=== PATIENT | female | born 1945 | race Caucasian/White ===

== ENCOUNTER → 2018-02-20 14:42 | Outpatient (REF) | payer MEDICARE, BC, SELFPAY ==
[2018-02-21 11:30] LABS: Campylobacter PCR SEE COMMENTS; Salmonella PCR SEE COMMENTS; Shiga Toxin PCR SEE COMMENTS; Shigella/Enteroinvasive Ecoli SEE COMMENTS
== END ==
LOC: LBN 14:42
PROVIDERS: PCP Family Medicine; Visit Provider Family Medicine
DX: R19.7 Diarrhea, unspecified (principal)
CPT/HCPCS: 87329; 87505; 82272; 87230; 87324

== ENCOUNTER → 2018-02-23 10:48 | Outpatient (CLI) | payer MEDICARE, BC, SELFPAY ==
[2018-02-23 13:08] LABS: HCT 41.1 % (36.0-46.0); HGB 13.6 g/dL (12.0-15.5); Mean Corp. HGB Concentration 33.1 g/dL (32.0-36.0); Mean Corpuscular Hemoglobin 32.8 pg (27.0-33.0); Mean Platelet Volume 10.5 fL (8.0-11.0); Platelet Count 279 x1000/uL (130-400); RBC 4.15 m/cumm (4.00-5.20); RBC Distribution Width 12.6 % (11.7-14.6); White Blood Cell Count 4.07 k/cumm (4.4-10.8)
== END ==
PROVIDERS: PCP Family Medicine; Visit Provider Family Medicine
DX: K92.1 Melena (principal)
CPT/HCPCS: 36415; 85027

== ENCOUNTER 2018-06-20 01:55 | Outpatient (CLI) | payer MEDICARE, BC, SELFPAY ==
[2018-06-20 16:14] LABS: ALT 23 U/L (12-78); AST 20 U/L (15-37); Albumin 3.9 g/dL (3.4-5.0); Alkaline Phosphatase 84 U/L (46-116); Anion Gap 8.4 mmol/L (3-11); BUN 16 mg/dL (7-18); Bilirubin, Total 0.3 mg/dL (0.2-1.0); CO2 27.6 mmol/L (21.0-32.0); CREATININE 1.08 mg/dL (0.55-1.02); Calcium 9.3 mg/dL (8.5-10.1); Chloride 105 mmol/L (98-107); Estimated GFR 50.01 (mL/min/1.73m2); Glucose 102 mg/dL (70-100); Potassium 4.4 mmol/L (3.5-5.1); Sodium 141 mmol/L (136-145); TSH (W/Ref FT4) 0.16 uIU/mL (0.358-3.74); Total Protein 6.8 g/dL (6.4-8.2)
[2018-06-20 16:31] LABS: FREE T4 0.91 ng/dL (0.76-1.46)
== END 2018-06-20 02:15 ==
PROVIDERS: PCP Family Medicine; Visit Provider Family Medicine
DX: E03.9 Hypothyroidism, unspecified (principal); N25.9 Disorder resulting from impaired renal tubular function, unspecified
CPT/HCPCS: 80053; 84439; 84443

== ENCOUNTER → 2018-06-29 08:50 | Outpatient (BNVA) | payer MEDICARE, BC, SELFPAY | PROVIDERS: PCP Family Medicine; Visit Provider Urology | DX: N39.0 Urinary tract infection, site not specified (principal); M62.89 Other specified disorders of muscle | CPT/HCPCS: 81003; 99213 ==

== ENCOUNTER 2018-06-29 13:09 | Outpatient (REF) | payer MEDICARE, BC, SELFPAY | END 2018-06-29 13:29 | LOC: LBN 13:09 | PROVIDERS: PCP Family Medicine; Visit Provider Urology | DX: N39.0 Urinary tract infection, site not specified (principal) | CPT/HCPCS: 87077; 87086; 87186 ==

== ENCOUNTER 2018-07-27 07:36 | Day surgery (SDC) | payer MEDICARE, BC, SELFPAY ==
--- NOTE | 2018-07-26 18:16 | W.PIPPEYE ---
History of Present Illness Chief Complaint: Progressive decreased vision, right eye Narrative: The patient is a 72-year-old lady with history of progressive decreased vision in both eyes at both distance and near over the past several months. She notes significant difficulty driving with blurry fuzzy foggy and cloudy vision in both eyes. On examination she was noted to have bilateral nuclear and posterior subcapsular cataracts, with best corrected vision of 20/40 OD, 20/50 OS. The option of cataract surgery was offered to the patient and she wished to proceed. NOTE: The Chief Complaint, HPI, Past Medical History, Past Surgical History, Family History, Social History, Medications, and complete Ophthalmic Exam with detailed Assessment and Plan have already been documented in the patient's outpatient ophthalmic record and are not covered again in detail here. 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) Mild intermittent asthma with acute exacerbation (Chronic 07/07/15) Microscopic hematuria (Chronic 09/11/15) Low back pain (Chronic 07/29/08) Labial burning (Resolved 06/30/15) Irritable bowel syndrome with constipation (Chronic 09/18/17) Impaired renal function disorder (Chronic 09/12/12) Idiopathic peripheral neuropathy (Chronic) Hypothyroidism (Chronic 06/10/08) Hypercholesterolemia (Chronic) Hoarseness (Chronic 12/25/14) 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) Gastroparesis (Chronic) Endometrial polyp (Chronic 04/14/16) Endometrial mass (Chronic 03/07/16) Cough (Chronic) Congestion of both ears (Chronic 01/24/18) Chronic sinusitis (Chronic 02/25/13) Bloating (Chronic 09/18/17) Bipolar disorder (Chronic) Arthritis (Chronic) Surgical History Colonoscopy - MAC Dilation and curettage (03/31/16) EGD - MAC (05/15/14) Hysteroscopy (03/31/16) SHOULDER REPLACEMENT Social History Smoking/Tobacco Use Status: Former Tobacco Use Meds Home Medications Medication Instructions Recorded Confirmed Type Advair Diskus 1 puff INHALATION BID #3 puff 11/19/12 07/25/18 History acetaminophen [Tylenol Extra 2 tab PO Q4H PRN PRN tab-cap 11/19/12 07/25/18 History Strength] calcium carbonate-vitamin D3 2 tab PO BID 11/19/12 07/25/18 History [Caltrate with Vitamin D3] duloxetine [Cymbalta] 1 cap PO DAILY #90 tab-cap 11/19/12 07/25/18 History multivitamin 1 tab PO DAILY 11/19/12 07/25/18 History quetiapine [Seroquel] 1.5 tab PO HS #90 tab-cap 01/16/14 07/25/18 History polyethylene glycol 3350 [Miralax] 17 g PO BID PRN packet 06/03/14 07/25/18 History ondansetron HCl 4 mg PO Q8H PRN #90 tab-cap 02/11/15 07/25/18 History ProAir HFA 2 puff INHALATION Q4H PRN #1 01/20/16 07/25/18 History canister betamethasone dipropionate 15 gm TOPICAL BID PRN #1 script 10/05/16 07/25/18 History estradiol [Estrace] 2 g VG twice weekly #2 tube 05/26/17 07/25/18 Rx atorvastatin [Lipitor] 1 tab PO DAILY #90 tab-cap 08/02/17 07/25/18 Rx levothyroxine 1 tab PO DAILY #90 tab-cap 08/02/17 07/25/18 Rx triamcinolone acetonide 15 gm TOPICAL DAILY PRN #15 gm 09/05/17 07/25/18 History cyclobenzaprine 10 mg PO HS PRN #7 tab-cap 12/12/17 07/11/18 History bupropion HCl 300 mg PO DAILY #1 tab-cap 02/20/18 07/25/18 Rx cranberry [id number] coag 2 ea PO TID 02/20/18 07/25/18 History [Cranberry Tablet] lutein 20 mg PO DAILY 02/20/18 07/25/18 History melatonin 15 mg PO HS 02/20/18 07/25/18 History dexlansoprazole [Dexilant] 60 mg PO DAILY #90 tab-cap 03/12/18 07/25/18 Rx fluticasone 50 mcg/actuation nasal 1 spray NS BID PRN #1 bottle 06/19/18 07/25/18 Rx spray,suspension topiramate 100 mg tablet 100 mg PO HS tab 06/21/18 07/25/18 History linaclotide 145 mcg capsule 290 mcg PO DAILY cap 06/29/18 07/25/18 History acyclovir 15 gm TOPICAL as directed PRN 07/25/18 07/25/18 History azelastine 2 spry NS BID PRN 07/25/18 07/25/18 History gabapentin 600 mg PO HS 07/25/18 07/25/18 History gabapentin [Neurontin] 300 cap PO QAM 07/25/18 07/25/18 History Allergies Allergy/AdvReac Type Severity Reaction Status Date / Time sulfamethoxazole Allergy Severe throat Unverified 07/11/18 14:37 [From Bactrim] swelling, difficulty breathing trimethoprim [From Bactrim] Allergy Severe throat Unverified 07/11/18 14:37 swelling, difficulty breathing Penicillins Allergy Intermediate Hives, Unverified 07/11/18 14:37 tongue swells ibuprofen Allergy Mild Unverified 07/11/18 14:37 clarithromycin AdvReac Intermediate slurred Unverified 07/11/18 14:37 speech, confusion, balance problems Exam OCULAR EXAM:: Most recent ocular examination reveals best corrected visual acuity of 20/40 OD, 20/50 OS. Intraocular pressure is 14 OD, 13 OS. Extraocular motility is normal. Pupils equal, round, and reactive without afferent pupillary defect. Slit-lamp examination shows pupils dilating to 6 mm OU. 2+ brunescent nuclear cataract OU. 3+ posterior subcapsular cataract OD with 1-2+ posterior subcapsular cataract OS. Funduscopic examination reveals optic nerves with cupping of 0.3 OU with good color. The optic nerves have good perfusion and normal color. The retinal vasculature is normal without significant tortuosity or abnormality. The maculas are normal in appearance with normal contour and foveal reflex appropriate for age. The peripheral retina and vitreous are normal. BRIGHTNESS ACUITY TESTING (BAT):: Brightness acuity testing of the right eye off 20/40. Low 20 620/80. Assessment and Plan (1) Posterior subcapsular age-related cataract, right eye: Current visit: No Status: Acute Assessment: Visually significant cataract, right eye. Plan: Cataract extraction with intraocular lens implantation, right eye (2) Nuclear sclerotic cataract of right eye: Current visit: No Status: Acute Assessment: Visually significant cataract, right eye. Plan: Cataract extraction with intraocular lens implantation, right eye Note: NOTE:: The details of the planned surgery, including the risks, indications,limitations,expectations,outcome and possible complications were explained to the patient. The patient understands the complications including, but not limited to: infection, hemorrhage, posterior dislocation of the lens or nuclear fragments which may require the intervention of a vitreoretinal surgeon, possible loss of the eye, or from anesthetic complications. The patient has been made aware of the option of not having surgery, that vision following surgery may not be equal to that prior to surgery, and that the planned surgery may not achieve the intended results. Following this discussion, which the patient appeared to understand, the patient wishes to proceed with cataract surgery with lens implantation of the affected eye to improve and maximize vision.
[2018-07-27 07:53] VITALS: BP 113/78; PULSE 94; RESP 18; TEMP 36.8; O2SAT 95
[2018-07-27] MEDS: Tropicam./Phenyleph. (1/2.5%) 5 ML BTL OD ×3 (08:14→08:25)
[2018-07-27] MEDS: Tetracaine 0.5% 4 ML BTL OD ×4 (08:15→09:22)
[2018-07-27] MEDS: Lidocaine 2% Jelly 6 ML SYR (09:22)
[2018-07-27] MEDS: Lidocaine 1% Pres-Free 5 ML VIAL (09:28)
[2018-07-27] MEDS: Balanced Salt Soln.-PLUS 500 ML BAG (09:28)
[2018-07-27] MEDS: Povidone-Iodine Ophth 30 ML BTL (09:50)
--- NOTE | 2018-07-27 10:00 | W.PM.DSUDISC ---
Discharge Plan Discharge Details Reason For Visit: CATARACT OD Attending Provider: Ernie Branham Primary Care Provider: Marely Singh Home Meds and New Rx's Prescriptions: No Action topiramate [Topamax] 100 mg tablet 100 mg PO HS RF: 0 multivitamin 1 EACH tablet 1 tab PO DAILY RF: 0 Advair Diskus 1 EACH blister with device 1 puff Inhalation BID Qty: 3 RF: 4 acetaminophen [Tylenol Extra Strength] 500 MG tablet 2 tab PO Q4H PRN PRNRF: 0 duloxetine [Cymbalta] 60 MG capsule,delayed release(DR/EC) 1 cap PO DAILY Qty: 90 RF: 4 calcium carbonate-vitamin D3 [Caltrate with Vitamin D3] 1 EACH tablet 2 tab PO BID RF: 0 polyethylene glycol 3350 [Miralax] 17 GM powder in packet 17 g PO BID PRNRF: 0 ondansetron HCl 4 MG tablet 4 mg PO Q8H PRN Qty: 90 RF: 3 ProAir HFA 8.5 GM HFA aerosol inhaler 2 puff Inhalation Q4H PRN Qty: 1 RF: 12 betamethasone dipropionate 15 GM ointment 15 gm Topical BID PRNQty: 1 RF: 0 estradiol [Estrace] 42.5 GM cream 2 g VG twice weekly Qty: 2 RF: 4 levothyroxine 112 MCG tablet 1 tab PO DAILY Qty: 90 RF: 4 atorvastatin [Lipitor] 20 MG tablet 1 tab PO DAILY Qty: 90 RF: 4 triamcinolone acetonide 15 GM ointment 15 gm Topical DAILY PRNQty: 15 RF: 3 cyclobenzaprine 10 MG tablet 10 mg PO HS PRNQty: 7 RF: 0 cranberry avyf-N-wgvvqwlc coag [Loqfjlxta-Icdgybznnh-Tqoytwf C] 1 EACH tablet 2 ea PO TID RF: 0 lutein 20 MG tablet 20 mg PO DAILY RF: 0 melatonin 10 MG tablet 15 mg PO HS RF: 0 bupropion HCl 300 MG tablet extended release 24 hr 300 mg PO DAILY Qty: 1 RF: 0 Dexilant 60 MG capsule,biphase delayed releas 60 mg PO DAILY Qty: 90 RF: 12 fluticasone [Flonase Allergy Relief] 50 mcg/actuation spray,suspension 1 spray NS BID PRN (Reason: nasal congestion) Qty: 1 RF: 11 Linzess 145 mcg capsule 290 mcg PO DAILY RF: 0 gabapentin 600 mg Tablet 600 mg PO HS RF: 0 acyclovir 15 GM ointment 15 gm Topical as directed PRNRF: 0 gabapentin [Neurontin] 300 MG capsule 300 cap PO QAM RF: 0 azelastine 137 MCG/0.137 ML aerosol,spray 2 spry NS BID PRNRF: 0 Discharge Instructions Stand Alone Forms: Post-op Topical Cataract, Janie Helm (DSU) DS: Diagnosis Discharge Diagnosis (1) Status post cataract extraction and insertion of intraocular lens of right eye: Status: Chronic
--- NOTE | 2018-07-27 10:02 | W.PM.OP ---
Date of service: 07/27/18 Time of Service: 10:02 Operative Note DATE OF PROCEDURE: 07/27/18 PRE-OP DIAGNOSIS: Cataract, right eye PROCEDURE: Cataract extraction using phacoemulsification with intraocular lens implant, right eye SURGEON: Ernie Branham ANESTHESIA: MAC and local (sub-tenon's anesthetic infiltration) ESTIMATED BLOOD LOSS: 0 PATHOLOGY: none sent COMPLICATIONS: None Patient was transported to: same day Patient's condition: stable Implants: Theron and [employer] Vision / [employer] Tecnis [id number] intraocular lens Indications: Progressive decreased vision due to cataract, right eye Procedure Description: CATARACT SURGERY OPERATIVE REPORT PREOPERATIVE DIAGNOSIS: Nuclear/posterior subcapsular cataract, right eye POSTOPERATIVE DIAGNOSIS: Same OPERATION: Cataract extraction using phacoemulsification with posterior chamber intraocular lens implant, right eye. IOL: IOL Wad Lubricator/Model: [employer] Vision / CHELI Tecnis ZCB00 IOL Power: + 15.0 diopters IOL Serial Number: [id number] Optic Diameter: 6.0mm Haptic/Overall Diameter: 13.0mm PHACO INFO: [employer] Technologyon Vision System with OZil and Active Fluidics Cumulative Dispersed Energy (CDE): 12.28 seconds SURGEON: Ernie Branham MD, AXEL ANESTHESIA: Monitored Anesthesia Care (MAC), with local sub-tenon's anesthetic infiltration COMPLICATIONS: None SPECIMENS: None INDICATIONS FOR PROCEDURE: The patient is a 72-year-old lady with history of moderate nuclear and dense posterior subcapsular cataract with visual acuity of 20/40 distance, 20/400 near. The option of cataract surgery was offered to the patient and she wished to proceed. PROCEDURE: The correct surgical eye was identified and marked as the right eye and the pupil was dilated in the preoperative area using mydriatics and cycloplegics. The dilated pupil size was 7.5 mm. Oral sedation was administered in the form of an Imprimis MKO Melt (midazolam 3mg/ketamine 25mg/ondansetron 2mg). The patient was brought to the operating room where cardiopulmonary monitoring was instituted and surgical time-out was performed, confirming the correct operative eye and IOL power. Topical anesthesia was administered and ophthalmic povidone-iodine 5% was instilled into the conjunctival fornices. Lidocaine gel was applied to the cornea and the dulce-ocular area was prepped with Betadine 10% solution and draped in the usual sterile fashion for intraocular surgery, including an aperture drape. A Tegaderm transparent film dressing was cut in half and used to cover the lashes and lid margins. Care was taken to sequester the lashes and lid margins under the Tegaderm dressing. A lid speculum was placed between the lids of the operative eye and the Jimmie-Jeffrey operating microscope was maneuvered into position. Anne-Marie scissors were then used to make a conjunctival buttonhole approximately 6mm posterior to the limbus in the inferonasal quadrant. Blunt dissection was carried out to expose bare sclera, and a blunt-tipped sub-tenon?s anesthesia cannula was introduced and passed posteriorly along the globe where non-preserved plain lidocaine was injected into posterior sub-Tenon?s space. A sideport knife was used to make a paracentesis port inferiortemporally, and the anterior chamber was filled with Healon GV. A 2.4mm keratome knife was used to create a half-thickness groove at the limbus and then to construct a three-plane near-clear corneal tunnel extending 2.0mm into clear cornea in the superiortemporal position. . A flap was raised on the anterior capsule and capsulorhexis forceps were used to complete a continuous curvilinear capsulorhexis of 5.0 mm. Balanced salt solution was then used to perform cortical cleaving hydrodissection and nuclear hydrodelineation until the lens could be freely rotated within the capsular bag. The lens nucleus was then disassembled and removed within the capsular bag and iris plane using phacoemulsification. Residual cortical material was removed using the 45-degree angled silicone I/A tip with 0.3mm port. The posterior capsule was carefully polished to remove as much residual lens epithelial cells as safely possible. There was some residual posterior subcapsular plaque superiorly in the equatorial area which could not be safely removed. The capsular bag was then inflated and the anterior chamber deepened with viscoelastic. The lens implant described above was inserted into the capsular bag using the CHELI [place] Injector. A Kuglen hook was used to dial the IOL into position. Residual viscoelastic was then removed first from posterior to the IOL, then from the anterior chamber using the I/A handpiece. The lens implant was noted to center nicely within the capsular bag. The incisions were stromally hydrated, and the anterior chamber was reformed using BSS. Then 0.4cc of moxifloxacin 1.5mg/ml were injected into the capsular bag and anterior chamber. The incisions were checked with a Weck spear and found to be secure. Several drops of ophthalmic povidone-iodine 5% were then applied to the eye followed by two drops of Imprimis combination moxifloxacin/dexamethasone solution. The drapes were removed and a clear plastic protective eye shield was placed over the eye. The patient was then returned to Same Day Surgery in stable condition.
[2018-07-27 10:58] VITALS: BP 106/53; PULSE 87; RESP 18; TEMP 36.5; O2SAT 95
== END 2018-07-27 10:55 | disposition home or self-care (01) ==
LOC: SUR 07:37
PROVIDERS: PCP Family Medicine; Visit Provider Ophthalmology
PROC: (CPT 66984; principal; 2018-07-27 09:30)
DX: H25.811 Combined forms of age-related cataract, right eye (principal)
CPT/HCPCS: 66984; V2632

== ENCOUNTER 2018-08-03 00:29 | Outpatient (CLI) | payer MEDICARE, BC, SELFPAY ==
--- NOTE | 2018-08-03 12:41 | DI.US_ITS ---
SYMPTOM/DIAGNOSIS: ? STONE OR HYDRONEPHROSIS, PELVIC FLOOR DYSFUNCTION, RECURRENT UTI, M62.89, OTHER SPECIFIC DISORDER OF MUSCLE, N39.0 RENAL ULTRASOUND: Routine examination. The right kidney measures 9 cm. long. No renal mass, calculus or obstruction is seen. There is blood flow to the right kidney. The left kidney measures 10.1 cm. long. No renal mass or obstruction is seen. There is an echogenic focus seen in the upper pole of the left kidney. This may represent a non obstructing stone or cortical calcification. There is normal blood flow to the left kidney. The prevoid urinary bladder volume is 170 cc's. The bladder wall is smooth. No intraluminal masses are seen. Both ureteral jets were visualized. The bladder completely emptied upon voiding. IMPRESSION: No evidence of hydronephrosis. Tiny, 4 mm. echogenic focus in the superior pole of the left kidney which may represent a non obstructing stone.
== END 2018-08-03 00:49 ==
PROVIDERS: PCP Family Medicine; Visit Provider Urology
DX: N36.44 Muscular disorders of urethra (principal); N39.0 Urinary tract infection, site not specified; N20.0 Calculus of kidney; M62.89 Other specified disorders of muscle
CPT/HCPCS: 76770

== ENCOUNTER → 2018-08-07 15:20 | Outpatient (BNVA) | payer MEDICARE, BC, SELFPAY | PROVIDERS: PCP Family Medicine; Visit Provider Urology | DX: N39.0 Urinary tract infection, site not specified (principal); B96.20 Unspecified Escherichia coli [E. coli] as the cause of diseases classified elsewhere | CPT/HCPCS: 81003; 99213 ==

== ENCOUNTER 2018-08-07 17:37 | Outpatient (REF) | payer MEDICARE, BC, SELFPAY | END 2018-08-07 17:57 | LOC: LBN 17:37 | PROVIDERS: PCP Family Medicine; Visit Provider Urology | DX: N39.0 Urinary tract infection, site not specified (principal); R10.2 Pelvic and perineal pain | CPT/HCPCS: 87077; 87086; 87186 ==

== ENCOUNTER 2018-08-09 00:22 | Outpatient (CLI) | payer MEDICARE, BC, SELFPAY ==
--- NOTE | 2018-08-09 10:43 | DI.US_ITS ---
SYMPTOMS/DIAGNOSIS: NONTOXIC THYROID NODULE RT, E04.1 THYROID ULTRASOUND: The right thyroid lobe measures 2 x 1 x 1 cm. The isthmus measures 2.4 mm. The left thyroid lobe measures 2.2 x 0.8 x 0.7 cm. There is a well circumscribed 7 x 3 x 6 mm nodule in the mid portion of the right thyroid lobe. Mild vascularity is demonstrated. Both the right and left thyroid lobes are acoustically heterogeneous. SUMMARY: A right thyroid lobe nodule has a maximal diameter of 7 mm. The cut off for a biopsy is generally considered to be approximately 10 mm, however, if there is further question regarding the status of this patient, then ultrasound guided needle biopsy could be performed.
== END 2018-08-09 00:42 ==
PROVIDERS: PCP Family Medicine; Visit Provider Family Medicine
DX: E04.1 Nontoxic single thyroid nodule (principal)
CPT/HCPCS: 76536

== ENCOUNTER 2018-08-10 07:30 | Day surgery (SDC) | payer MEDICARE, BC, SELFPAY ==
--- NOTE | 2018-08-09 18:52 | POEE_ITS ---
History of Present Illness Chief Complaint: Progressive decreased vision, left eye Narrative: The patient is a 72-year old lady with history of diminished visual acuity in both eyes at both distance and near, right eye worse than left. She noted blurry fuzzy foggy and cloudy vision in both eyes. She was noted to have significant bilateral nuclear and posterior subcapsular cataract. She underwent cataract surgery in the right eye on 07/27/2018. Postoperatively she has regained uncorrected vision of 20/20 in the right eye. She now presents for cataract surgery in the left eye. NOTE: The Chief Complaint, HPI, Past Medical History, Past Surgical History, Family History, Social History, Medications, and complete Ophthalmic Exam with detailed Assessment and Plan have already been documented in the patient's outpatient ophthalmic record and are not covered again in detail here. 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) Mild intermittent asthma with acute exacerbation (Chronic 07/07/15) Microscopic hematuria (Chronic 09/11/15) Low back pain (Chronic 07/29/08) Labial burning (Resolved 06/30/15) Irritable bowel syndrome with constipation (Chronic 09/18/17) Impaired renal function disorder (Chronic 09/12/12) Idiopathic peripheral neuropathy (Chronic) Hypothyroidism (Chronic 06/10/08) Hypercholesterolemia (Chronic) Hoarseness (Chronic 12/25/14) 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) Gastroparesis (Chronic) Endometrial polyp (Chronic 04/14/16) Endometrial mass (Chronic 03/07/16) Cough (Chronic) Congestion of both ears (Chronic 01/24/18) Chronic sinusitis (Chronic 02/25/13) Bloating (Chronic 09/18/17) Bipolar disorder (Chronic) Arthritis (Chronic) Nuclear sclerotic cataract of right eye (Resolved) Posterior subcapsular age-related cataract, right eye (Resolved) Surgical History Status post cataract extraction and insertion of intraocular lens of right eye (Chronic 07/27/18) Colonoscopy - MAC Dilation and curettage (03/31/16) EGD - MAC (05/15/14) Hysteroscopy (03/31/16) SHOULDER REPLACEMENT Social History Smoking/Tobacco Use Status: Former Tobacco Use Meds Home Medications Medication Instructions Recorded Confirmed Type Advair Diskus 1 puff INHALATION BID #3 puff 11/19/12 08/02/18 History acetaminophen [Tylenol Extra 2 tab PO Q4H PRN PRN tab-cap 11/19/12 08/02/18 History Strength] calcium carbonate-vitamin D3 2 tab PO BID 11/19/12 08/02/18 History [Caltrate with Vitamin D3] duloxetine [Cymbalta] 1 cap PO DAILY #90 tab-cap 11/19/12 08/02/18 History multivitamin 1 tab PO DAILY 11/19/12 08/02/18 History polyethylene glycol 3350 [Miralax] 17 g PO BID PRN packet 06/03/14 08/02/18 History ondansetron HCl 4 mg PO Q8H PRN #90 tab-cap 02/11/15 08/02/18 History ProAir HFA 2 puff INHALATION Q4H PRN #1 01/20/16 08/02/18 History canister betamethasone dipropionate 15 gm TOPICAL BID PRN #1 script 10/05/16 08/02/18 History estradiol [Estrace] 2 g VG twice weekly #2 tube 05/26/17 08/02/18 Rx atorvastatin [Lipitor] 1 tab PO DAILY #90 tab-cap 08/02/17 08/02/18 Rx levothyroxine 1 tab PO DAILY #90 tab-cap 08/02/17 08/02/18 Rx triamcinolone acetonide 15 gm TOPICAL DAILY PRN #15 gm 09/05/17 08/02/18 History cyclobenzaprine 10 mg PO HS PRN #7 tab-cap 12/12/17 08/02/18 History bupropion HCl 300 mg PO DAILY #1 tab-cap 02/20/18 08/02/18 Rx cranberry ghqy-K-lspablzm coag 2 ea PO TID 02/20/18 08/02/18 History [Cranberry Tablet] lutein 20 mg PO DAILY 02/20/18 08/02/18 History melatonin 15 mg PO HS 02/20/18 08/02/18 History dexlansoprazole [Dexilant] 60 mg PO DAILY #90 tab-cap 03/12/18 08/02/18 Rx fluticasone 50 mcg/actuation nasal 1 spray NS BID PRN #1 bottle 06/19/18 08/02/18 Rx spray,suspension topiramate 100 mg tablet 100 mg PO HS tab 06/21/18 08/02/18 History linaclotide 145 mcg capsule 290 mcg PO DAILY cap 06/29/18 08/02/18 History acyclovir 15 gm TOPICAL as directed PRN 07/25/18 08/02/18 History azelastine 2 spry NS BID PRN 07/25/18 08/02/18 History gabapentin 600 mg PO HS 07/25/18 08/02/18 History gabapentin [Neurontin] 300 cap PO QAM 07/25/18 08/02/18 History nitrofurantoin macrocrystal 50 mg 50 mg PO QID #60 cap 08/07/18 08/07/18 Rx capsule Allergies Allergy/AdvReac Type Severity Reaction Status Date / Time sulfamethoxazole Allergy Severe throat Unverified 08/02/18 08:45 [From Bactrim] swelling, difficulty breathing trimethoprim [From Bactrim] Allergy Severe throat Unverified 08/02/18 08:45 swelling, difficulty breathing Penicillins Allergy Intermediate Hives, Unverified 08/02/18 08:45 tongue swells ibuprofen Allergy Mild Unverified 08/02/18 08:45 clarithromycin AdvReac Intermediate slurred Unverified 08/02/18 08:45 speech, confusion, balance problems Exam OCULAR EXAM:: Most recent ocular examination reveals best corrected vision of 20/20 in the right eye, 20/50 in the left eye. Intraocular pressure is 10 OD, 13 OS. Pupils equal, round, and reactive without afferent pupillary defect extraocular motility is normal. Slit-lamp examination reveals a well-positioned PCIOL OD with trace residual posterior capsular haze. In the left eye there is a 2+ nuclear with 1-2+ posterior subcapsular cataract. Dilated funduscopic examination shows disc cupping of 0.3 OU with good color. The optic nerves have good perfusion and normal color. The retinal vasculature is normal without significant tortuosity or abnormality. The maculas are normal in appearance with normal contour and foveal reflex appropriate for age. The peripheral retina and vitreous are normal. BRIGHTNESS ACUITY TESTING (BAT):: Brightness acuity testing of the left eye off 20/50. Low is 20/80. Medium is 20/100. High is 20/200. Assessment and Plan (1) Posterior subcapsular age-related cataract of left eye: Current visit: Yes Status: Acute Assessment: Visually significant cataract, left eye. Plan: Cataract extraction with intraocular lens implantation, left eye (2) Nuclear sclerotic cataract of left eye: Current visit: Yes Status: Acute Assessment: Visually significant cataract, left eye. Plan: Cataract extraction with intraocular lens implantation, left eye Note: NOTE:: The details of the planned surgery, including the risks, indications,limitations,expectations,outcome and possible complications were explained to the patient. The patient understands the complications including, but not limited to: infection, hemorrhage, posterior dislocation of the lens or nuclear fragments which may require the intervention of a vitreoretinal surgeon, possible loss of the eye, or from anesthetic complications. The patient has been made aware of the option of not having surgery, that vision following surgery may not be equal to that prior to surgery, and that the planned surgery may not achieve the intended results. Following this discussion, which the patient appeared to understand, the patient wishes to proceed with cataract surgery with lens implantation of the affected eye to improve and maximize vision.
--- NOTE | 2018-08-09 18:52 | W.PM.DSUDISC ---
Discharge Plan Discharge Details Attending Provider: Ernie Branham Primary Care Provider: Marely Singh Home Meds and New Rx's Prescriptions: No Action nitrofurantoin macrocrystal 50 mg capsule 50 mg PO QID Qty: 60 RF: 0 topiramate [Topamax] 100 mg tablet 100 mg PO HS RF: 0 multivitamin 1 EACH tablet 1 tab PO DAILY RF: 0 Advair Diskus 1 EACH blister with device 1 puff Inhalation BID Qty: 3 RF: 4 acetaminophen [Tylenol Extra Strength] 500 MG tablet 2 tab PO Q4H PRN PRNRF: 0 duloxetine [Cymbalta] 60 MG capsule,delayed release(DR/EC) 1 cap PO DAILY Qty: 90 RF: 4 calcium carbonate-vitamin D3 [Caltrate with Vitamin D3] 1 EACH tablet 2 tab PO BID RF: 0 polyethylene glycol 3350 [Miralax] 17 GM powder in packet 17 g PO BID PRNRF: 0 ondansetron HCl 4 MG tablet 4 mg PO Q8H PRN Qty: 90 RF: 3 ProAir HFA 8.5 GM HFA aerosol inhaler 2 puff Inhalation Q4H PRN Qty: 1 RF: 12 betamethasone dipropionate 15 GM ointment 15 gm Topical BID PRNQty: 1 RF: 0 estradiol [Estrace] 42.5 GM cream 2 g VG twice weekly Qty: 2 RF: 4 levothyroxine 112 MCG tablet 1 tab PO DAILY Qty: 90 RF: 4 atorvastatin [Lipitor] 20 MG tablet 1 tab PO DAILY Qty: 90 RF: 4 triamcinolone acetonide 15 GM ointment 15 gm Topical DAILY PRNQty: 15 RF: 3 cyclobenzaprine 10 MG tablet 10 mg PO HS PRNQty: 7 RF: 0 cranberry tsmr-W-cpjxfxbr coag [Giwodaowg-Xdwdrhwcia-Cysiktq C] 1 EACH tablet 2 ea PO TID RF: 0 lutein 20 MG tablet 20 mg PO DAILY RF: 0 melatonin 10 MG tablet 15 mg PO HS RF: 0 bupropion HCl 300 MG tablet extended release 24 hr 300 mg PO DAILY Qty: 1 RF: 0 Dexilant 60 MG capsule,biphase delayed releas 60 mg PO DAILY Qty: 90 RF: 12 fluticasone [Flonase Allergy Relief] 50 mcg/actuation spray,suspension 1 spray NS BID PRN (Reason: nasal congestion) Qty: 1 RF: 11 Linzess 145 mcg capsule 290 mcg PO DAILY RF: 0 gabapentin 600 mg Tablet 600 mg PO HS RF: 0 acyclovir 15 GM ointment 15 gm Topical as directed PRNRF: 0 gabapentin [Neurontin] 300 MG capsule 300 cap PO QAM RF: 0 azelastine 137 MCG/0.137 ML aerosol,spray 2 spry NS BID PRNRF: 0 Discharge Instructions Stand Alone Forms: Post-op Topical Cataract, Janie Helm (DSU) DS: Diagnosis Discharge Diagnosis (1) Status post cataract extraction and insertion of intraocular lens of left eye: Status: Chronic
[2018-08-10 07:52] VITALS: BP 106/58; PULSE 87; RESP 16; TEMP 36.4; O2SAT 95
[2018-08-10] MEDS: Tetracaine 0.5% 4 ML BTL OS ×3 (07:57→09:30)
[2018-08-10] MEDS: Tropicam./Phenyleph. (1/2.5%) 5 ML BTL OS ×2 (07:58→08:03)
[2018-08-10] MEDS: Lidocaine 2% Jelly 6 ML SYR (09:29)
[2018-08-10] MEDS: Balanced Salt Soln.-PLUS 500 ML BAG (09:30)
[2018-08-10] MEDS: Lidocaine 1% Pres-Free 5 ML VIAL (09:35)
[2018-08-10] MEDS: Povidone-Iodine Ophth 30 ML BTL (09:35)
--- NOTE | 2018-08-10 10:02 | ROE_ITS ---
Date of service: 08/10/18 Time of Service: 10:01 Operative Note DATE OF PROCEDURE: 08/10/18 PRE-OP DIAGNOSIS: Cataract, left eye POST-OP DIAGNOSIS: same PROCEDURE: Cataract extraction using phacoemulsification with intraocular lens implant, left eye SURGEON: Ernie Branham ANESTHESIA: MAC and local (sub-tenon's anesthetic infiltration) PATHOLOGY: none sent COMPLICATIONS: None Patient was transported to: same day Patient's condition: stable Implants: Theron and Theron Vision / [employer] Tecnis ZCB00 Indications: Progressive decreased vision due to cataract, left eye Procedure Description: CATARACT SURGERY OPERATIVE REPORT PREOPERATIVE DIAGNOSIS: Nuclear/posterior subcapsular cataract, left eye POSTOPERATIVE DIAGNOSIS: Same OPERATION: Cataract extraction using phacoemulsification with posterior chamber intraocular lens implant, left eye. IOL: IOL Field Human Resources Manager/Model: [employer] Vision / CHELI Tecnis ZCB00 IOL Power: + 15.0 diopters IOL Serial Number: [id number] Optic Diameter: 6.0mm Haptic/Overall Diameter: 13.0mm PHACO INFO: Krun[employer] R Peopleon Vision System with OZil and Active [employer]uidics Cumulative Dispersed Energy (CDE): 12.52 seconds SURGEON: Ernie Branham MD, AXEL ANESTHESIA: Monitored Anesthesia Care (MAC), with local sub-tenon's anesthetic infiltration COMPLICATIONS: None SPECIMENS: None INDICATIONS FOR PROCEDURE: Patient is a 72-year-old lady with history of significant nuclear and posterior subcapsular cataracts, right eye greater than left. She is Ardie undergone cataract surgery in her right eye and is doing well postoperatively with uncorrected visual acuity of 20/20. She now presents for cataract surgery in the left eye PROCEDURE: The correct surgical eye was identified and marked as the left eye and the pupil was dilated in the preoperative area using mydriatics and cycloplegics. The dilated pupil size was 7.5 mm. Oral sedation was administered in the form of an Imprimis MKO Melt (midazolam 3mg/ketamine 25mg/ondansetron 2mg). The patient was brought to the operating room where cardiopulmonary monitoring was instituted and surgical time-out was performed, confirming the correct operative eye and IOL power. Topical anesthesia was administered and ophthalmic povidone-iodine 5% was instilled into the conjunctival fornices. Lidocaine gel was applied to the cornea and the dulce-ocular area was prepped with Betadine 10% solution and draped in the usual sterile fashion for intraocular surgery, including an aperture drape. A Tegaderm transparent film dressing was cut in half and used to cover the lashes and lid margins. Care was taken to sequester the lashes and lid margins under the Tegaderm dressing. A lid speculum was placed between the lids of the operative eye and the Jimmie-Jeffrey operating microscope was maneuvered into position. Anne-Marie scissors were then used to make a conjunctival buttonhole approximately 6mm posterior to the limbus in the inferonasal quadrant. Blunt dissection was carried out to expose bare sclera, and a blunt-tipped sub-tenon?s anesthesia cannula was introduced and passed posteriorly along the globe where non- preserved plain lidocaine was injected into posterior sub-Tenon?s space. A sideport knife was used to make a paracentesis port superior/superiortemporal, and the anterior chamber was filled with Healon GV. A 2.4mm keratome knife was used to create a half-thickness groove at the limbus and then to construct a three-plane near-clear corneal tunnel extending 2.0mm into clear cornea in the temporal position. . A flap was raised on the anterior capsule and capsulorhexis forceps were used to complete a continuous curvilinear capsulorhexis of 5.0 mm. Balanced salt solution was then used to perform cortical cleaving hydrodissection and nuclear hydrodelineation until the lens could be freely rotated within the capsular bag. The lens nucleus was then disassembled and removed within the capsular bag and iris plane using phacoemulsification. Residual cortical material was removed using the 45-degree angled silicone I/A tip with 0.3mm port. The posterior capsule was carefully polished to remove as much residual lens epithelial cells as safely possible. The capsular bag was then inflated and the anterior chamber deepened with viscoelastic. The lens implant described above was inserted into the capsular bag using the CHELI Belkofski Injector. A Kuglen hook was used to dial the IOL into position. Residual viscoelastic was then removed first from posterior to the IOL, then from the anterior chamber using the I/A handpiece. The lens implant was noted to center nicely within the capsular bag. The incisions were stromally hydrated, and the anterior chamber was reformed using BSS. Then 0.4cc of moxifloxacin 1.5mg/ml were injected into the capsular bag and anterior chamber. The incisions were checked with a Weck spear and found to be secure. Several drops of ophthalmic povidone-iodine 5% were then applied to the eye followed by two drops of Imprimis combination moxifloxacin/dexamethasone solution. The drapes were removed and a clear plastic protective eye shield was placed over the eye. The patient was then returned to Same Day Surgery in stable condition.
[2018-08-10 10:26] VITALS: BP 109/74; PULSE 84; RESP 16; TEMP 36.4; O2SAT 95
== END 2018-08-10 10:47 | disposition home or self-care (01) ==
LOC: SUR 07:31
PROVIDERS: PCP Family Medicine; Visit Provider Ophthalmology
PROC: (CPT 66984; principal; 2018-08-10 09:30)
DX: H25.812 Combined forms of age-related cataract, left eye (principal); Z98.41 Cataract extraction status, right eye; Z96.1 Presence of intraocular lens
CPT/HCPCS: 66984; V2632

== ENCOUNTER → 2018-09-11 10:59 | Outpatient (BNVA) | payer MEDICARE, BC, SELFPAY | PROVIDERS: PCP Family Medicine; Visit Provider Urology | DX: R10.2 Pelvic and perineal pain (principal); Z87.440 Personal history of urinary (tract) infections | CPT/HCPCS: 52000; 99213 ==

== ENCOUNTER 2018-10-09 01:51 | Outpatient (CLI) | payer MEDICARE, BC, SELFPAY ==
[2018-10-09 13:29] LABS: TSH (W/Ref FT4) 0.12 uIU/mL (0.358-3.74)
[2018-10-09 14:08] LABS: FREE T4 0.96 ng/dL (0.76-1.46)
== END 2018-10-09 02:11 ==
PROVIDERS: PCP Family Medicine; Visit Provider Family Medicine
DX: E03.9 Hypothyroidism, unspecified (principal)
CPT/HCPCS: 36415; 84439; 84443

== ENCOUNTER 2018-10-14 12:12 | Emergency (ER) | payer MEDICARE, BC, SELFPAY ==
[2018-10-14] VITALS (44 sets, daily range): BP systolic 101–125; BP diastolic 50–86; PULSE 79–147; RESP 8–32; TEMP 36.4–37.1; O2SAT 92–99
[2018-10-14] MEDS: Normal Saline 1,000 ML 1000 ML IV (12:20)
[2018-10-14 12:35] LABS: Abs Immature Grans 0.01 k/cumm (0.0-0.09); Absolute Basophil Count 0.05 k/cumm (0.0-0.2); Absolute Eosinophil Count 0.19 k/cumm (0.0-0.7); Absolute Lymphocyte Count 1.08 k/cumm (1.2-3.4); Absolute Monocyte Count 0.56 k/cumm (0.11-0.7); Absolute Neutrophil Count 3.05 k/cumm (1.2-6.7); Eosinophils % 3.8; HCT 43.1 % (36.0-46.0); HGB 14.3 g/dL (12.0-15.5); Immature Grans % 0.2; Lymphocytes % 21.9; Mean Corp. HGB Concentration 33.2 g/dL (32.0-36.0); Mean Corpuscular Hemoglobin 32.7 pg (27.0-33.0); Mean Corpuscular Volume 98.6 fL (80-95); Mean Platelet Volume 10.6 fL (8.0-11.0); Monocytes % 11.3; Neutrophils % 61.8; Platelet Count 225 x1000/uL (130-400); RBC 4.37 m/cumm (4.00-5.20); RBC Distribution Width 12.7 % (11.7-14.6); White Blood Cell Count 4.94 k/cumm (4.4-10.8)
--- NOTE | 2018-10-14 12:42 | ED.GENADUL_ITS ---
Discharge Plan Disposition Patient Disposition: HOME Condition: Good Discharge Details Chief Complaint: Chest Pain Clinical Impression: Chest pain, Atrial flutter Primary Care Provider: Marely Singh ED Provider: David Mccormick Home Meds and New Rx's Prescriptions: No Action nitrofurantoin monohyd/m-cryst 100 mg capsule 100 mg PO BID Qty: 20 RF: 0 multivitamin 1 EACH tablet 1 tab PO DAILY RF: 0 fluticasone propion-salmeterol [Advair Diskus] 1 EACH blister with device 1 puff Inhalation BID Qty: 3 RF: 4 acetaminophen [Tylenol Extra Strength] 500 MG tablet 2 tab PO Q4H PRN PRNRF: 0 duloxetine [Cymbalta] 60 MG capsule,delayed release(DR/EC) 1 cap PO DAILY Qty: 90 RF: 4 calcium carbonate-vitamin D3 [Caltrate with Vitamin D3] 1 EACH tablet 2 tab PO BID RF: 0 ondansetron HCl 4 MG tablet 4 mg PO Q8H PRN Qty: 90 RF: 3 albuterol sulfate [ProAir HFA] 8.5 GM HFA aerosol inhaler 2 puff Inhalation Q4H PRN Qty: 1 RF: 12 estradiol [Estrace] 42.5 GM cream 2 g VG twice weekly Qty: 2 RF: 4 triamcinolone acetonide 15 GM ointment 15 gm Topical DAILY PRNQty: 15 RF: 3 cyclobenzaprine 10 MG tablet 10 mg PO HS PRNQty: 7 RF: 0 cranberry noda-U-xfyjjegc coag [Thuguidnk-Pgghwefkkt-Ltccfmf C] 1 EACH tablet 2 ea PO TID RF: 0 lutein 20 MG tablet 20 mg PO DAILY RF: 0 melatonin 10 MG tablet 15 mg PO HS RF: 0 bupropion HCl 300 MG tablet extended release 24 hr 300 mg PO DAILY Qty: 1 RF: 0 Dexilant 60 MG capsule,biphase delayed releas 60 mg PO DAILY Qty: 90 RF: 12 fluticasone propionate [Flonase Allergy Relief] 50 mcg/actuation spray,suspension 1 spray NS BID PRN (Reason: nasal congestion) Qty: 1 RF: 11 Linzess 145 mcg capsule 290 mcg PO DAILY RF: 0 levothyroxine 112 mcg tablet 112 mcg PO DAILY Qty: 90 RF: 4 atorvastatin [Lipitor] 20 mg tablet 20 mg PO DAILY Qty: 90 RF: 4 gabapentin 600 mg Tablet 600 mg PO HS RF: 0 acyclovir 15 GM ointment 15 gm Topical as directed PRNRF: 0 gabapentin [Neurontin] 300 MG capsule 300 cap PO QAM RF: 0 azelastine 137 MCG/0.137 ML aerosol,spray 2 spry NS BID PRNRF: 0 Discharge Instructions Instructions: Chest Pain (ED) Additional Instructions: Please take a full-strength 325mg aspirin every day. Please follow-up immediately with your primary care provider. You will be contacted for placement of the Zio patch. If you notice any worsening of your symptoms, or any new symptoms such as vomiting, diarrhea, fever, chills, shortness of breath, chest pain, numbness, weakness, or fainting , please return immediately to the emergency department for reevaluation. Please follow up with your primary care provider as soon as possible for reassessment and reevaluation. As always, it was a pleasure participating in your medical care today. Referrals: Marely Singh MD, [place] [Primary Care Provider] - Medical Decision Making This is a pleasant 72-year-old female with a past medical history of thyroid disease, high cholesterol, who presents today with chest pain for the last week, which she describes as a notable heaviness in weight. It is worsened with exertion. Improved by nothing. Radiation down the arm on the left in the neck. Is notably worse over the last 2 days, and she has associated palpitati ons. She has no history of blood clots or cardiac disease. Physical exam demonstrates no significant abnormalities, lung sounds are clear. Notably tachycardic on EKG, concern for atrial flutter versus A. fib which would be new. We will evaluate for PE, cardiac etiology, dehydration, and no other acute process. 4:37 PM The patient's laboratory workup has returned, no white count, no significant electrolyte abnormality. Renal function is stable, and well within her normal limits. Serial troponins are benign, serial EKGs are benign. No evidence of STEMI. With benign and the patient's current clinical status her symptoms are inconsistent with a cardiac etiology at this time. Of concern her initial EKG when it was at the elevated rate of 126 did appear to resemble questionable atrial fibrillation or a flutter. This completely resolved on its own, suggestive of paroxysmal A. fib or a flutter. Because of her chads vas 2 score literature would recommend that she would benefit from antiplatelet therapy. I did discuss this with her and recommend 325 aspirin daily. Because of the atypical initial EKG findings we initially tried to order a Holter monitor here however none are available. We will schedule outpatient zio patch placement. With near complete resolution of her symptoms, especially in the absence of any adjunctive therapies of nitroglycerin or narcotic or pain relievers, the patient feels much better, she continues to demonstrate notably reassuring vital signs with no evidence of tachypnea, hypoxemia, respiratory distress. The patient's and the patient now states that she has been having notable stressors in her life, most of which should resolve within the next few weeks. They are concerned that some of her symptoms may very well be stress related. With the longevity of her symptoms for the past week showing no abnormalities on laboratory workup EKG workup or imaging workup, and with her symptoms and consistent with a cardiac etiology and no evidence of PE or dissection on labs, or imaging, I do feel that stress may certainly be a pertinent component to her symptoms. Recommended close follow-up with her primary care provider, as well as prompt return if she has any worsening of her symptoms. I have extensively reviewed the treatment plan and discharge instructions with the patient and their family. I have addressed all patient concerns at this time. The patient and family was made aware of what symptoms to monitor for that would warrant a return to the emergency department. Discussed the plan with the patient and family, they demonstrate verbal understanding and agreement with our assessment and plan at this time. EKG 12:18 Rate 126, QTc 484, QRS 90, atrial flutter versus fibrillation. She nonspecific minimal ST depressions in V4, no significant ST elevations. No Q waves. Findings are new compared to prior EKG on 12/01/17 EKG 12:59 Rate 84, intervals normal, sinus rhythm, no significant ST elevations or depre ssions, no T wave inversions, no Q waves. Normal EKG EKG 16:05 Rate 83, intervals normal, sinus rhythm, no significant ST elevations or depressions, no T wave inversions, no Q waves. Unremarkable EKG COMPARISON: RF BARIUM SWALLOW W PA LAT CXR 08/22/2013 8:59 AM FINDINGS: Pulmonary arteries: No evidence of pulmonary embolus to the segmental level. Aorta: No aneurysm of the aorta. No dissection of the aorta. Lungs: Normal. No consolidation. No masses. Pleural space: Normal. No pneumothorax. No pleural effusion. Heart: Normal. No cardiomegaly. No pericardial effusion. Gallbladder and bile ducts: Cholecystectomy Lymph nodes: Unremarkable. No enlarged lymph nodes. Bones/joints: Unremarkable. No acute fracture. Soft tissues: Unremarkable. Other findings: Left humeral prosthesis IMPRESSION: 1. No evidence of pulmonary embolus to the segmental level. 2. No aneurysm of the aorta. 3. No dissection of the aorta. Thank you for allowing us to participate in the care of your patient. Dictated and Authenticated by: Stefano You MD [facility] General Date/Time Provider Initiated Documentation: 10/14/18 12:14 . [facility] Narrative: This is a 72-year-old female with a past medical history of hypertension, high cholesterol, thyroid disease, who presents today for evaluation of chest pain. Patient states that for the last week she has had chest pain, she describes it as a heavy ton of bricks sitting on her chest, it is worsened with exertion and associated with palpitations. It is been notably worse over the last 2 days. She has associated radiation into her left arm and neck with tingling. She denies any vomiting, diarrhea, fever, chills, headache, neck spasm, dysuria or hematuria. She denies any previous history of blood clots, dissection, cardiac disease, heart attacks or strokes. She has no family history of cardiac disease. She does not smoke. She denies any other complaints at this time. Symptoms are not made better or worse with position. She denies any recent surgeries, procedures or long trips. She denies any IV or illicit drug use. Related Data Home Medications Medication Instructions Recorded Confirmed acetaminophen [Tylenol Extra 2 tab PO Q4H PRN PRN tab-cap 11/19/12 10/14/18 Strength] calcium carbonate-vitamin D3 2 tab PO BID 11/19/12 10/14/18 [Caltrate with Vitamin D3] duloxetine [Cymbalta] 1 cap PO DAILY #90 tab-cap 11/19/12 10/14/18 fluticasone propion-salmeterol 1 puff INHALATION BID #3 puff 11/19/12 10/14/18 [Advair Diskus] multivitamin 1 tab PO DAILY 11/19/12 10/14/18 ondansetron HCl 4 mg PO Q8H PRN #90 tab-cap 02/11/15 10/14/18 albuterol sulfate [ProAir HFA] 2 puff INHALATION Q4H PRN #1 01/20/16 10/14/18 canister estradiol [Estrace] 2 g VG twice weekly #2 tube 05/26/17 10/14/18 triamcinolone acetonide 15 gm TOPICAL DAILY PRN #15 gm 09/05/17 10/14/18 cyclobenzaprine 10 mg PO HS PRN #7 tab-cap 12/12/17 10/14/18 bupropion HCl 300 mg PO DAILY #1 tab-cap 02/20/18 10/14/18 cranberry vpls-P-osvlgxcl coag 2 ea PO TID 02/20/18 10/14/18 [Cranberry Tablet] lutein 20 mg PO DAILY 02/20/18 10/14/18 melatonin 15 mg PO HS 02/20/18 10/14/18 dexlansoprazole [Dexilant] 60 mg PO DAILY #90 tab-cap 03/12/18 10/14/18 fluticasone propionate 50 1 spray NS BID PRN #1 bottle 06/19/18 10/14/18 mcg/actuation nasal spray,suspension linaclotide 145 mcg capsule 290 mcg PO DAILY cap 06/29/18 10/14/18 acyclovir 15 gm TOPICAL as directed PRN 07/25/18 10/14/18 azelastine 2 spry NS BID PRN 07/25/18 10/14/18 gabapentin 600 mg PO HS 07/25/18 10/14/18 gabapentin [Neurontin] 300 cap PO QAM 07/25/18 10/14/18 atorvastatin 20 mg tablet 20 mg PO DAILY #90 tab-cap 08/25/18 10/14/18 levothyroxine 112 mcg tablet 112 mcg PO DAILY #90 tab-cap 08/25/18 10/14/18 nitrofurantoin 100 mg PO BID #20 cap 09/11/18 10/14/18 monohydrate/macrocrystals 100 mg capsule Previous Rx's Medication Instructions Recorded estradiol [Estrace] 2 g VG twice weekly #2 tube 05/26/17 bupropion HCl 300 mg PO DAILY #1 tab-cap 02/20/18 dexlansoprazole [Dexilant] 60 mg PO DAILY #90 tab-cap 03/12/18 fluticasone propionate 50 1 spray NS BID PRN #1 bottle 06/19/18 mcg/actuation nasal spray,suspension atorvastatin 20 mg tablet 20 mg PO DAILY #90 tab-cap 08/25/18 levothyroxine 112 mcg tablet 112 mcg PO DAILY #90 tab-cap 08/25/18 nitrofurantoin 100 mg PO BID #20 cap 09/11/18 monohydrate/macrocrystals 100 mg capsule Allergies Allergy/AdvReac Type Severity Reaction Status Date / Time sulfamethoxazole Allergy Severe throat Verified 10/14/18 12:23 [From Bactrim] swelling, difficulty breathing trimethoprim [From Bactrim] Allergy Severe throat Verified 10/14/18 12:23 swelling, difficulty breathing Penicillins Allergy Intermediate Hives, Verified 10/14/18 12:23 tongue swells ibuprofen Allergy Mild Verified 10/14/18 12:23 clarithromycin AdvReac Intermediate slurred Verified 10/14/18 12:23 speech, confusion, balance problems General Stated Complaint: Chest Pain NADIA: 2 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) Mild intermittent asthma with acute exacerbation (Chronic 07/07/15) Microscopic hematuria (Chronic 09/11/15) Low back pain (Chronic 07/29/08) Irritable bowel syndrome with constipation (Chronic 09/18/17) Impaired renal function disorder (Chronic 09/12/12) Idiopathic peripheral neuropathy (Chronic) Hypothyroidism (Chronic 06/10/08) Hypercholesterolemia (Chronic) Hoarseness (Chronic 12/25/14) 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) Gastroparesis (Chronic) Endometrial polyp (Chronic 04/14/16) Endometrial mass (Chronic 03/07/16) Cough (Chronic) Congestion of both ears (Chronic 01/24/18) Chronic sinusitis (Chronic 02/25/13) Bloating (Chronic 09/18/17) Bipolar disorder (Chronic) Arthritis (Chronic) Alcohol abuse (Resolved) Closed fracture of lower leg (Resolved) Diarrhea (Resolved 02/20/18) Goiter (Resolved) Labial burning (Resolved 06/30/15) Nuclear sclerotic cataract of left eye (Resolved) Nuclear sclerotic cataract of right eye (Resolved) Pelvic pain in female (Resolved 03/01/16) Pneumonia, organism unspecified (Resolved) Posterior subcapsular age-related cataract of left eye (Resolved) Posterior subcapsular age-related cataract, right eye (Resolved) Surgical History Status post cataract extraction and insertion of intraocular lens of left eye (Chronic 08/10/18) Status post cataract extraction and insertion of intraocular lens of right eye (Chronic 07/27/18) H/O esophagogastroduodenoscopy (Resolved) H/O shoulder replacement (Resolved) Colonoscopy - MAC Dilation and curettage (03/31/16) EGD - MAC (05/15/14) Hysteroscopy (03/31/16) SHOULDER REPLACEMENT Social History Smoking/Tobacco Use Status: Former Tobacco Use Drug use: Never Substance use type: does not use Details: quit smoking 30 yrs ago Do you feel safe at home: Yes Do you feel safe in your relationship?: Yes Exam Narrative Exam Narrative: 1.Const: Well-nourished, Well-developed, appearing stated age 2.Eyes: PERRL, no conjunctival injection, and symmetrical lids. 3.ENT: Atraumatic external nose and ears. Moist MM. Neck: Symmetric, trachea midline, No thyromegaly. 4.CVS: +S1/S2, No murmurs or gallops. Peripheral pulses 2+ and equal in all extremities. Brisk capillary refill in all extremities. 5.RESP: Unlabored respiratory effort. Clear to auscultation bilaterally. No wheezes rales or rhonchi 6.GI: Soft, Nontender/Nondistended, No hepatosplenomegaly. No guarding or rebound. 7.MSK: Normocephalic/Atraumatic, Extremities w/o deformity or ttp No cyanosis or clubbing, Normal movement of all extremities 8.Skin: Warm, Dry. No rashes or lesions. 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 Sensation grossly intact, no focal neurologic deficits. 10.Psych: (AAO) x3. Appropriate mood and affect Course Vital Signs Temperature 37.0 C 10/14/18 12:16 Pulse 136 H 10/14/18 12:16 Respiratory Rate 17 10/14/18 12:16 Blood Pressure 125/82 10/14/18 12:16 Pulse Oximetry 98 10/14/18 12:16 Temperature 37.0 C 10/14/18 12:16 Temperature Source Skin 10/14/18 12:16 Pulse 136 H 10/14/18 12:16 Respiratory Rate 12 10/14/18 12:22 Respiratory Effort 10/14/18 12:24 Respiratory Depth Normal 10/14/18 12:22 Blood Pressure 125/82 10/14/18 12:16 Blood Pressure Position Supine 10/14/18 12:16 Pulse Oximetry 98 10/14/18 12:16 Oxygen Delivery Method Room Air 10/14/18 12:16 Oxygen Flow Rate 0 10/14/18 12:16 Pain Level 6 10/14/18 12:16
[2018-10-14 12:49] LABS: INR 0.9 (0.9-1.1); PTT Activated 21.9 sec (21.0-31.4); Prothrombin Time 8.9 sec (9.3-11.0)
[2018-10-14 12:57] LABS: ALT 28 U/L (12-78); AST 19 U/L (15-37); Albumin 4.1 g/dL (3.4-5.0); Alkaline Phosphatase 105 U/L (46-116); Anion Gap 9.9 mmol/L (3-11); BUN 18 mg/dL (7-18); Bilirubin, Total 0.5 mg/dL (0.2-1.0); CO2 29.1 mmol/L (21.0-32.0); CREATININE 1.22 mg/dL (0.55-1.02); Calcium 9.8 mg/dL (8.5-10.1); Chloride 102 mmol/L (98-107); Estimated GFR 43.45 (mL/min/1.73m2); Glucose 117 mg/dL (70-100); NT-proBNP 306 pg/mL; Potassium 4.1 mmol/L (3.5-5.1); Sodium 141 mmol/L (136-145); TSH (W/Ref FT4) 0.11 uIU/mL (0.358-3.74); Total Protein 7.5 g/dL (6.4-8.2)
[2018-10-14 12:59] LABS: Troponin I < 0.02 ng/mL (0.00-0.06)
--- NOTE | 2018-10-14 14:00 | DI.CT_ITS ---
SYMPTOMS/DIAGNOSIS: TACHY, SOB, CHEST PAIN, ? PE CT ANGIOGRAPHY CHEST: CT angiography was performed with multi slice acquisition and multi planar and 3D reconstruction. CT angiography of the chest was performed with intravenous infusion of 63 cc's of Omnipaque 350. Images obtained through the upper abdomen are unremarkable. There is no evidence of pulmonary embolic disease. There is no evidence of thoracic aortic dissection or aneurysm. No mediastinal or hilar adenopathy seen. Tracheobronchial tree appears intact. No pleural effusion or pulmonary consolidation. CONCLUSION: Normal CTA chest.
[2018-10-14] MEDS: Omnipaque 350 MG/ML 100 ML BTL IJ (14:11)
[2018-10-14] MEDS: Albuterol/Ipratropium 3 ML UPD VIAL UPD (14:30)
--- NOTE | 2018-10-14 14:38 | DI.VRAD_ITS ---
EXAM: CT Angiography Chest With Contrast EXAM DATE/TIME: 10/14/2018 12:25 PM CLINICAL HISTORY: 72 years old, female; Pain and signs and symptoms; Shortness of breath; Chest pain; Type not specified; Patient HX: Tachy, SOB, cp, R/O pe. TECHNIQUE: Imaging protocol: Axial computed tomographic angiography images of the chest with intravenous contrast using CT angiography protocol. Coronal and sagittal reformatted images were created and reviewed. 3D rendering: MIP reconstructed images were created and reviewed. Radiation optimization: All CT scans at this facility use at least one of these dose optimization techniques: automated exposure control; mA and/or kV adjustment per patient size (includes targeted exams where dose is matched to clinical indication); or iterative reconstruction. Contrast material: omnipaque 350 Contrast volume: 63 ml Contrast route: iv COMPARISON: RF BARIUM SWALLOW W PA LAT CXR 08/22/2013 8:59 AM FINDINGS: Pulmonary arteries: No evidence of pulmonary embolus to the segmental level. Aorta: No aneurysm of the aorta. No dissection of the aorta. Lungs: Normal. No consolidation. No masses. Pleural space: Normal. No pneumothorax. No pleural effusion. Heart: Normal. No cardiomegaly. No pericardial effusion. Gallbladder and bile ducts: Cholecystectomy Lymph nodes: Unremarkable. No enlarged lymph nodes. Bones/joints: Unremarkable. No acute fracture. Soft tissues: Unremarkable. Other findings: Left humeral prosthesis IMPRESSION: 1. No evidence of pulmonary embolus to the segmental level. 2. No aneurysm of the aorta. 3. No dissection of the aorta. Dictated and Authenticated by: Stefano You MD. Ordering:MAHENDRA Hernandez MD
[2018-10-14 15:31] LABS: Troponin I < 0.02 ng/mL (0.00-0.06)
--- NOTE | 2018-10-15 08:35 | PDOC.ERCMPRO ---
Care Management Progress Note 10/15-Dr. Mccormick requested assistance with a zio patch placement and PCP f/u. Called [facility] and they have requisition. Spoke with Heladio. Heladio requested this CM call [facility] to discuss schedule. Called [facility] and left a voice mail on their machine about above. Referral also faxed to Dr. Singh's office (PCP) requesting f/u.
== END 2018-10-14 16:37 | disposition home or self-care (01) ==
PROVIDERS: Emergency Provider Student in an Organized Health Care Education/Training Program; PCP Family Medicine
DX: R07.9 Chest pain, unspecified (principal); I48.92 Unspecified atrial flutter
CPT/HCPCS: 36415; 71275; 80053; 93005; 96360; 99285; 83880; 84439; 84443; 84484; 85025; 85610; 85730; 93010; J3490; J7620

== ENCOUNTER 2018-10-19 03:07 | Outpatient (CLI) | payer MEDICARE, BC, SELFPAY ==
--- NOTE | 2018-11-07 08:58 | ZIOP_ITS ---
ZIO Patch DATE OF DICTATION November 07, 2018 DATE OF STUDY November 07, 2018 STUDY INDICATIONS Palpitations. REQUESTING PROVIDER: Marely Singh M.D. FINDINGS The patient was monitored for 12 days and 9 hours. The predominant underlying rhythm was sinus rhythm, average heart rate 84 beats per minute, range 62 to 123 beats per minute. There was rare ectopy. There were 4 episodes of atrial fibrillation, average heart rate 143 beats per minute, range 93 to 177 beats per minute. The longest episode lasted 5 hours and 7 minutes with an average heart rate of 143 beats per minute. There were no pauses greater than 3 seconds. There was no higher degree heart block. There were 29 patient events. One episode correlated with PVCs. Two episodes correlated with PACs. Two episodes correlated with atrial fibrillation with heart rates between 125 and 160 beats per minute. All other events did not correlate with arrhythmias. FINAL INTEPRETATION Paroxysmal atrial fibrillation with over all poorly controlled ventricular response, symptomatic. Nima Dobson M.D. EMILIE/wen T - 11/07/2018
== END 2018-10-19 03:27 ==
PROVIDERS: PCP Family Medicine; Visit Provider Family Medicine
DX: R00.2 Palpitations (principal); I48.0 Paroxysmal atrial fibrillation
CPT/HCPCS: 0296T

== ENCOUNTER 2018-11-07 08:17 | Outpatient (CLI) | payer MEDICARE, BC, SELFPAY | END 2018-11-07 08:37 | PROVIDERS: PCP Family Medicine; Referring Provider Family Medicine; Visit Provider Student in an Organized Health Care Education/Training Program | DX: R00.2 Palpitations (principal); I48.0 Paroxysmal atrial fibrillation | CPT/HCPCS: 0298T ==

== ENCOUNTER 2018-11-20 15:35 | Inpatient (IN) | payer MEDICARE, BC, SELFPAY ==
[2018-11-20] VITALS (14 sets, daily range): BP systolic 107–135; BP diastolic 54–116; PULSE 68–86; RESP 15–16; TEMP 36.7; O2SAT 94–97
--- NOTE | 2018-11-20 15:43 | DI.RAD_ITS ---
SYMPTOM/DIAGNOSIS: FELL, PAIN RIGHT HIP AND PELVIS: There is a comminuted intertrochanteric fracture of the right femur. The lesser trochanteric fracture fragment is mildly displaced. Overall there is mild to moderate displacement of the fracture noted. The right femoral head is seated within the acetabulum. No other fracture or dislocation is seen. IMPRESSION: Comminuted, mild to moderately displaced intertrochanteric fracture of the right femur.
--- NOTE | 2018-11-20 15:43 | W.ED.GENAD ---
Discharge Plan Disposition Patient Disposition: [facility] INPATIENT Condition: Fair Discharge Details Chief Complaint: Orthopedic Clinical Impression: Closed hip fracture Admit Date/Time: 11/20/18 19:22 Admit Provider: Elias Pichardo Attending Provider: Elias Pichardo Primary Care Provider: Marely Singh ED Provider: Farheen Askew Medical Decision Making Patient is a 73 year old female, brought in via EMS and accompanied by , with c/c of right hip pain after fall. She reports that she was getting into the car when she slipped on wet pavement and fell directly onto the right hip. Denies other injury at the time of the incident. No head trauma, no LOC, denies JUAREZ. Has had multiple surgeries on the knee after trauma several years ago, no previous surgeries to hip. Denies paresthesias, no pain distal to the hip injury. She denies any recent illness. Medical history includes JUAREZ, right sided sciatica, UTI, GERD, osteopenia, asthma, IBS, impaired renal function, hypothyroidism, high cholesterol, bipolar, OA. States that she was recently diagnosed with a fast arrythmia and started on apixaban. On exam, she is in a position of comfort with the right hip adducted across the left, difficult to tell with her position if the hip is malrotated or shortened. Good pedal pulses, no deformity noted on exam. Lungs clear, HR regular. Plan to treat her pain and obtain XR of right hip. XR concerning for fracture, will obtain chest xr and discuss with orthopedics Consulted with Dr. Benítez. He has advised block by INSTALLATION TECH. Patient will be medical admit, will consult with hospitalist. He advised surgery likely as she is currently anticoagulated on apixaban. Spoke with patient who is in agreement with this plan. EKG reviewed by Dr. Gregory, at this time, patient not in atrial flutter. No acute ischemic changes noted. INSTALLATION TECH evaluated patient, feels she is appropriate for surgical intervention at our facility. Has discussed risks/benefits and preformed block. Consulted with Dr. Pichardo who agrees to admission for right hip fracture. HPI General Mode of arrival: EMS. Date/Time Provider Initiated Documentation: 11/20/18 15:42. Limitations to Documentation: no limitations. Information obtained by: patient, family (accompanied by ) and RN notes reviewed. History of Present Illness 73 year old F presents to the emergency department with the chief complaint of right hip pain after fall, described as moderate, with intensity rated at 7. Quality is described as stabbing, and is localized to the right and lower extremity. Patient reports no radiation. Patient started experiencing this minute(s) and it has been constant. Immobilization improves symptom(s), Movement worsens symptoms . Patient notes denies confusion, chest pain, cough, fever/chills, headaches, nausea/vomiting, rash, shortness of breath, syncope and weakness. Patient did receive the following treatments prior to arrival, none Related Data Home Medications Medication Instructions Recorded Confirmed acetaminophen [Tylenol Extra 2 tab PO Q4H PRN PRN tab-cap 11/19/12 11/20/18 Strength] calcium carbonate-vitamin D3 2 tab PO BID 11/19/12 11/20/18 [Caltrate with Vitamin D3] duloxetine [Cymbalta] 1 cap PO DAILY #90 tab-cap 11/19/12 11/20/18 fluticasone propion-salmeterol 1 puff INHALATION BID #3 puff 11/19/12 11/20/18 [Advair Diskus] multivitamin 1 tab PO DAILY 11/19/12 11/20/18 ondansetron HCl 4 mg PO Q8H PRN #90 tab-cap 02/11/15 11/20/18 albuterol sulfate [ProAir HFA] 2 puff INHALATION Q4H PRN #1 01/20/16 11/20/18 canister estradiol [Estrace] 2 g VG twice weekly #2 tube 05/26/17 11/20/18 triamcinolone acetonide 15 gm TOPICAL DAILY PRN #15 gm 09/05/17 11/20/18 cyclobenzaprine 10 mg PO HS PRN #7 tab-cap 12/12/17 11/20/18 bupropion HCl 300 mg PO DAILY #1 tab-cap 02/20/18 11/20/18 cranberry [id number] coag 2 ea PO TID 02/20/18 11/20/18 [Cranberry Tablet] lutein 20 mg PO DAILY 02/20/18 11/20/18 melatonin 15 mg PO HS 02/20/18 11/20/18 dexlansoprazole [Dexilant] 60 mg PO DAILY #90 tab-cap 03/12/18 11/20/18 fluticasone propionate 50 1 spray NS BID PRN #1 bottle 06/19/18 11/20/18 mcg/actuation nasal spray,suspension linaclotide 145 mcg capsule 290 mcg PO DAILY cap 06/29/18 11/20/18 acyclovir 15 gm TOPICAL as directed PRN 07/25/18 11/20/18 azelastine 2 spry NS BID PRN 07/25/18 11/20/18 gabapentin 600 mg PO HS 07/25/18 11/20/18 gabapentin [Neurontin] 300 cap PO QAM 07/25/18 11/20/18 atorvastatin 20 mg tablet 20 mg PO DAILY #90 tab-cap 08/25/18 11/20/18 apixaban 5 mg tablet 5 mg PO BID #60 tab 11/12/18 11/20/18 levothyroxine 125 mcg tablet 125 mcg PO DAILY #90 tab-cap 11/12/18 11/20/18 Previous Rx's Medication Instructions Recorded estradiol [Estrace] 2 g VG twice weekly #2 tube 05/26/17 bupropion HCl 300 mg PO DAILY #1 tab-cap 02/20/18 dexlansoprazole [Dexilant] 60 mg PO DAILY #90 tab-cap 03/12/18 fluticasone propionate 50 1 spray NS BID PRN #1 bottle 06/19/18 mcg/actuation nasal spray,suspension atorvastatin 20 mg tablet 20 mg PO DAILY #90 tab-cap 08/25/18 apixaban 5 mg tablet 5 mg PO BID #60 tab 11/12/18 levothyroxine 125 mcg tablet 125 mcg PO DAILY #90 tab-cap 11/12/18 Allergies Allergy/AdvReac Type Severity Reaction Status Date / Time sulfamethoxazole Allergy Severe throat Verified 11/12/18 15:15 [From Bactrim] swelling, difficulty breathing trimethoprim [From Bactrim] Allergy Severe throat Verified 11/12/18 15:15 swelling, difficulty breathing Penicillins Allergy Intermediate Hives, Verified 11/12/18 15:15 tongue swells ibuprofen Allergy Mild Verified 11/12/18 15:15 clarithromycin AdvReac Intermediate slurred Verified 11/12/18 15:15 speech, confusion, balance problems General Stated Complaint: Orthopedic NADIA: 3 Review of Systems Constitutional Reports as per HPI, Denies chills, Denies fever(s), Denies headache(s) and Denies weakness ENT Denies headache(s) and Denies neck pain Cardiovascular Reports as per HPI, Denies chest pain, Denies pedal edema, Reports palpitations (recent dx of arrhythmia with holter monitor), Denies dyspnea and Denies dyspnea on exertion Respiratory Reports as per HPI, Denies cough, Denies dyspnea and Denies dyspnea on exertion Gastrointestinal Denies abdominal pain, Denies change in bowel habits, Denies nausea and Denies vomiting Musculoskeletal Reports as per HPI, Denies neck pain, Denies numbness, Denies radiating pain into limb and Denies tingling Integumentary/Breasts Reports as per HPI, Denies rash and Denies wounds Neurologic Reports as per HPI, Denies headache(s), Denies numbness, Denies tingling, Denies paresthesias and Denies weakness Endocrine Reports palpitations (recent dx of arrhythmia with holter monitor) [facility] Medical History Tension type headache (Chronic) Stress due to illness of family member (Chronic 09/20/16) Right-sided low back pain without sciatica (Chronic 05/12/15) Recurrent UTI (Chronic 09/11/15) Polyp of colon (Chronic 03/16/10) Peptic reflux disease (Chronic) Pelvic floor dysfunction (Chronic 09/18/17) Osteopenia (Chronic) 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) Mild intermittent asthma with acute exacerbation (Chronic 07/07/15) Microscopic hematuria (Chronic 09/11/15) Low back pain (Chronic 07/29/08) Irritable bowel syndrome with constipation (Chronic 09/18/17) Impaired renal function disorder (Chronic 09/12/12) Idiopathic peripheral neuropathy (Chronic) Hypothyroidism (Chronic 06/10/08) Hypercholesterolemia (Chronic) Hoarseness (Chronic 12/25/14) 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) Gastroparesis (Chronic) Endometrial polyp (Chronic 04/14/16) Endometrial mass (Chronic 03/07/16) Cough (Chronic) Congestion of both ears (Chronic 01/24/18) Chronic sinusitis (Chronic 02/25/13) Bloating (Chronic 09/18/17) Bipolar disorder (Chronic) Arthritis (Chronic) Alcohol abuse (Resolved) Closed fracture of lower leg (Resolved) Diarrhea (Resolved 02/20/18) Goiter (Resolved) Labial burning (Resolved 06/30/15) Nuclear sclerotic cataract of left eye (Resolved) Nuclear sclerotic cataract of right eye (Resolved) Pelvic pain in female (Resolved 03/01/16) Pneumonia, organism unspecified (Resolved) Posterior subcapsular age-related cataract of left eye (Resolved) Posterior subcapsular age-related cataract, right eye (Resolved) Surgical History Status post cataract extraction and insertion of intraocular lens of left eye (Chronic 08/10/18) Status post cataract extraction and insertion of intraocular lens of right eye (Chronic 07/27/18) H/O esophagogastroduodenoscopy (Resolved) H/O shoulder replacement (Resolved) Colonoscopy - MAC Dilation and curettage (03/31/16) EGD - MAC (05/15/14) Hysteroscopy (03/31/16) SHOULDER REPLACEMENT Social History Smoking/Tobacco Use Status: Former Tobacco Use Alcohol Intake: former Drug use: Never Substance use type: does not use Details: quit smoking 30 yrs ago Do you feel safe at home: Yes Do you feel safe in your relationship?: Yes Exam Const General: cooperative, healthy appearing, comfortable, no acute distress, well developed and well groomed Nutritional Appearance: average body habitus and well nourished Orientation: alert and awake Resp Effort & Inspection: normal respiratory effort, able to speak in complete sentences and no respiratory distress Auscultation: clear to auscultation bilaterally Cardio Rate: regular rate Rhythm: regular rhythm Heart Sounds: S1 normal and S2 normal GI Inspection: normal to inspection and non-distended Palpation: not firm, no guarding, not rigid and nontender Percussion: normal to percussion Auscultation: normal bowel sounds Skin General skin exam: no rashes or lesions noted Lesions: no lesions Rashes: no rashes Trauma: no lacerations or abrasions Neuro General: alert and awake Cognition: normal cognition Speech: speech normal Gait: normal gait Motor: muscle tone normal throughout Sensory Exam: no sensory deficits noted Extrem General: abnormal to inspection (patient holding right hip adducted across body), abnormal ROM (unwilling to move right hip at this time, full ROM in RLE otherwise), normal capillary refill, no joint enlargement, no clubbing, cyanosis or edema, no pedal edema, no calf tenderness and abnormal gait (has not ambulated since fall) Psych Appearance: grossly normal and well kempt Mental Status: mental status grossly normal Speech and Movement: speech and movement normal Course Vital Signs Pulse 86 11/20/18 15:36 Respiratory Rate 16 11/20/18 15:36 Blood Pressure 135/116 H 11/20/18 15:36 Pulse Oximetry 95 11/20/18 15:36 Pulse 86 11/20/18 15:36 Respiratory Rate 16 11/20/18 15:36 Blood Pressure 135/116 H 11/20/18 15:36 Blood Pressure Position Sitting 11/20/18 15:36 Pulse Oximetry 95 11/20/18 15:36 Oxygen Delivery Method Room Air 11/20/18 15:36 Oxygen Flow Rate 0 11/20/18 15:36 Pain Level 7 11/20/18 15:36
--- NOTE | 2018-11-20 15:57 | ED.GENADUL_ITS ---
Discharge Plan Disposition Patient Disposition: [facility] INPATIENT Condition: Fair Discharge Details Chief Complaint: Orthopedic Clinical Impression: Closed hip fracture Admit Date/Time: 11/20/18 19:22 Admit Provider: Elias Pichardo Attending Provider: Elias Pichardo Primary Care Provider: Marely Singh ED Provider: Farheen Askew Medical Decision Making Patient is a 73 year old female, brought in via EMS and accompanied by , with c/c of right hip pain after fall. She reports that she was getting into the car when she slipped on wet pavement and fell directly onto the right hip. Denies other injury at the time of the incident. No head trauma, no LOC, denies JUAREZ. Has had multiple surgeries on the knee after trauma several years ago, no previous surgeries to hip. Denies paresthesias, no pain distal to the hip injury. She denies any recent illness. Medical history includes JUAREZ, right sided sciatica, UTI, GERD, osteopenia, asthma, IBS, impaired renal function, hypothyroidism, high cholesterol, bipolar, OA. States that she was recently diagnosed with a fast arrythmia and started on apixaban. On exam, she is in a position of comfort with the right hip adducted across the left, difficult to tell with her position if the hip is malrotated or shortened. Good pedal pulses, no deformity noted on exam. Lungs clear, HR regular. Plan to treat her pain and obtain XR of right hip. XR concerning for fracture, will obtain chest xr and discuss with orthopedics Consulted with Dr. Benítez. He has advised block by [employer]. Patient will be medical admit, will consult with hospitalist. He advised surgery likely as she is currently anticoagulated on apixaban. Spoke with patient who is in agreement with this plan. EKG reviewed by Dr. Gregory, at this time, patient not in atrial flutter. No acute ischemic changes noted. [employer] evaluated patient, feels she is appropriate for surgical intervention at our facility. Has discussed risks/benefits and preformed block. Consulted with Dr. Pichardo who agrees to admission for right hip fracture. HPI General Mode of arrival: EMS . Date/Time Provider Initiated Documentation: 11/20/18 15:42 . Limitations to Documentation: no limitations . Information obtained by: patient, family (accompanied by ) and RN notes reviewed . History of Present Illness 73 year old F presents to the emergency department with the chief complaint of right hip pain after fall, described as moderate, with intensity rated at 7. Quality is described as stabbing, and is localized to the right and lower extremity. Patient reports no radiation. Patient started experiencing this minute(s) and it has been constant. Immobilization improves symptom(s), Movement worsens symptoms . Patient notes denies confusion, chest pain, cough, fever/chills, headaches, nausea/vomiting, rash, shortness of breath, syncope and weakness. Patient did receive the following treatments prior to arrival, none Related Data Home Medications Medication Instructions Recorded Confirmed acetaminophen [Tylenol Extra 2 tab PO Q4H PRN PRN tab-cap 11/19/12 11/20/18 Strength] calcium carbonate-vitamin D3 2 tab PO BID 11/19/12 11/20/18 [Caltrate with Vitamin D3] duloxetine [Cymbalta] 1 cap PO DAILY #90 tab-cap 11/19/12 11/20/18 fluticasone propion-salmeterol 1 puff INHALATION BID #3 puff 11/19/12 11/20/18 [Advair Diskus] multivitamin 1 tab PO DAILY 11/19/12 11/20/18 ondansetron HCl 4 mg PO Q8H PRN #90 tab-cap 02/11/15 11/20/18 albuterol sulfate [ProAir HFA] 2 puff INHALATION Q4H PRN #1 01/20/16 11/20/18 canister estradiol [Estrace] 2 g VG twice weekly #2 tube 05/26/17 11/20/18 triamcinolone acetonide 15 gm TOPICAL DAILY PRN #15 gm 09/05/17 11/20/18 cyclobenzaprine 10 mg PO HS PRN #7 tab-cap 12/12/17 11/20/18 bupropion HCl 300 mg PO DAILY #1 tab-cap 02/20/18 11/20/18 cranberry [id number] coag 2 ea PO TID 02/20/18 11/20/18 [Cranberry Tablet] lutein 20 mg PO DAILY 02/20/18 11/20/18 melatonin 15 mg PO HS 02/20/18 11/20/18 dexlansoprazole [Dexilant] 60 mg PO DAILY #90 tab-cap 03/12/18 11/20/18 fluticasone propionate 50 1 spray NS BID PRN #1 bottle 06/19/18 11/20/18 mcg/actuation nasal spray,suspension linaclotide 145 mcg capsule 290 mcg PO DAILY cap 06/29/18 11/20/18 acyclovir 15 gm TOPICAL as directed PRN 07/25/18 11/20/18 azelastine 2 spry NS BID PRN 07/25/18 11/20/18 gabapentin 600 mg PO HS 07/25/18 11/20/18 gabapentin [Neurontin] 300 cap PO QAM 07/25/18 11/20/18 atorvastatin 20 mg tablet 20 mg PO DAILY #90 tab-cap 08/25/18 11/20/18 apixaban 5 mg tablet 5 mg PO BID #60 tab 11/12/18 11/20/18 levothyroxine 125 mcg tablet 125 mcg PO DAILY #90 tab-cap 11/12/18 11/20/18 Previous Rx's Medication Instructions Recorded estradiol [Estrace] 2 g VG twice weekly #2 tube 05/26/17 bupropion HCl 300 mg PO DAILY #1 tab-cap 02/20/18 dexlansoprazole [Dexilant] 60 mg PO DAILY #90 tab-cap 03/12/18 fluticasone propionate 50 1 spray NS BID PRN #1 bottle 06/19/18 mcg/actuation nasal spray,suspension atorvastatin 20 mg tablet 20 mg PO DAILY #90 tab-cap 08/25/18 apixaban 5 mg tablet 5 mg PO BID #60 tab 11/12/18 levothyroxine 125 mcg tablet 125 mcg PO DAILY #90 tab-cap 11/12/18 Allergies Allergy/AdvReac Type Severity Reaction Status Date / Time sulfamethoxazole Allergy Severe throat Verified 11/12/18 15:15 [From Bactrim] swelling, difficulty breathing trimethoprim [From Bactrim] Allergy Severe throat Verified 11/12/18 15:15 swelling, difficulty breathing Penicillins Allergy Intermediate Hives, Verified 11/12/18 15:15 tongue swells ibuprofen Allergy Mild Verified 11/12/18 15:15 clarithromycin AdvReac Intermediate slurred Verified 11/12/18 15:15 speech, confusion, balance problems General Stated Complaint: Orthopedic NADIA: 3 Review of Systems Constitutional Reports as per HPI, Denies chills, Denies fever(s), Denies headache(s) and Denies weakness ENT Denies headache(s) and Denies neck pain Cardiovascular Reports as per HPI, Denies chest pain, Denies pedal edema, Reports palpitations (recent dx of arrhythmia with holter monitor), Denies dyspnea and Denies dyspnea on exertion Respiratory Reports as per HPI, Denies cough, Denies dyspnea and Denies dyspnea on exertion Gastrointestinal Denies abdominal pain, Denies change in bowel habits, Denies nausea and Denies vomiting Musculoskeletal Reports as per HPI, Denies neck pain, Denies numbness, Denies radiating pain into limb and Denies tingling Integumentary/Breasts Reports as per HPI, Denies rash and Denies wounds Neurologic Reports as per HPI, Denies headache(s), Denies numbness, Denies tingling, Denies paresthesias and Denies weakness Endocrine Reports palpitations (recent dx of arrhythmia with holter monitor) [facility] Medical History Tension type headache (Chronic) Stress due to illness of family member (Chronic 09/20/16) Right-sided low back pain without sciatica (Chronic 05/12/15) Recurrent UTI (Chronic 09/11/15) Polyp of colon (Chronic 03/16/10) Peptic reflux disease (Chronic) Pelvic floor dysfunction (Chronic 09/18/17) Osteopenia (Chronic) 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) Mild intermittent asthma with acute exacerbation (Chronic 07/07/15) Microscopic hematuria (Chronic 09/11/15) Low back pain (Chronic 07/29/08) Irritable bowel syndrome with constipation (Chronic 09/18/17) Impaired renal function disorder (Chronic 09/12/12) Idiopathic peripheral neuropathy (Chronic) Hypothyroidism (Chronic 06/10/08) Hypercholesterolemia (Chronic) Hoarseness (Chronic 12/25/14) 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) Gastroparesis (Chronic) Endometrial polyp (Chronic 04/14/16) Endometrial mass (Chronic 03/07/16) Cough (Chronic) Congestion of both ears (Chronic 01/24/18) Chronic sinusitis (Chronic 02/25/13) Bloating (Chronic 09/18/17) Bipolar disorder (Chronic) Arthritis (Chronic) Alcohol abuse (Resolved) Closed fracture of lower leg (Resolved) Diarrhea (Resolved 02/20/18) Goiter (Resolved) Labial burning (Resolved 06/30/15) Nuclear sclerotic cataract of left eye (Resolved) Nuclear sclerotic cataract of right eye (Resolved) Pelvic pain in female (Resolved 03/01/16) Pneumonia, organism unspecified (Resolved) Posterior subcapsular age-related cataract of left eye (Resolved) Posterior subcapsular age-related cataract, right eye (Resolved) Surgical History Status post cataract extraction and insertion of intraocular lens of left eye (Chronic 08/10/18) Status post cataract extraction and insertion of intraocular lens of right eye (Chronic 07/27/18) H/O esophagogastroduodenoscopy (Resolved) H/O shoulder replacement (Resolved) Colonoscopy - MAC Dilation and curettage (03/31/16) EGD - MAC (05/15/14) Hysteroscopy (03/31/16) SHOULDER REPLACEMENT Social History Smoking/Tobacco Use Status: Former Tobacco Use Alcohol Intake: former Drug use: Never Substance use type: does not use Details: quit smoking 30 yrs ago Do you feel safe at home: Yes Do you feel safe in your relationship?: Yes Exam Const General: cooperative, healthy appearing, comfortable, no acute distress, well developed and well groomed Nutritional Appearance: average body habitus and well nourished Orientation: alert and awake Resp Effort & Inspection: normal respiratory effort, able to speak in complete sentences and no respiratory distress Auscultation: clear to auscultation bilaterally Cardio Rate: regular rate Rhythm: regular rhythm Heart Sounds: S1 normal and S2 normal GI Inspection: normal to inspection and non-distended Palpation: not firm, no guarding, not rigid and nontender Percussion: normal to percussion Auscultation: normal bowel sounds Skin General skin exam: no rashes or lesions noted Lesions: no lesions Rashes: no rashes Trauma: no lacerations or abrasions Neuro General: alert and awake Cognition: normal cognition Speech: speech normal Gait: normal gait Motor: muscle tone normal throughout Sensory Exam: no sensory deficits noted Extrem General: abnormal to inspection (patient holding right hip adducted across body), abnormal ROM (unwilling to move right hip at this time, full ROM in RLE otherwise), normal capillary refill, no joint enlargement, no clubbing, cyanosis or edema, no pedal edema, no calf tenderness and abnormal gait (has not ambulated since fall) Psych Appearance: grossly normal and well kempt Mental Status: mental status grossly normal Speech and Movement: speech and movement normal Course Vital Signs Pulse 86 11/20/18 15:36 Respiratory Rate 16 11/20/18 15:36 Blood Pressure 135/116 H 11/20/18 15:36 Pulse Oximetry 95 11/20/18 15:36 Pulse 86 11/20/18 15:36 Respiratory Rate 16 11/20/18 15:36 Blood Pressure 135/116 H 11/20/18 15:36 Blood Pressure Position Sitting 11/20/18 15:36 Pulse Oximetry 95 11/20/18 15:36 Oxygen Delivery Method Room Air 11/20/18 15:36 Oxygen Flow Rate 0 11/20/18 15:36 Pain Level 7 11/20/18 15:36
--- NOTE | 2018-11-20 17:28 | DI.RAD_ITS ---
SYMPTOM/DIAGNOSIS: HIP FX PORTABLE AP CHEST: Comparison is made with 12/01/17. Heart size and pulmonary vasculature are within normal limits. The lungs are clear. No effusions or pneumothoraces are identified. There are again seen post surgical changes of a prosthesis in the left humerus. IMPRESSION: No acute pulmonary process.
[2018-11-20 17:46] LABS: Abs Immature Grans 0.01 k/cumm (0.0-0.09); Absolute Basophil Count 0.04 k/cumm (0.0-0.2); Absolute Eosinophil Count 0.15 k/cumm (0.0-0.7); Absolute Lymphocyte Count 1.29 k/cumm (1.2-3.4); Absolute Monocyte Count 0.53 k/cumm (0.11-0.7); Basophils % 0.7; Eosinophils % 2.5; HGB 12.9 g/dL (12.0-15.5); Immature Grans % 0.2; Lymphocytes % 21.1; Mean Corp. HGB Concentration 33.1 g/dL (32.0-36.0); Mean Corpuscular Hemoglobin 32.5 pg (27.0-33.0); Mean Corpuscular Volume 98.2 fL (80-95); Mean Platelet Volume 11.2 fL (8.0-11.0); Monocytes % 8.7; Neutrophils % 66.8; Platelet Count 224 x1000/uL (130-400); RBC 3.97 m/cumm (4.00-5.20); RBC Distribution Width 12.5 % (11.7-14.6); White Blood Cell Count 6.12 k/cumm (4.4-10.8)
--- NOTE | 2018-11-20 17:50 | DI.VRAD_ITS ---
EXAM: XR Right Hip with Pelvis when Performed, 2 or 3 Views EXAM DATE/TIME: 11/20/2018 3:45 PM CLINICAL HISTORY: 73 years old, female; Signs and symptoms; Other: Fall, pain lateral TECHNIQUE: Imaging protocol: XR Right hip with pelvis when performed, 2 or 3 views COMPARISON: US PELVIS TRANSVAG 03/07/2016 3:33 PM FINDINGS: Bones/joints: There is a right comminuted intertrochanteric fracture present with the lesser trochanter as a separate fracture fragment. The fracture is mild to moderately displaced. Soft tissues: Normal. IMPRESSION: Comminuted right intertrochanteric femur fracture with the lesser trochanter as a separate fracture fragment. Dictated and Authenticated by: Clark Narvaez MD. Ordering:SUKH Zhong MD
[2018-11-20 17:57] LABS: ALT 24 U/L (12-78); AST 15 U/L (15-37); Albumin 3.9 g/dL (3.4-5.0); Alkaline Phosphatase 96 U/L (46-116); Anion Gap 11.3 mmol/L (3-11); BUN 20 mg/dL (7-18); Bilirubin, Total 0.3 mg/dL (0.2-1.0); CO2 25.7 mmol/L (21.0-32.0); CREATININE 1.14 mg/dL (0.55-1.02); Calcium 9.1 mg/dL (8.5-10.1); Chloride 102 mmol/L (98-107); Estimated GFR 46.85 (mL/min/1.73m2); Glucose 103 mg/dL (70-100); Potassium 3.6 mmol/L (3.5-5.1); Sodium 139 mmol/L (136-145); Total Protein 7.1 g/dL (6.4-8.2)
[2018-11-20 17:59] LABS: PTT Activated 24.5 sec (21.0-31.4); Prothrombin Time 9.6 sec (9.3-11.0)
[2018-11-20 18:01] LABS: Troponin I < 0.02 ng/mL (0.00-0.06)
[2018-11-20] MEDS: Bupivacaine 0.25% Pres-Free 30 ML VIAL (18:55)
[2018-11-20] MEDS: Bupivacaine LIPOSOME/PF 133 MG/10 ML VIAL IJ (18:55)
--- NOTE | 2018-11-20 18:59 | NUR.NOTE ---
Nursing Note: Assisted anesthesia with this a hip block. Patient tolerated it well.
--- NOTE | 2018-11-20 19:10 | W.PM.HP.N ---
Date of service: 11/20/18 Time of Service: 19:10 Assessment and Plan (1) Hip fracture: Current visit: Yes Status: Acute Hip fracture. No active medical issues except need to hold Eliquis. CXR negative and EKG, nonspecific TW flattening, is unchanged from baseline. Will continue usual medications as is for now (except NOAC). patient also requests Bettencourt. History of Present Illness Chief Complaint: hip fracture Narrative: 73 female witth h/o atrial flutter, on Eliquis, had mechanical fall today landing on concrete on right hip. Here with immediate pain, found to have hip fracture. Becuase of NOAC surgery will be delayed by 48 hours. Admitted for further management. Note in ER received regional block for pain. 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) Mild intermittent asthma with acute exacerbation (Chronic 07/07/15) Microscopic hematuria (Chronic 09/11/15) Low back pain (Chronic 07/29/08) Irritable bowel syndrome with constipation (Chronic 09/18/17) Impaired renal function disorder (Chronic 09/12/12) Idiopathic peripheral neuropathy (Chronic) Hypothyroidism (Chronic 06/10/08) Hypercholesterolemia (Chronic) Hoarseness (Chronic 12/25/14) 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) Gastroparesis (Chronic) Endometrial polyp (Chronic 04/14/16) Endometrial mass (Chronic 03/07/16) Cough (Chronic) Congestion of both ears (Chronic 01/24/18) Chronic sinusitis (Chronic 02/25/13) Bloating (Chronic 09/18/17) Bipolar disorder (Chronic) Arthritis (Chronic) Alcohol abuse (Resolved) Closed fracture of lower leg (Resolved) Diarrhea (Resolved 02/20/18) Goiter (Resolved) Labial burning (Resolved 06/30/15) Nuclear sclerotic cataract of left eye (Resolved) Nuclear sclerotic cataract of right eye (Resolved) Pelvic pain in female (Resolved 03/01/16) Pneumonia, organism unspecified (Resolved) Posterior subcapsular age-related cataract of left eye (Resolved) Posterior subcapsular age-related cataract, right eye (Resolved) Surgical History Status post cataract extraction and insertion of intraocular lens of left eye (Chronic 08/10/18) Status post cataract extraction and insertion of intraocular lens of right eye (Chronic 07/27/18) H/O esophagogastroduodenoscopy (Resolved) H/O shoulder replacement (Resolved) Colonoscopy - MAC Dilation and curettage (03/31/16) EGD - MAC (05/15/14) Hysteroscopy (03/31/16) SHOULDER REPLACEMENT Social History Smoking/Tobacco Use Status: Former Tobacco Use Alcohol Intake: former Drug use: Never Substance use type: does not use Details: quit smoking 30 yrs ago Do you feel safe at home: Yes Do you feel safe in your relationship?: Yes Meds Home Medications Medication Instructions Recorded Confirmed Type acetaminophen [Tylenol Extra 2 tab PO Q4H PRN PRN tab-cap 11/19/12 11/20/18 History Strength] calcium carbonate-vitamin D3 2 tab PO BID 11/19/12 11/20/18 History [Caltrate with Vitamin D3] duloxetine [Cymbalta] 1 cap PO DAILY #90 tab-cap 11/19/12 11/20/18 History fluticasone propion-salmeterol 1 puff INHALATION BID #3 puff 11/19/12 11/20/18 History [Advair Diskus] multivitamin 1 tab PO DAILY 11/19/12 11/20/18 History ondansetron HCl 4 mg PO Q8H PRN #90 tab-cap 02/11/15 11/20/18 History albuterol sulfate [ProAir HFA] 2 puff INHALATION Q4H PRN #1 01/20/16 11/20/18 History canister estradiol [Estrace] 2 g VG twice weekly #2 tube 05/26/17 11/20/18 Rx triamcinolone acetonide 15 gm TOPICAL DAILY PRN #15 gm 09/05/17 11/20/18 History cyclobenzaprine 10 mg PO HS PRN #7 tab-cap 12/12/17 11/20/18 History bupropion HCl 300 mg PO DAILY #1 tab-cap 02/20/18 11/20/18 Rx cranberry [id number] coag 2 ea PO TID 02/20/18 11/20/18 History [Cranberry Tablet] lutein 20 mg PO DAILY 02/20/18 11/20/18 History melatonin 15 mg PO HS 02/20/18 11/20/18 History dexlansoprazole [Dexilant] 60 mg PO DAILY #90 tab-cap 03/12/18 11/20/18 Rx fluticasone propionate 50 1 spray NS BID PRN #1 bottle 06/19/18 11/20/18 Rx mcg/actuation nasal spray,suspension linaclotide 145 mcg capsule 290 mcg PO DAILY cap 06/29/18 11/20/18 History acyclovir 15 gm TOPICAL as directed PRN 07/25/18 11/20/18 History azelastine 2 spry NS BID PRN 07/25/18 11/20/18 History gabapentin 600 mg PO HS 07/25/18 11/20/18 History gabapentin [Neurontin] 300 cap PO QAM 07/25/18 11/20/18 History atorvastatin 20 mg tablet 20 mg PO DAILY #90 tab-cap 08/25/18 11/20/18 Rx apixaban 5 mg tablet 5 mg PO BID #60 tab 11/12/18 11/20/18 Rx levothyroxine 125 mcg tablet 125 mcg PO DAILY #90 tab-cap 11/12/18 11/20/18 Rx Allergies Allergy/AdvReac Type Severity Reaction Status Date / Time sulfamethoxazole Allergy Severe throat Verified 11/12/18 15:15 [From Bactrim] swelling, difficulty breathing trimethoprim [From Bactrim] Allergy Severe throat Verified 11/12/18 15:15 swelling, difficulty breathing Penicillins Allergy Intermediate Hives, Verified 11/12/18 15:15 tongue swells ibuprofen Allergy Mild Verified 11/12/18 15:15 clarithromycin AdvReac Intermediate slurred Verified 11/12/18 15:15 speech, confusion, balance problems Exam Narrative Exam Narrative: 114/69 on monitor, 86, 16, 37.1. HEENT unremarkable; neck supple; lungs clear; heart RRR; abdomen soft nontender; extremities: RLE everted and foreshortened, pedal pulses intact Results Labs : 11/20/18 16:00 11/20/18 16:00 Laboratory Results - last 24 hr 11/20/18 11/20/18 11/20/18 16:00 16:00 16:00 WBC 6.12 RBC 3.97 L Hgb 12.9 Hct 39.0 MCV 98.2 H MCH 32.5 MCHC 33.1 RDW 12.5 Plt Count 224 MPV 11.2 H Immature Gran % 0.2 Neutrophils % 66.8 Lymphocytes % 21.1 Monocytes % 8.7 Eosinophils % 2.5 Basophils % 0.7 Absolute Neutrophils 4.10 Absolute Lymphocytes 1.29 Absolute Monocytes 0.53 Absolute Eosinophils 0.15 Absolute Basophils 0.04 PT 9.6 INR 1.0 APTT 24.5 Sodium 139 Potassium 3.6 Chloride 102 Carbon Dioxide 25.7 Anion Gap 11.3 H BUN 20 H Creatinine 1.14 H Estimated GFR/1.73 m2 46.85 Glucose 103 H Calcium 9.1 Total Bilirubin 0.3 AST 15 ALT 24 Alkaline Phosphatase 96 Troponin I Total Protein 7.1 Albumin 3.9 Patient ABO/Rh Antibody Screen 11/20/18 11/20/18 16:00 16:00 WBC RBC Hgb Hct MCV MCH MCHC RDW Plt Count MPV Immature Gran % Neutrophils % Lymphocytes % Monocytes % Eosinophils % Basophils % Absolute Neutrophils Absolute Lymphocytes Absolute Monocytes Absolute Eosinophils Absolute Basophils PT INR APTT Sodium Potassium Chloride Carbon Dioxide Anion Gap BUN Creatinine Estimated GFR/1.73 m2 Glucose Calcium Total Bilirubin AST ALT Alkaline Phosphatase Troponin I < 0.02 Total Protein Albumin Patient ABO/Rh O Positive Antibody Screen Negative Last Vital Signs Pulse 86 11/20/18 15:36 Resp 16 11/20/18 15:36 BP 135/116 H 11/20/18 15:36 Pulse Ox 95 11/20/18 15:36
[2018-11-20] MEDS: Cyclobenzaprine 10 MG TAB PO (20:51)
[2018-11-20] MEDS: Normal Saline Flush 10 ML SYR IVP (22:22)
[2018-11-20] MEDS: Melatonin 3 MG TAB 15 MG PO (22:23)
[2018-11-20] MEDS: Gabapentin 600 MG TAB PO (22:23)
[2018-11-21] VITALS (9 sets, daily range): BP systolic 103–126; BP diastolic 63–82; PULSE 75–90; RESP 14–18; TEMP 36.2–36.7; O2SAT 93–99
[2018-11-21] MEDS: Normal Saline Flush 10 ML SYR IVP ×3 (02:12→09:44)
[2018-11-21] MEDS: Levothyroxine 25 MCG TAB (05:59)
[2018-11-21] MEDS: Levothyroxine 100 MCG TAB (06:00)
--- NOTE | 2018-11-21 08:21 | INITIAL_ITS ---
- If Service Date Differs Date of service: 11/21/18 Time of Service: 08:15 Care Management Initial Assess REASON FOR HOSPITALIZATION:: Fractured right Hip PAST MEDICAL HISTORY/PAST SURGICAL HISTORY:: Tension type headache (Chronic). Stress due to illness of family member (Chronic 09/20/16). Right-sided low back pain without sciatica (Chronic 05/12/15). Recurrent UTI (Chronic 09/11/15). Polyp of colon (Chronic 03/16/10). Peptic reflux disease (Chronic). Pelvic floor dysfunction (Chronic 09/18/17). Osteopenia (Chronic). 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 Mild intermittent asthma with acute exacerbation (Chronic 07/07/15). Microscopic hematuria (Chronic 09/11/15). Low back pain (Chronic 07/29/08). Irritable bowel syndrome with constipation (Chronic 09/18/17). Impaired renal function disorder (Chronic 09/12/12). Idiopathic peripheral neuropathy (Chronic). Hypothyroidism (Chronic 06/10/08). Hypercholesterolemia (Chronic). Hoarseness (Chronic 12/25/14). 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). Gastroparesis (Chronic). Endometrial polyp (Chronic 04/14/16). Endometrial mass (Chronic 03/07/16). Cough (Chronic). Congestion of both ears (Chronic 01/24/18). Chronic sinusitis (Chronic 02/25/13). Bloating (Chronic 09/18/17). Bipolar disorder (Chronic). Arthritis (Chronic). Alcohol abuse (Resolved). Closed fracture of lower leg (Resolved). Diarrhea (Resolved 02/20/18). Goiter (Resolved). Labial burning (Resolved 06/30/15). Nuclear sclerotic cataract of left eye (Resolved). Nuclear sclerotic cataract of right eye (Resolved). Pelvic pain in female (Resolved 03/01/16). Pneumonia, organism unspecified (Resolved). Posterior subcapsular age-related cataract of left eye (Resolved). Posterior subcapsular age-related cataract, right eye (Resolved). Surgical History . Status post cataract extraction and insertion of intraocular lens of left eye (Chronic 08/10/18). Status post cataract extraction and insertion of intraocular lens of right eye (Chronic 07/27/18). H/O esophagogastroduodenoscopy (Resolved). H/O shoulder replacement (Resolved). Colonoscopy - MAC. Dilation and curettage (03/31/16). EGD - MAC (05/15/14). Hysteroscopy (03/31/16). SHOULDER REPLACEMENT PREVIOUS FUNCTIONAL STATUS/SOCIAL/FAMILY SUPPORTS:: Archana lives with her spouse Se in [place], [place] her home is on one floor. She has 4 grown children one son lives locally. She describes a supportive large family and support system. 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 She is indepedent at baseline with transportation, ADL's and meals. CURRENT FUNCTIONAL STATUS:: Archana makes good eye contact she is alert and engaged during assessment. She states that her pain is well controlled and she understan ds the plan for surgery in the morning. She feels that she will be able to return home post op and that she has a large support system. She does have a FWW at home CM encouraged her to have her spouse bring it in to be reviewed by PT. ADVANCE DIRECTIVES:: None on file she would like to complete prior to discharge Has patient been provided with information about the portal?: Yes Did the patient sign up for the portal?: No CODE STATUS:: Full Code INSURANCE COVERAGE / FINANCIAL ISSUES:: Medicare, BCBS CURRENT HOME/COMMUNITY SERVICES/EQUIPMENT:: FWW, Cane, Crutches and raised toilet seat. PRIMARY CARE PHYSICIAN:: POTENTIAL DISCHARGE NEEDS:: Follow up scheduled with provider prior to discharge, referral to home health PT and OT. PATIENT/FAMILY EDUCATION NEEDS:: Discharge education, limitations and follow up plan of care including ask me three and self management. ANTICIPATED BARRIERS TO DISCHARGE:: None identified. TRANSPORTATION:: Via private car with spouse at time of discharge. PLAN:: Archana will have surgery to repair right fractured hip on 11/22/18. She continues to receive pain control and IV fluids. PT/OT consult while inpatient. She will plan to transition home supports including home health PT and OT. CM will continue to provide support discharge planning.
[2018-11-21] MEDS: Acetaminophen 325 MG TAB 650 MG PO ×2 (08:55→15:04)
[2018-11-21] MEDS: oxyCODONE 5 MG TAB PO ×2 (08:55→12:53)
[2018-11-21] MEDS: Pantoprazole 40 MG TABCR PO (08:57)
[2018-11-21] MEDS: Gabapentin 300 MG CAP PO (08:57)
[2018-11-21] MEDS: DULoxetine 30 MG CAP 60 MG PO (08:57)
[2018-11-21] MEDS: Atorvastatin 20 MG TAB PO (08:57)
[2018-11-21] MEDS: buPROPion-XL 150 MG TABCR 300 MG PO (08:58)
[2018-11-21] MEDS: Budesonide/Formoterol 160/4.5 6 GM 60 PUFF INH IH ×2 (09:11→20:12)
[2018-11-21] MEDS: Ketorolac 15 MG/ML VIAL IVP (09:43)
[2018-11-21 10:25] LABS: Abs Immature Grans 0.01 k/cumm (0.0-0.09); Absolute Basophil Count 0.04 k/cumm (0.0-0.2); Absolute Eosinophil Count 0.26 k/cumm (0.0-0.7); Absolute Lymphocyte Count 0.61 k/cumm (1.2-3.4); Absolute Monocyte Count 0.65 k/cumm (0.11-0.7); Absolute Neutrophil Count 4.59 k/cumm (1.2-6.7); Basophils % 0.6; Eosinophils % 4.2; HCT 35.8 % (36.0-46.0); HGB 11.6 g/dL (12.0-15.5); Immature Grans % 0.2; Lymphocytes % 9.9; Mean Corp. HGB Concentration 32.4 g/dL (32.0-36.0); Mean Corpuscular Volume 98.6 fL (80-95); Mean Platelet Volume 10.2 fL (8.0-11.0); Monocytes % 10.6; Neutrophils % 74.5; Platelet Count 177 x1000/uL (130-400); RBC 3.63 m/cumm (4.00-5.20); RBC Distribution Width 12.6 % (11.7-14.6); White Blood Cell Count 6.16 k/cumm (4.4-10.8)
[2018-11-21 10:29] LABS: Anion Gap 8.7 mmol/L (3-11); BUN 15 mg/dL (7-18); CO2 27.3 mmol/L (21.0-32.0); CREATININE 1.16 mg/dL (0.55-1.02); Calcium 8.7 mg/dL (8.5-10.1); Chloride 99 mmol/L (98-107); Estimated GFR 45.92 (mL/min/1.73m2); Glucose 125 mg/dL (70-100); Potassium 3.7 mmol/L (3.5-5.1); Sodium 135 mmol/L (136-145)
--- NOTE | 2018-11-21 12:59 | W.ORTHOCONSU ---
Date of service: 11/21/18 Time of Service: 07:39 History of Present Illness Chief Complaint: Right Hip Pain Narrative: Lisseth is a 73-year-old who slipped yesterday on some wet leaves. She landed directly on her right side. She felt an immediate pop and pain. She noted deformity of the right leg. She was brought to the emergency department and diagnosed with a comminuted intertrochanteric hip fracture. She was previously seen in the emergency department a few months ago and diagnosed with a knee regular rhythm. She was monitored and diagnosed with atrial flutter. She was started on apixaban. Otherwise, she has been stable in regards to her health. No current chest pain, shortness of breath, palpitations. She has no significant swelling in bilateral lower extremities. She is otherwise active and ambulates independently in the community. She denies any numbness or tingling. She does have pain about the right hip extending towards her groin and over the posterior lateral aspect. She denies head trauma. She denies pain in her knee or foot. Consults Consult date: 11/20/18 Requesting physician: Elias Pichardo Consult Reason Right hip fracture Assessment and Plan (1) Closed intertrochanteric fracture of right femur: Start date: 11/20/18 Current visit: Yes Status: Acute Lisseth is a 73-year-old who suffered an intertrochanteric hip fracture on the right side. She has notable comminution and shortening and deformity of the leg which would indicate for surgical fixation. I reviewed treatment options with her. She does have this irregular rhythm but otherwise she is without significant risk. Unfortunately, due to her use of apixaban we will need to delay her surgery to allow the apixaban to clear to let minimize bleeding from surgery itself. Given the extension distal to the lesser trochanter I recommend an intramedullary nail. I reviewed the risk of this procedure to include bleeding, infection, pain, stiffness, malunion, nonunion, loss of reduction, hardware failure, fracture, blood clot. Despite these risks, she elects to proceed. We should be able to do this on , getting it fixed as soon as possible but also minimize the risk from bleeding. She will need to be n.p.o. Monday night. I will use 1 dose of tranexamic acid prior to surgical incision. Qualifiers: Encounter type: initial encounter Fracture alignment: displaced Qualified Code(s): S72.141A - Displaced intertrochanteric fracture of right femur, initial encounter for closed fracture 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) Mild intermittent asthma with acute exacerbation (Chronic 07/07/15) Microscopic hematuria (Chronic 09/11/15) Low back pain (Chronic 07/29/08) Irritable bowel syndrome with constipation (Chronic 09/18/17) Impaired renal function disorder (Chronic 09/12/12) Idiopathic peripheral neuropathy (Chronic) Hypothyroidism (Chronic 06/10/08) Hypercholesterolemia (Chronic) Hoarseness (Chronic 12/25/14) 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) Gastroparesis (Chronic) Endometrial polyp (Chronic 04/14/16) Endometrial mass (Chronic 03/07/16) Cough (Chronic) Congestion of both ears (Chronic 01/24/18) Chronic sinusitis (Chronic 02/25/13) Bloating (Chronic 09/18/17) Bipolar disorder (Chronic) Arthritis (Chronic) Alcohol abuse (Resolved) Closed fracture of lower leg (Resolved) Diarrhea (Resolved 02/20/18) Goiter (Resolved) Labial burning (Resolved 06/30/15) Nuclear sclerotic cataract of left eye (Resolved) Nuclear sclerotic cataract of right eye (Resolved) Pelvic pain in female (Resolved 03/01/16) Pneumonia, organism unspecified (Resolved) Posterior subcapsular age-related cataract of left eye (Resolved) Posterior subcapsular age-related cataract, right eye (Resolved) Surgical History Status post cataract extraction and insertion of intraocular lens of left eye (Chronic 08/10/18) Status post cataract extraction and insertion of intraocular lens of right eye (Chronic 07/27/18) H/O esophagogastroduodenoscopy (Resolved) H/O shoulder replacement (Resolved) Colonoscopy - MAC Dilation and curettage (03/31/16) EGD - MAC (05/15/14) Hysteroscopy (03/31/16) SHOULDER REPLACEMENT Social History Smoking/Tobacco Use Status: Former Tobacco Use Alcohol Intake: former Drug use: Never Substance use type: does not use Details: quit smoking 30 yrs ago Do you feel safe at home: Yes Do you feel safe in your relationship?: Yes Exam Narrative Exam Narrative: Lisseth is laying in supine position within the bed. Her right leg is notably externally rotated, flexed, shortened. She is breathing comfortably on room air. Her head is normocephalic and atraumatic. Evaluation of right leg shows no significant ecchymosis. No overlying skin changes. No pain to palpation of the right knee, right leg, or right foot and ankle. She is able to extend and flex the toes and the ankle without discomfort or pain or limitation. She endorses full sensation over the deep and superficial peroneal nerves and tibial nerves. Her foot is warm well perfused with a palpable DP and PT pulse. Range of motion of the hip was not performed. Results Last Vital Signs Temp 36.5 C 11/21/18 11:51 Pulse 90 11/21/18 11:51 Resp 18 11/21/18 11:51 BP 116/67 11/21/18 11:51 Pulse Ox 97 11/21/18 11:51 Labs : 11/21/18 10:12 11/21/18 10:12 Laboratory Results - last 24 hr 11/20/18 11/20/18 11/20/18 16:00 16:00 16:00 WBC 6.12 RBC 3.97 L Hgb 12.9 Hct 39.0 MCV 98.2 H MCH 32.5 MCHC 33.1 RDW 12.5 Plt Count 224 MPV 11.2 H Immature Gran % 0.2 Neutrophils % 66.8 Lymphocytes % 21.1 Monocytes % 8.7 Eosinophils % 2.5 Basophils % 0.7 Absolute Neutrophils 4.10 Absolute Lymphocytes 1.29 Absolute Monocytes 0.53 Absolute Eosinophils 0.15 Absolute Basophils 0.04 PT 9.6 INR 1.0 APTT 24.5 Sodium 139 Potassium 3.6 Chloride 102 Carbon Dioxide 25.7 Anion Gap 11.3 H BUN 20 H Creatinine 1.14 H Estimated GFR/1.73 m2 46.85 Glucose 103 H Calcium 9.1 Magnesium Total Bilirubin 0.3 AST 15 ALT 24 Alkaline Phosphatase 96 Troponin I Total Protein 7.1 Albumin 3.9 TSH Patient ABO/Rh Antibody Screen 11/20/18 11/20/18 11/21/18 16:00 16:00 10:12 WBC RBC Hgb Hct MCV MCH MCHC RDW Plt Count MPV Immature Gran % Neutrophils % Lymphocytes % Monocytes % Eosinophils % Basophils % Absolute Neutrophils Absolute Lymphocytes Absolute Monocytes Absolute Eosinophils Absolute Basophils PT INR APTT Sodium 135 L Potassium 3.7 Chloride 99 Carbon Dioxide 27.3 Anion Gap 8.7 BUN 15 Creatinine 1.16 H Estimated GFR/1.73 m2 45.92 Glucose 125 H Calcium 8.7 Magnesium 2.0 Total Bilirubin AST ALT Alkaline Phosphatase Troponin I < 0.02 Total Protein Albumin TSH Patient ABO/Rh O Positive Antibody Screen Negative 11/21/18 11/21/18 10:12 10:12 WBC 6.16 RBC 3.63 L Hgb 11.6 L Hct 35.8 L MCV 98.6 H MCH 32.0 MCHC 32.4 RDW 12.6 Plt Count 177 MPV 10.2 Immature Gran % 0.2 Neutrophils % 74.5 Lymphocytes % 9.9 Monocytes % 10.6 Eosinophils % 4.2 Basophils % 0.6 Absolute Neutrophils 4.59 Absolute Lymphocytes 0.61 L Absolute Monocytes 0.65 Absolute Eosinophils 0.26 Absolute Basophils 0.04 PT INR APTT Sodium Potassium Chloride Carbon Dioxide Anion Gap BUN Creatinine Estimated GFR/1.73 m2 Glucose Calcium Magnesium Total Bilirubin AST ALT Alkaline Phosphatase Troponin I Total Protein Albumin TSH 0.70 Patient ABO/Rh Antibody Screen Imaging Imaging Studies: Right hip x-ray demonstrates an intertrochanteric hip fracture with some comminution extension distal to the lesser trochanter. Notable malrotation and shortening.
--- NOTE | 2018-11-21 15:29 | W.PM.PROGNOT ---
Date of Service Date of service: 11/21/18 Time of Service: 15:29 Assessment and Plan (1) Closed intertrochanteric fracture of right femur: Current visit: Yes Status: Acute Mechanical. For surgery tomorrow. Check vitamin D level. NPO after midnight. Patient is medically cleared for surgery. Qualifiers: Encounter type: initial encounter Fracture alignment: displaced Qualified Code(s): S72.141A - Displaced intertrochanteric fracture of right femur, initial encounter for closed fracture (2) Peptic reflux disease: Current visit: No Status: Chronic Continue protonix. (3) Irritable bowel syndrome with constipation: Current visit: No Status: Chronic Continue home linzess. We will be proactive with her bowel regimen - colace and senna are scheduled. If no BM x 48 hours, the patient agrees to have an enema. (4) Hypothyroidism: Current visit: No Status: Chronic Continue synthroid (5) Bipolar disorder: Current visit: No Status: Chronic No change in home therapy (6) Paroxysmal A-fib: Current visit: Yes Status: Acute Rate is controlled. Hold eliquis in light of upcoming surgery. (7) Discharge planning issues: Current visit: Yes Status: Acute Full code (8) DVT prophylaxis: Current visit: Yes Status: Acute eliquis on hold - as above. Written for TEDs/SCD's Subjective Interval history since last seen: Mr Lomeli states her pain is controlled. She denies dizziness, chest pain, shortness of breath, nausea. She hasn't had a BM in 24 hours. She has passed flatus. She states that on her lengthy admission at [facility] in the past, she has had to have several disimpactions. The patient states that she had a negative stress test 2 years ago. She does report occasional chest pains, but those have been worked up and are due to anxiety. Exam Narrative Exam Narrative: General: very pleasant middle-aged female, laying comfortably in bed, NAD, A&Ox3 HEENT: EOMI, dry MM Heart: RRR, no m/r/g Lungs: CTAB (diminished) GI: abdomen is soft, slightly distended, nontender, + BS Extremities: no e/c/c BLE's, 1+ BLE pedal pulses. Objective Objective Clinical Data: Abnormal lab results 11/20/18 11/20/18 11/21/18 Range/Units 16:00 16:00 10:12 RBC 3.97 L (4.00-5.20) m/cumm Hgb (12.0-15.5) g/dL Hct (36.0-46.0) % MCV 98.2 H (80-95) fL MPV 11.2 H (8.0-11.0) fL Absolute Lymphocytes (1.2-3.4) k/cumm Sodium 135 L (136-145) mmol/L Anion Gap 11.3 H (3-11) mmol/L BUN 20 H (7-18) mg/dL Creatinine 1.14 H 1.16 H (0.55-1.02) mg/dL Glucose 103 H 125 H (70-100) mg/dL 11/21/18 Range/Units 10:12 RBC 3.63 L (4.00-5.20) m/cumm Hgb 11.6 L (12.0-15.5) g/dL Hct 35.8 L (36.0-46.0) % MCV 98.6 H (80-95) fL MPV (8.0-11.0) fL Absolute Lymphocytes 0.61 L (1.2-3.4) k/cumm Sodium (136-145) mmol/L Anion Gap (3-11) mmol/L BUN (7-18) mg/dL Creatinine (0.55-1.02) mg/dL Glucose (70-100) mg/dL Vital Signs Temperature 36.5 C 11/21/18 11:51 Temperature Source Tympanic 11/21/18 11:51 Pulse 90 11/21/18 11:51 Pulse Rhythm Regular 11/21/18 09:22 Respiratory Rate 18 11/21/18 11:51 Respiratory Effort Non-Labored 11/21/18 09:22 Respiratory Depth Normal 11/21/18 09:22 Respiratory Pattern Normal 11/21/18 09:22 Blood Pressure 116/67 11/21/18 11:51 Blood Pressure Mean 73 11/20/18 16:31 Blood Pressure Position Sitting 11/20/18 15:36 Pulse Oximetry 97 11/21/18 11:51 Oxygen Delivery Method Room Air 11/21/18 11:51 Oxygen Flow Rate 0 11/21/18 11:51 Pain Level 5 11/21/18 15:04 Intake & Output 11/20/18 11/21/18 11/21/18 23:59 11:59 23:59 Intake Total 270 / 270 980 / 1430 450 / 1430 Output Total 650 / 650 200 / 350 150 / 350 Balance -380 / -380 780 / 1080 300 / 1080 Weight 63.503 kg Intake: IV 30 / 30 Oral 240 / 240 980 / 1430 450 / 1430 Output: Urine 650 / 650 200 / 350 150 / 350 Other: Urine Color Yellow Yellow Dark Jeannie Urine Appearance Clear Clear Clear Laboratory Results WBC 6.16 k/cumm (4.4-10.8) 11/21/18 10:12 RBC 3.63 m/cumm (4.00-5.20) L 11/21/18 10:12 Hgb 11.6 g/dL (12.0-15.5) L 11/21/18 10:12 Hct 35.8 % (36.0-46.0) L 11/21/18 10:12 MCV 98.6 fL (80-95) H 11/21/18 10:12 MCH 32.0 pg (27.0-33.0) 11/21/18 10:12 MCHC 32.4 g/dL (32.0-36.0) 11/21/18 10:12 RDW 12.6 % (11.7-14.6) 11/21/18 10:12 Plt Count 177 x1000/uL (130-400) 11/21/18 10:12 MPV 10.2 fL (8.0-11.0) 11/21/18 10:12 Immature Gran % 0.2 11/21/18 10:12 Neutrophils % 74.5 11/21/18 10:12 Lymphocytes % 9.9 11/21/18 10:12 Monocytes % 10.6 11/21/18 10:12 Eosinophils % 4.2 11/21/18 10:12 Basophils % 0.6 11/21/18 10:12 Absolute Neutrophils 4.59 k/cumm (1.2-6.7) 11/21/18 10:12 Absolute Lymphocytes 0.61 k/cumm (1.2-3.4) L 11/21/18 10:12 Absolute Monocytes 0.65 k/cumm (0.11-0.7) 11/21/18 10:12 Absolute Eosinophils 0.26 k/cumm (0.0-0.7) 11/21/18 10:12 Absolute Basophils 0.04 k/cumm (0.0-0.2) 11/21/18 10:12 PT 9.6 sec (9.3-11.0) 11/20/18 16:00 INR 1.0 (0.9-1.1) 11/20/18 16:00 APTT 24.5 sec (21.0-31.4) 11/20/18 16:00 Sodium 135 mmol/L (136-145) L 11/21/18 10:12 Potassium 3.7 mmol/L (3.5-5.1) 11/21/18 10:12 Chloride 99 mmol/L (98-107) 11/21/18 10:12 Carbon Dioxide 27.3 mmol/L (21.0-32.0) 11/21/18 10:12 Anion Gap 8.7 mmol/L (3-11) 11/21/18 10:12 BUN 15 mg/dL (7-18) 11/21/18 10:12 Creatinine 1.16 mg/dL (0.55-1.02) H 11/21/18 10:12 Estimated GFR/1.73 m2 45.92 (mL/min/1.73m2) 11/21/18 10:12 Glucose 125 mg/dL (70-100) H 11/21/18 10:12 Calcium 8.7 mg/dL (8.5-10.1) 11/21/18 10:12 Magnesium 2.0 mg/dL (1.8-2.4) 11/21/18 10:12 Total Bilirubin 0.3 mg/dL (0.2-1.0) 11/20/18 16:00 AST 15 U/L (15-37) 11/20/18 16:00 ALT 24 U/L (12-78) 11/20/18 16:00 Alkaline Phosphatase 96 U/L (46-116) 11/20/18 16:00 Troponin I < 0.02 ng/mL (0.00-0.06) 11/20/18 16:00 Total Protein 7.1 g/dL (6.4-8.2) 11/20/18 16:00 Albumin 3.9 g/dL (3.4-5.0) 11/20/18 16:00 TSH 0.70 uIU/mL (0.358-3.74) 11/21/18 10:12 Patient ABO/Rh O Positive 11/20/18 16:00 Antibody Screen Negative 11/20/18 16:00 EKG 11/20/18: NSR, HR 74, nonspecific ST changes, no change from prior. CXR 11/20/18: No acute pulmonary process. Per my read, there is slight atelectasis bilateral lower lobes
--- NOTE | 2018-11-21 15:34 | CHAPLAIN ---
Lisseth told me about her falling and realizing right away that it was broken. She is waiting for surgery. She seems comfortable being here and engaged in conversation. I explained my role and offered support.
[2018-11-21] MEDS: Normal Saline 1,000 ML 125 ML IV ×2 (16:38→23:58)
[2018-11-21] MEDS: Senna TAB 1 TAB PO (20:06)
[2018-11-21] MEDS: Docusate Sodium 100 MG CAP PO (20:06)
[2018-11-21] MEDS: Ondansetron 4 MG/2 ML VIAL IVP (20:06)
[2018-11-21] MEDS: Melatonin 3 MG TAB 15 MG PO (21:58)
[2018-11-21] MEDS: Gabapentin 600 MG TAB PO (21:58)
[2018-11-22] VITALS (13 sets, daily range): BP systolic 98–139; BP diastolic 52–75; PULSE 76–94; RESP 12–19; TEMP 36.1–39.4; O2SAT 92–99
[2018-11-22] MEDS: Ketorolac 15 MG/ML VIAL IVP ×4 (03:03→22:49)
[2018-11-22] MEDS: Normal Saline Flush 10 ML SYR IVP ×2 (04:00→08:31)
[2018-11-22] MEDS: Normal Saline 1,000 ML 150 ML IV (06:33)
[2018-11-22] MEDS: Levothyroxine 125 MCG TAB PO (06:33)
[2018-11-22] MEDS: Budesonide/Formoterol 160/4.5 6 GM 60 PUFF INH IH (07:20)
[2018-11-22 07:48] LABS: Abs Immature Grans 0.01 k/cumm (0.0-0.09); Absolute Basophil Count 0.04 k/cumm (0.0-0.2); Absolute Eosinophil Count 0.43 k/cumm (0.0-0.7); Absolute Lymphocyte Count 0.97 k/cumm (1.2-3.4); Absolute Monocyte Count 0.52 k/cumm (0.11-0.7); Absolute Neutrophil Count 3.79 k/cumm (1.2-6.7); Basophils % 0.7; Eosinophils % 7.5; HCT 33.9 % (36.0-46.0); HGB 10.9 g/dL (12.0-15.5); Immature Grans % 0.2; Lymphocytes % 16.8; Mean Corp. HGB Concentration 32.2 g/dL (32.0-36.0); Mean Corpuscular Hemoglobin 31.9 pg (27.0-33.0); Mean Corpuscular Volume 99.1 fL (80-95); Mean Platelet Volume 10.9 fL (8.0-11.0); Neutrophils % 65.8; Platelet Count 158 x1000/uL (130-400); RBC 3.42 m/cumm (4.00-5.20); RBC Distribution Width 12.3 % (11.7-14.6); White Blood Cell Count 5.76 k/cumm (4.4-10.8)
[2018-11-22 07:49] LABS: Anion Gap 5.7 mmol/L (3-11); BUN 16 mg/dL (7-18); CO2 28.3 mmol/L (21.0-32.0); Calcium 8.7 mg/dL (8.5-10.1); Chloride 102 mmol/L (98-107); Glucose 101 mg/dL (70-100); Magnesium 1.8 mg/dL (1.8-2.4); Potassium 4.4 mmol/L (3.5-5.1); Sodium 136 mmol/L (136-145)
[2018-11-22 08:30] LABS: Vitamin D 25 Total 57.5 ng/ml (30-100)
[2018-11-22] MEDS: buPROPion-XL 150 MG TABCR 300 MG PO (08:31)
[2018-11-22] MEDS: Pantoprazole 40 MG TABCR PO (08:32)
[2018-11-22] MEDS: Atorvastatin 20 MG TAB PO (08:32)
[2018-11-22] MEDS: Docusate Sodium 100 MG CAP PO ×2 (08:32→19:35)
[2018-11-22] MEDS: Senna TAB 1 TAB PO ×2 (08:32→19:35)
[2018-11-22] MEDS: DULoxetine 30 MG CAP 60 MG PO (08:32)
[2018-11-22] MEDS: Gabapentin 300 MG CAP PO (08:33)
--- NOTE | 2018-11-22 11:43 | DI.RAD_ITS ---
SYMPTOMS/DIAGNOSIS: RIGHT HIP FRACTURE RIGHT HIP IN THE OR: Fluoroscopy Time: 97.2 sec Four views were obtained and show gamma nail fixation of an intertrochanteric fracture of the femur with an intramedullary helene. Please see Dr. Benítez's procedure note.
--- NOTE | 2018-11-22 12:16 | PHARADMIT ---
Addendum entered by Aruna Roman 11/24/18 14:09: Pharmacy Note Subjective post op hip fracture having right shoulder pain Objective pain 5/10, vs ok, Mag 1.6, large BM yesterday, H/H 8.3/25.5 Assessment IVF stopped, Mag Iv bolus ordered Plan watch pain control, BM, H/H Addendum entered by Adán Mejias III 11/23/18 16:57: Pharmacy Note Subjective PT post-op. Objective VS-OK Pain: 01/23, Lytes, SCr,-OK, WBC-9.65 H&H-9.4/29.0 No BM yet Assessment Transition to PO steroids Plan Original Note: Admission Pharmacy Clinical Review HIP FRACTURE (Surgery 11/22/18) Code Status Full Code Current Weight Wgt-63.5 kg Renally Cleared and Narrow Therapeutic Index Meds CrCl~ 40.2mL/min Meds-OK QTc Value / Action Taken QTc-428 na BP Control, Fever BP-121/60 Tmax- 36.7C Electrolytes reviewed Na- 136 K+4.4 Mag-1.8 DVT Prophylaxis No (going to OR ) Opiate Usage / Scheduled Bowel Regimen Ordered Yes Yes Plt/SCr for Heparin / Enoxaparin Plts-158 SCr-1.0 INR for Warfarin inr-1.0 H/H stable, WBC/Bands H&H- 10.9/33.9 WBC-5.76 Antibiotic appropriateness Ancef(pre-OP) Cultures and Sensitivities none Surgical ABX d/c within 24 hr not yet DM control / Insulin Dosing BG- 101 Heart Failure (Check EF%) (SONDRA's, B-Block, Diuretics) NONE IV to PO Switch No Home Meds Reviewed Yes Home Meds Not Ordered Acyclovir, Apixaban, Azelastine Bogata, Diprosone,Caltrate, Flexeril, Dexilant, Estrace, Advair, Flonase, Lutein, M-Vit, Seroquel,TAC Crm Comments Kaity Ackerman
[2018-11-22] MEDS: Lactated Ringers 1,000 ML 200 ML IV (12:51)
--- NOTE | 2018-11-22 13:07 | PDOC.CMPRO ---
- If Service Date Differs Date of service: 11/22/18 Time of Service: 13:07 Care Management Progress Note s/O: Lisseth is being prepped for surgery this afternoon for a fractured right hip. She is doing her incentive sp.pre operatively. No change in status today. Anticipate she will be discharged home when medically ready. She will have PT and OT eval post surgical. A:Archana is a 73 year old female admitted for a fractured right hip status post fall. P: Archana will have surgery to repair right fractured hip today. She continues to receive pain control and IV fluids. PT/OT consult while inpatient. She will plan to transition home supports including home health PT and OT. CM will continue to provide support discharge planning.
[2018-11-22] MEDS: Droperidol 5 MG/2 ML VIAL 0.625 MG IVP (14:50)
--- NOTE | 2018-11-22 15:07 | W.PM.OP ---
Date of service: 11/22/18 Time of Service: 14:07 Operative Note DATE OF PROCEDURE: 11/22/18 PRE-OP DIAGNOSIS: Right Intertrochanteric Hip Fracture POST-OP DIAGNOSIS: same PROCEDURE: Right Intramedullary Fixation of Proximal Femur Fracture SURGEON: Greyson Benítez ANESTHESIA: GETSuhas ESTIMATED BLOOD LOSS: 100 PATHOLOGY: none sent COMPLICATIONS: None Patient was transported to: PACU Patient's condition: stable Implants: Dep[employer]ynthes TFNA 11mm x 360mm Indications: Lisseth is a 73yo female who presented to the Emergency Department after a fall. X-rays confirmed the diagnosis of a intertrochanteric fracture of the proximal femur. I reviewed the possible treatment options and given the fracture of the femur, I recommened operative fixation. I discussed the technical details of the surgery. I reviewed the risks such as bleeding, infection, pain, stiffness, malunion, nonunion, hardware prominence, hardware faiilure, malrotation, avascular necrosis, blood clot. Despite these risks, she agreed to proceed. Findings: There was a fracture of the proximal femur which was able to be reduced with traction and internal rotation and external manipulation. Procedure Description: Lisseth was greeted in the preoperative area. Consent was previously reviewed and signed. Once in the operating room, anesthesia was administered. The patient was transferred to the fracture table in the supine position. She was positioned onto the perineal post. All bony prominences were well padded. The arm of the operative side was then placed across the chest and secured. The nonoperative leg was scissored and secured to the traction boom with a pillow and tape. The operative limb was placed in the traction boot and padded and secured. A gentle reduction was then performed with traction and internal rotation and gentle external manipulation. A single dose of TXA, 1 gram, was then administered IV. Prophylactic antibiotics, Cefazolin 2 grams, was given for prophylactic antibiotics. A timeout was performed for safe surgery. The right leg was prepped with Chloraprep. A shower curtain drape was placed. Using fluoroscopy, the starting point was marked over the lateral hip, proximal to the tip of the greater trochanter. A 3cm incision was made through skin and the fascia of the gluteus musculature until the tip of the trochanter was palpable. The starting wire was placed onto the tip, just slightly on the media aspect, and centered in the AP plane. Using a ronal, the starting guide wire was buried into the bone. A lateral x-ray confirmed appropriate position and the guidewire was advanced to the level of the lesser trochanter. With a tissue protector, the proximal femur was opened with the opening reamer. A ball-tipped guide wire was inserted into the femur and advanced to the distal extent. AP and lateral fluoroscopic images confirmed appropriate positioning in the distal femur. The length was measured as 360mm. A Synthes TFNA [id number] nail was selected and opened on the back table. The femur was reamed sequentially from 9mm to 13mm. The nail was assembled to the aiming arm on the back table and confirmed to be aligned with the triple sleeve for blade insertion. Using manual force the nail was advanced into the femur. A few light mallet blows advanced the nail to its appropriate position. The triple sleeve was inserted through the targeting arm and the skin, soft tissue, and IT band was then incised. The triple sleeve was advanced down to the lateral femur. A guidewire was advanced into the femoral head where it was noted to be centered. A lateral x-ray was used to confirm centered positioning on the lateral. Happy with the length of the guidewire, this was measured. A 100mm helical blade was opened. The path of the blade was reamed with a tapered reamer to appropriate depth. The helical blade was malletted into position and confirmed to be appropriately located on fluoroscopy. The set screw was advanced to a half turn shy of fully tightened, allowing for the helical blade to slide. The fracture was compressed before removing the targeting device. The targeting device was removed. AP and lateral x-rays of both the hip and the knee confirmed appropriate positioning within the femur and with good alignment of the fracture. The c-arm was moved to the knee where perfect circles were obtained for distal screw placement. The skin and deeper tissues were incised down to the femur. The drill was taken through the femur, nail, and opposite cortex. This was measured. The screw was inserted with good purchase and bite. Lateral x-ray showed the screw was through the nail and then an AP image confirmed appopriate length. Final x-rays were obtained. The wounds were thoroughly irrigated. 0.5% Bupivacaine was injected throughout the wounds over the leg. The deep fascia of the proximal two wounds was reapproximated with a 0 Vicryl. The deep tisses were closed with a 2-0 Vicryl and the skin was closed with steven. At the end of the case, all counts were correct. Lisseth tolerated the procedure well without known complication and was taken to the PACU for recovery. Physical therapy will start post-operatively, weigh-bearing as tolerated with assistive devices. Anticoagulation will start within 12-24 hours. 3 doses of post-operative antibitiocis for prophylaxis will
[2018-11-22] MEDS: Lactated Ringers 1,000 ML 80 ML IV ×2 (15:31→19:35)
--- NOTE | 2018-11-22 17:52 | W.PM.PROGNOT ---
Date of Service Date of service: 11/22/18 Time of Service: 16:00 Assessment and Plan (1) Closed intertrochanteric fracture of right femur: Current visit: Yes Status: Acute s/p ORIF today. Will trend H/H. Bettencourt in. Encourage IS. Has a bowel regimen. PT/OT. Qualifiers: Encounter type: initial encounter Fracture alignment: displaced Qualified Code(s): S72.141A - Displaced intertrochanteric fracture of right femur, initial encounter for closed fracture (2) Peptic reflux disease: Current visit: No Status: Chronic Continue protonix. (3) Irritable bowel syndrome with constipation: Current visit: No Status: Chronic Continue home linzess, colace and senna. If no BM tomorrow, the patient agrees to have an enema. (4) Hypothyroidism: Current visit: No Status: Chronic Continue synthroid (5) Bipolar disorder: Current visit: No Status: Chronic No change in home therapy (6) Paroxysmal A-fib: Current visit: Yes Status: Acute Rate is controlled. Eliquis resumed. (7) Discharge planning issues: Current visit: Yes Status: Acute Full code (8) DVT prophylaxis: Current visit: Yes Status: Acute eliquis. TEDs/SCD's Subjective Interval history since last seen: Ms Lomeli is s/p her R hip ORIF today. Her post-op note is not available for my review at this time. Patient seen post-op. She stated her pain was controlled. She denied chest pain, dizziness, shortness of breath, nausea. Still no BM, but + flatus. Exam Narrative Exam Narrative: General: very pleasant middle-aged female, slightly uncomfortable, NAD, A&Ox3 HEENT: EOMI, MMM Heart: RRR, no m/r/g Lungs: CTAB (diminished) GI: abdomen is soft, slightly distended, nontender, + BS Extremities: R hip incision is c/d/i; no e/c/c BLE's, 1+ BLE pedal pulses. Objective Objective Clinical Data: Abnormal lab results 11/22/18 11/22/18 Range/Units 06:50 06:50 RBC 3.42 L (4.00-5.20) m/cumm Hgb 10.9 L (12.0-15.5) g/dL Hct 33.9 L (36.0-46.0) % MCV 99.1 H (80-95) fL Absolute Lymphocytes 0.97 L (1.2-3.4) k/cumm Glucose 101 H (70-100) mg/dL Vital Signs Temperature 39.4 C H 11/22/18 15:49 Temperature Source Tympanic 11/22/18 15:49 Pulse 86 11/22/18 15:49 Pulse Rhythm Regular 11/22/18 10:28 Respiratory Rate 18 11/22/18 15:49 Respiratory Effort 11/22/18 10:28 Respiratory Depth Normal 11/22/18 10:28 Respiratory Pattern Normal 11/22/18 10:28 Blood Pressure 113/63 11/22/18 15:49 Blood Pressure Mean 73 11/20/18 16:31 Blood Pressure Position Sitting 11/20/18 15:36 Pulse Oximetry 92 L 11/22/18 15:49 Respiratory End-tidal CO2 33 11/22/18 15:00 Oxygen Delivery Method Room Air 11/22/18 15:49 Oxygen Flow Rate 0 11/22/18 15:49 Pain Level 4 11/22/18 16:15 Comment 11/22/18 03:38 Intake & Output 11/21/18 11/22/18 11/22/18 23:59 11:59 23:59 Intake Total 1606.667 / 2586.667 971.25 / 2619.25 1648 / 2619.25 Output Total 300 / 500 1900 / 2650 750 / 2650 Balance 1306.667 / 2086.667 -928.75 / -30.75 898 / -30.75 Intake: IV 916.667 / 916.667 971.25 / 2619.25 1648 / 2619.25 Oral 690 / 1670 Output: Urine 300 / 500 1900 / 2400 500 / 2400 Estimated Blood Loss 250 / 250 Other: Urine Color Dark Jeannie Light Jeannie Pale Yellow Urine Appearance Clear Clear Clear Emesis Description None Laboratory Results WBC 5.76 k/cumm (4.4-10.8) 11/22/18 06:50 RBC 3.42 m/cumm (4.00-5.20) L 11/22/18 06:50 Hgb 10.9 g/dL (12.0-15.5) L 11/22/18 06:50 Hct 33.9 % (36.0-46.0) L 11/22/18 06:50 MCV 99.1 fL (80-95) H 11/22/18 06:50 MCH 31.9 pg (27.0-33.0) 11/22/18 06:50 MCHC 32.2 g/dL (32.0-36.0) 11/22/18 06:50 RDW 12.3 % (11.7-14.6) 11/22/18 06:50 Plt Count 158 x1000/uL (130-400) 11/22/18 06:50 MPV 10.9 fL (8.0-11.0) 11/22/18 06:50 Immature Gran % 0.2 11/22/18 06:50 Neutrophils % 65.8 11/22/18 06:50 Lymphocytes % 16.8 11/22/18 06:50 Monocytes % 9.0 11/22/18 06:50 Eosinophils % 7.5 11/22/18 06:50 Basophils % 0.7 11/22/18 06:50 Absolute Neutrophils 3.79 k/cumm (1.2-6.7) 11/22/18 06:50 Absolute Lymphocytes 0.97 k/cumm (1.2-3.4) L 11/22/18 06:50 Absolute Monocytes 0.52 k/cumm (0.11-0.7) 11/22/18 06:50 Absolute Eosinophils 0.43 k/cumm (0.0-0.7) 11/22/18 06:50 Absolute Basophils 0.04 k/cumm (0.0-0.2) 11/22/18 06:50 PT 9.6 sec (9.3-11.0) 11/20/18 16:00 INR 1.0 (0.9-1.1) 11/20/18 16:00 APTT 24.5 sec (21.0-31.4) 11/20/18 16:00 Sodium 136 mmol/L (136-145) 11/22/18 06:50 Potassium 4.4 mmol/L (3.5-5.1) 11/22/18 06:50 Chloride 102 mmol/L (98-107) 11/22/18 06:50 Carbon Dioxide 28.3 mmol/L (21.0-32.0) 11/22/18 06:50 Anion Gap 5.7 mmol/L (3-11) 11/22/18 06:50 BUN 16 mg/dL (7-18) 11/22/18 06:50 Creatinine 1.00 mg/dL (0.55-1.02) 11/22/18 06:50 Estimated GFR/1.73 m2 54.50 (mL/min/1.73m2) 11/22/18 06:50 Glucose 101 mg/dL (70-100) H 11/22/18 06:50 Calcium 8.7 mg/dL (8.5-10.1) 11/22/18 06:50 Magnesium 1.8 mg/dL (1.8-2.4) 11/22/18 06:50 Total Bilirubin 0.3 mg/dL (0.2-1.0) 11/20/18 16:00 AST 15 U/L (15-37) 11/20/18 16:00 ALT 24 U/L (12-78) 11/20/18 16:00 Alkaline Phosphatase 96 U/L (46-116) 11/20/18 16:00 Troponin I < 0.02 ng/mL (0.00-0.06) 11/20/18 16:00 Total Protein 7.1 g/dL (6.4-8.2) 11/20/18 16:00 Albumin 3.9 g/dL (3.4-5.0) 11/20/18 16:00 25-OH Vitamin D Total 57.5 ng/ml (30-100) 11/22/18 06:50 TSH 0.70 uIU/mL (0.358-3.74) 11/21/18 10:12 Patient ABO/Rh O Positive 11/20/18 16:00 Antibody Screen Negative 11/20/18 16:00
[2018-11-22] MEDS: oxyCODONE 5 MG TAB PO (19:35)
[2018-11-22] MEDS: Acetaminophen 325 MG TAB 650 MG PO (19:35)
[2018-11-22] MEDS: Cyclobenzaprine 10 MG TAB PO (19:35)
[2018-11-22] MEDS: Melatonin 3 MG TAB 15 MG PO (22:46)
[2018-11-22] MEDS: Gabapentin 600 MG TAB PO (22:46)
[2018-11-23] MEDS: oxyCODONE 5 MG TAB PO ×3 (01:04→16:33)
[2018-11-23] MEDS: Levothyroxine 125 MCG TAB PO (05:47)
[2018-11-23] MEDS: Acetaminophen 325 MG TAB 650 MG PO (05:48)
[2018-11-23 05:50] VITALS: BP 125/63; PULSE 89; RESP 18; TEMP 36.8; O2SAT 94
[2018-11-23 07:29] LABS: Abs Immature Grans 0.01 k/cumm (0.0-0.09); Absolute Basophil Count 0.01 k/cumm (0.0-0.2); Absolute Eosinophil Count 0.08 k/cumm (0.0-0.7); Absolute Lymphocyte Count 0.89 k/cumm (1.2-3.4); Absolute Monocyte Count 0.97 k/cumm (0.11-0.7); Absolute Neutrophil Count 7.69 k/cumm (1.2-6.7); Basophils % 0.1; Eosinophils % 0.8; HGB 9.4 g/dL (12.0-15.5); Immature Grans % 0.1; Lymphocytes % 9.2; Mean Corp. HGB Concentration 32.4 g/dL (32.0-36.0); Mean Corpuscular Hemoglobin 31.9 pg (27.0-33.0); Mean Corpuscular Volume 98.3 fL (80-95); Mean Platelet Volume 10.7 fL (8.0-11.0); Monocytes % 10.1; Neutrophils % 79.7; Platelet Count 151 x1000/uL (130-400); RBC 2.95 m/cumm (4.00-5.20); White Blood Cell Count 9.65 k/cumm (4.4-10.8)
[2018-11-23 07:40] VITALS: BP 102/50; PULSE 86; RESP 18; TEMP 37.5; O2SAT 93
[2018-11-23] MEDS: Budesonide/Formoterol 160/4.5 6 GM 60 PUFF INH IH ×2 (07:43→20:17)
[2018-11-23 07:45] VITALS: O2SAT 93
[2018-11-23 07:46] LABS: Anion Gap 6.2 mmol/L (3-11); BUN 14 mg/dL (7-18); CO2 26.8 mmol/L (21.0-32.0); CREATININE 1.01 mg/dL (0.55-1.02); Calcium 8.8 mg/dL (8.5-10.1); Chloride 102 mmol/L (98-107); Estimated GFR 53.88 (mL/min/1.73m2); Glucose 95 mg/dL (70-100); Magnesium 1.8 mg/dL (1.8-2.4); Potassium 4.4 mmol/L (3.5-5.1); Sodium 135 mmol/L (136-145)
[2018-11-23] MEDS: Gabapentin 300 MG CAP PO (09:53)
[2018-11-23] MEDS: Atorvastatin 20 MG TAB PO (09:53)
[2018-11-23] MEDS: Senna TAB 1 TAB PO ×2 (09:54→20:17)
[2018-11-23] MEDS: buPROPion-XL 150 MG TABCR 300 MG PO (09:54)
[2018-11-23] MEDS: Apixaban 5 MG TAB PO ×2 (09:54→20:16)
[2018-11-23] MEDS: DULoxetine 30 MG CAP 60 MG PO (09:54)
[2018-11-23] MEDS: Pantoprazole 40 MG TABCR PO (09:54)
[2018-11-23] MEDS: Docusate Sodium 100 MG CAP PO ×2 (09:54→20:16)
--- NOTE | 2018-11-23 10:26 | PDOC.CMPRO ---
Care Management Progress Note S/O: Archana continues to receive pain control, IV fluids and continues to work with PT/OT she is post op day #1. She completed advance directives with Chaplain Roselyn CM processed. Anticipate she will be discharged home when medically ready. No change to overall plan. A: Archana is a 73 year old female admitted for a fractured right hip status post fall. P: Pat continues to receive pain control, IV fluids and continues to work with PT/OT. She will plan to transition home with increased supports including new orders for home health PT and OT. SCOOTER will continue to provide support discharge planning.
[2018-11-23] MEDS: Normal Saline Flush 10 ML SYR IVP (10:33)
[2018-11-23] MEDS: ACETAMINOPHEN 1,000 MG/100 ML BTL 400 MG IVPB ×2 (11:10→18:27)
[2018-11-23] MEDS: Lactated Ringers 1,000 ML 80 ML IV ×2 (11:11→22:06)
[2018-11-23 11:41] VITALS: BP 107/62; PULSE 86; RESP 18; TEMP 37.2; O2SAT 93
--- NOTE | 2018-11-23 12:20 | IN_ITS ---
Date of service: 11/23/18 Time of Service: 08:48 PT Notes Inpatient Physical Therapy Evaluation Date: 11/22/2018 Referring Doctor: Greyson Benítez MD PT Orders: PT CONSULT: Status post IMN for right hip fracture. WBAT with assistive devices. Precautions: Fall. Standard. WBAT on right LE with FWW. Patient Profile/Admitting Diagnosis: Patient is a 73-year-old female who presented to the ED on 11/20/2018 due to a fall on wet leaves on her way out of the house and sustained a closed comminuted intertrochanteric fracture of the right femur and is status post ORIF using an intramedullary nail on postoperative day 1. 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) Mild intermittent asthma with acute exacerbation (Chronic 07/07/15) Microscopic hematuria (Chronic 09/11/15) Low back pain (Chronic 07/29/08) Irritable bowel syndrome with constipation (Chronic 09/18/17) Impaired renal function disorder (Chronic 09/12/12) Idiopathic peripheral neuropathy (Chronic) Hypothyroidism (Chronic 06/10/08) Hypercholesterolemia (Chronic) Hoarseness (Chronic 12/25/14) 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) Gastroparesis (Chronic) Endometrial polyp (Chronic 04/14/16) Endometrial mass (Chronic 03/07/16) Cough (Chronic) Congestion of both ears (Chronic 01/24/18) Chronic sinusitis (Chronic 02/25/13) Bloating (Chronic 09/18/17) Bipolar disorder (Chronic) Arthritis (Chronic) Alcohol abuse (Resolved) Closed fracture of lower leg (Resolved) Diarrhea (Resolved 02/20/18) Goiter (Resolved) Labial burning (Resolved 06/30/15) Nuclear sclerotic cataract of left eye (Resolved) Nuclear sclerotic cataract of right eye (Resolved) Pelvic pain in female (Resolved 03/01/16) Pneumonia, organism unspecified (Resolved) Posterior subcapsular age-related cataract of left eye (Resolved) Posterior subcapsular age-related cataract, right eye (Resolved) Surgical History Status post cataract extraction and insertion of intraocular lens of left eye (Chronic 08/10/18) Status post cataract extraction and insertion of intraocular lens of right eye (Chronic 07/27/18) H/O esophagogastroduodenoscopy (Resolved) H/O shoulder replacement (Resolved) Colonoscopy - MAC Dilation and curettage (03/31/16) EGD - MAC (05/15/14) Hysteroscopy (03/31/16) SHOULDER REPLACEMENT Social History/Home Situation: Patient lives with in a 1 floor house with 4 steps to enter leading onto a porch, rails on both sides. She states that she was independent with all aspects of ADLs without the need for use of an assistive device nor an adaptive equipment. She still drives. Current Functional Limitations: Need for physical assist during all bed mobility, transfers, and ambulation task performance Equipment Owned/DME: Walk-in type shower, raised toilet seat, shower bench, grab bars, FWW, cane Subjective: Patient pleasant and cooperative, agreeable to a PT consult today. She reports pain on her right hip at rest and with movement. She denies headache and chest discomfort throughout session but did report getting a little dizzy upon standing up for the first time from the edge of bed. She also complained about having a feeling of her right knee giving way during short distance walk and transferring. Objective: General Observation: Patient seen resting in bed. IV in the right UE. Anti-DVT pump on left leg. Surgical dressings on right lateral hip and knee seen. Mental Status: Alert and oriented x3 Pain: 5/10 on the right hip and knee at rest and 6/10 with weightbearing Vital Signs: 118/60 3 mmHg, 96% on room air, 99 bpm. ROM: Right Upper Extremity: Shoulder Flexion WFL. Shoulder abduction WFL. Elbow flexion WFL. Wrist flexion WFL. Functional opening and closing of hand WFL. Left Upper Extremity: Shoulder Flexion WFL. Shoulder abduction WFL. Elbow flexion WFL. Wrist flexion WFL. Functional opening and closing of hand WFL. Right Lower Extremity: Hip flexion 0-10 with AAROM while in supine with discomfort at end range. Hip abduction 0-5 with AAROM with discomfort at end range. Knee flexion 0-20 with AAROM in supine with discomfort at end range. Knee extension, patient able to assume full extension in supine without discomfort. Ankle dorsiflexion WFL. Ankle plantarflexion WFL. Left Lower Extremity: Hip flexion WFL. Hip abduction WFL. Knee flexion WFL. Ankle dorsiflexion WFL. Ankle plantarflexion WFL. Strength: Right Upper Extremity: Shoulder flexors 5/5. Shoulder abductors 5/5. Elbow flexors 5/5. Elbow extensors 5/5. Medical Assistant Dermatology strong. Left Upper Extremity: Shoulder flexors 5/5. Shoulder abductors 5/5. Elbow flexors 5/5. Elbow extensors 5/5. Medical Assistant Dermatology strong. Right Lower Extremity: Hip flexors 2-/5. Hip abductors 2-/5. Knee flexors 2-/5. Knee extensors 2-/5. Ankle dorsiflexors 5/5. Ankle plantarflexors 5/5. Left Lower Extremity:Hip flexors 4-/5. Hip abductors 4-/5. Knee flexors 4-/5. Knee extensors 4-/5. Ankle dorsiflexors 4/5. Ankle plantarflexors 4/5. Sensation: Intact as to pain on BLE Bed Mobility/Transfers: Rolling minimal assist to right LE with head of bed elevated to 30 degrees Supine to sit minimal assist to right LE with head of bed elevated to 30 degrees Sit to supine minimal assist to right LE with head of bed elevated to 30 degrees Sit to stand minimal assist with FWW Stand to sit minimal assist with FWW Bed to chair minimal assist with FWW Chair to bed minimal assist with FWW Gait: Patient was able to tolerate in room ambulation of 10 feet forward using F WW with minimal assist of PT and standby assist of an LMA for safety, she was able to back up and turn towards the recliner 5 feet with increase with report of pain at 6/10 on right LE. Patient also reported being mildly dizzy during activity but improved when patient sat back on chair. Patient also reported feeling a little unstable on the right knee but no buckling was demonstrated throughout gait and transfer activities. Balance: Static Sitting: Good Dynamic Sitting: Good Static Standing: Fair Dynamic Standing: Fair Special Tests: Mobility Limitations Standardized Measure [facility] AM-PAC 6 clicks Basic Mobility Inpatient Short Form: Raw Score: 18 CMS Score: 47% deficit Informed Consent/Education: Patient instructed in purpose of PT consult and plan of care. Patient was also instructed on safe techniques during movement transitions while transferring and changing directions using FWW. Assessment: Patient is a 73-year-old female with closed comminuted intertrochanteric fracture of the right femur and is status post ORIF using an intramedullary nail on postoperative day 1. Patient presents with clinical signs and symptoms consistent with current/admitting diagnoses that have resulted to mobility limitations, gait instability, generalized weakness, and impairment of motor control as demonstrated by the following impairment level findings: 1. Decreased strength to R LE major muscle groups 2. Impaired sitting/standing balance 3. Impaired activity tolerance 4. Limitation of joint range of motion in right hip and knee joints Impairments are contributing to the following functional limitations: 1. Dependent bed mobility skills 2. Increased dependence with transfers 3. Inability to safely ambulate without assistive device and physical assistance 4. Increase completion time for mobility ADL performance 5. Increased fall risk 6. Inability to negotiate steps alone safely Patient is assessed Moderate 72348 complexity based on the following: History: Patient is a 73-year-old female with closed comminuted intertrochanteric fracture of the right femur and is status post ORIF using an intramedullary nail on postoperative day 1 Examination: Underlying impairments and functional limitations as noted above Presentation: Evolving Decision Makin moderate complexity Goals: Goals X1 week 1. Supine-Sit independent 2. Sit-Supine independent 3. Sit-Stand independent 4. Stand-Sit independent 5. Bed-Chair independent 6. Chair-Bed independent 7. Independent gait on level surface with use of least restrictive device for at least 300 feet without report of pain 8. Independent stair negotiation while holding onto bilateral rails for at least 5 steps without report of pain 9. Independent with home exercise program 10. Good static and dynamic standing balance/tolerance Plan of Care/Treatment Plan: 1-2x/day, 7 days/week x 1 week. Plan of care has been reviewed with the SLURRY CONTROL TENDER providing the service under Physical Therapy direction. Initiate Physical Therapy intervention for strengthening, bed mobility, transfers, gait, stairs, balance training, use of assistive device. DISCHARGE RECOMMENDATIONS: Patient will benefit from group home facility placement in order to maximize mobility level, progress assistive device use, and reduce fall risk prior to home discharge. No equipment needs at this time. TREATMENT CODE/TIME: 48308 for 32 minutes beginning at 8:48 AM. Thank you for this referral. Kimmy Sapp, PT, DPT, CLT [facility]
--- NOTE | 2018-11-23 14:07 | CHAPLAIN ---
Care Management asked me to complete an Advance Directive with Lisseth, and so we did.
[2018-11-23 16:03] VITALS: BP 122/79; PULSE 90; RESP 18; TEMP 37.4; O2SAT 94
--- NOTE | 2018-11-23 16:08 | PT.INTREAT ---
Date of service: 11/23/18 Time of Service: 16:08 PT Notes Inpatient Physical Therapy Treatment Note [facility] Date: 11/23/18 PRECAUTIONS: Fall, WBAT on R SUBJECTIVE: Lisseth is agreeable to participating in PT. OBJECTIVE: PAIN: Patient c/o R LE pain with transfers and gait training BED MOBILITY/TRANSFERS Supine-sit: Min A Sit-stand: SBA Stand-sit: CGA GAIT Assistive Device: FWW Weight bearing: WBAT on R Assist: CGA Distance: 20' + 15' THER EX: Patient completed a LE strengthening and stabilization program, as per flow sheet. ASSESSMENT: Patient tolerated session with c/o R LE pain with gait and transfers. She was able to tolerate a progression in gait distance with FWW support and CGA. She would benefit from continued transfer training for improved mobility. PLAN: Continue with PT's POC TREATMENT CODE/TIME: 25 minutes; 45006, [id number]
[2018-11-23 19:07] VITALS: BP 123/74; PULSE 91; RESP 18; TEMP 37.3; O2SAT 93
--- NOTE | 2018-11-23 20:44 | W.PM.PROGNOT ---
Date of Service Date of service: 11/23/18 Time of Service: 15:15 Assessment and Plan (1) Closed intertrochanteric fracture of right femur: Current visit: Yes Status: Acute s/p ORIF 11/22/18 Continue a bowel regimen. Educated today on IS use. Continue bowel regimen. Continue PT/OT. Anticipated disposition is home with home health PT/OT. Qualifiers: Encounter type: initial encounter Fracture alignment: displaced Qualified Code(s): S72.141A - Displaced intertrochanteric fracture of right femur, initial encounter for closed fracture (2) Peptic reflux disease: Current visit: No Status: Chronic Continue protonix. (3) Irritable bowel syndrome with constipation: Current visit: No Status: Chronic Continue home linzess, colace and senna. Trialing dulcolax now - if ineffective, will use an enema. (4) Hypothyroidism: Current visit: No Status: Chronic Continue synthroid (5) Bipolar disorder: Current visit: No Status: Chronic No change in home therapy (6) Paroxysmal A-fib: Current visit: Yes Status: Acute Rate is controlled. Eliquis resumed. (7) Discharge planning issues: Current visit: Yes Status: Acute Full code (8) DVT prophylaxis: Current visit: Yes Status: Acute eliquis. TEDs/SCD's Subjective Interval history since last seen: Ms Lomeli states her pain is controlled. She was able to work with PT/OT today twice. Denies dizziness, chest pain, shortness of breath, nausea, vomiting. Does report constipation. Exam Narrative Exam Narrative: General: very pleasant middle-aged female, comfortable, NAD, A&Ox3 HEENT: EOMI, MMM Heart: RRR, no m/r/g Lungs: CTAB (diminished) GI: abdomen is soft, slightly distended, nontender, + BS Extremities: R hip incision is c/d/i; no e/c/c BLE's, 1+ BLE pedal pulses. Objective Objective Clinical Data: Abnormal lab results 11/23/18 11/23/18 Range/Units 07:00 07:00 RBC 2.95 L (4.00-5.20) m/cumm Hgb 9.4 L (12.0-15.5) g/dL Hct 29.0 L (36.0-46.0) % MCV 98.3 H (80-95) fL Absolute Neutrophils 7.69 H (1.2-6.7) k/cumm Absolute Lymphocytes 0.89 L (1.2-3.4) k/cumm Absolute Monocytes 0.97 H (0.11-0.7) k/cumm Sodium 135 L (136-145) mmol/L Vital Signs Temperature 37.3 C 11/23/18 19:07 Temperature Source Tympanic 11/23/18 19:07 Pulse 91 H 11/23/18 19:07 Pulse Rhythm Regular 11/23/18 18:06 Respiratory Rate 18 11/23/18 19:07 Respiratory Effort 11/23/18 18:06 Respiratory Depth Normal 11/23/18 18:06 Respiratory Pattern Normal 11/22/18 19:42 Blood Pressure 123/74 11/23/18 19:07 Blood Pressure Mean 73 11/20/18 16:31 Blood Pressure Position Sitting 11/20/18 15:36 Pulse Oximetry 93 L 11/23/18 19:07 Respiratory End-tidal CO2 33 11/22/18 15:00 Oxygen Delivery Method Room Air 11/23/18 19:07 Oxygen Flow Rate 0 11/23/18 19:07 Pain Level 8 11/23/18 20:17 Comment 11/22/18 03:38 Intake & Output 11/22/18 11/23/18 11/23/18 23:59 11:59 23:59 Intake Total 2413.333 / 3384.583 1822 / 2062 240 / 2062 Output Total 1200 / 3100 500 / 900 400 / 900 Balance 1213.333 / 092.195 0912 / 1162 -160 / 1162 Intake: IV 1973.333 / 2944.583 1522 / 1522 Oral 440 / 440 300 / 540 240 / 540 Output: Urine 950 / 2850 500 / 900 400 / 900 Estimated Blood Loss 250 / 250 Other: Urine Color Yellow Yellow Yellow Urine Appearance Clear Clear Clear Emesis Description None Laboratory Results WBC 9.65 k/cumm (4.4-10.8) D 11/23/18 07:00 RBC 2.95 m/cumm (4.00-5.20) L 11/23/18 07:00 Hgb 9.4 g/dL (12.0-15.5) L 11/23/18 07:00 Hct 29.0 % (36.0-46.0) L 11/23/18 07:00 MCV 98.3 fL (80-95) H 11/23/18 07:00 MCH 31.9 pg (27.0-33.0) 11/23/18 07:00 MCHC 32.4 g/dL (32.0-36.0) 11/23/18 07:00 RDW 12.0 % (11.7-14.6) 11/23/18 07:00 Plt Count 151 x1000/uL (130-400) 11/23/18 07:00 MPV 10.7 fL (8.0-11.0) 11/23/18 07:00 Immature Gran % 0.1 11/23/18 07:00 Neutrophils % 79.7 11/23/18 07:00 Lymphocytes % 9.2 11/23/18 07:00 Monocytes % 10.1 11/23/18 07:00 Eosinophils % 0.8 11/23/18 07:00 Basophils % 0.1 11/23/18 07:00 Absolute Neutrophils 7.69 k/cumm (1.2-6.7) H 11/23/18 07:00 Absolute Lymphocytes 0.89 k/cumm (1.2-3.4) L 11/23/18 07:00 Absolute Monocytes 0.97 k/cumm (0.11-0.7) H 11/23/18 07:00 Absolute Eosinophils 0.08 k/cumm (0.0-0.7) 11/23/18 07:00 Absolute Basophils 0.01 k/cumm (0.0-0.2) 11/23/18 07:00 PT 9.6 sec (9.3-11.0) 11/20/18 16:00 INR 1.0 (0.9-1.1) 11/20/18 16:00 APTT 24.5 sec (21.0-31.4) 11/20/18 16:00 Sodium 135 mmol/L (136-145) L 11/23/18 07:00 Potassium 4.4 mmol/L (3.5-5.1) 11/23/18 07:00 Chloride 102 mmol/L (98-107) 11/23/18 07:00 Carbon Dioxide 26.8 mmol/L (21.0-32.0) 11/23/18 07:00 Anion Gap 6.2 mmol/L (3-11) 11/23/18 07:00 BUN 14 mg/dL (7-18) 11/23/18 07:00 Creatinine 1.01 mg/dL (0.55-1.02) 11/23/18 07:00 Estimated GFR/1.73 m2 53.88 (mL/min/1.73m2) 11/23/18 07:00 Glucose 95 mg/dL (70-100) 11/23/18 07:00 Calcium 8.8 mg/dL (8.5-10.1) 11/23/18 07:00 Magnesium 1.8 mg/dL (1.8-2.4) 11/23/18 07:00 Total Bilirubin 0.3 mg/dL (0.2-1.0) 11/20/18 16:00 AST 15 U/L (15-37) 11/20/18 16:00 ALT 24 U/L (12-78) 11/20/18 16:00 Alkaline Phosphatase 96 U/L (46-116) 11/20/18 16:00 Troponin I < 0.02 ng/mL (0.00-0.06) 11/20/18 16:00 Total Protein 7.1 g/dL (6.4-8.2) 11/20/18 16:00 Albumin 3.9 g/dL (3.4-5.0) 11/20/18 16:00 25-OH Vitamin D Total 57.5 ng/ml (30-100) 11/22/18 06:50 TSH 0.70 uIU/mL (0.358-3.74) 11/21/18 10:12 Patient ABO/Rh O Positive 11/20/18 16:00 Antibody Screen Negative 11/20/18 16:00
[2018-11-23] MEDS: Gabapentin 600 MG TAB PO (22:03)
[2018-11-23] MEDS: Melatonin 3 MG TAB 15 MG PO (22:03)
--- NOTE | 2018-11-23 22:54 | W.PM.PROGNOT ---
Date of Service Date of service: 11/23/18 Time of Service: 12:54 Assessment and Plan (1) Closed intertrochanteric fracture of right femur: Current visit: Yes Status: Acute Pat is s/p IMN of R intertrochanteric hip fracture. She is doing well to get up to the chair on her first day. She is having some pain but seems to be managing it well with the current regimen. She may resume her Apixaban. She does have acute post-operative blood loss anemia but has had stable vitals and her current Hgb is 9.4, but we should continue to follow that. Keep the dressings in place until Monday and then replace with Mepilex. Continue PT daily - WBAT with assistive devices. D/C rodriguez tomorrow. Qualifiers: Encounter type: initial encounter Fracture alignment: displaced Qualified Code(s): S72.141A - Displaced intertrochanteric fracture of right femur, initial encounter for closed fracture Subjective Interval history since last seen: Pat reports that the sharp pain with any motion is better but she is having more global pain throughout the proximal thigh. She was able to get up to a chair this morning. She felt as if her knee was going to buckle but it didn't and she managed well. She denies any chest pain, shortness of breath, palpitations. Vitals ahve been stable. Exam Narrative Exam Narrative: Supine in the bed. NAD. AAOx3. RLE dressings are c/d/i. Thigh is full, swollen but compressible. No significant pain with gentle IR/ER of the hip. +ADF/APF/EHL/FHL. SILT DP/SP/Tib. Foot WWP. Objective Objective Clinical Data: Abnormal lab results 11/23/18 11/23/18 Range/Units 07:00 07:00 RBC 2.95 L (4.00-5.20) m/cumm Hgb 9.4 L (12.0-15.5) g/dL Hct 29.0 L (36.0-46.0) % MCV 98.3 H (80-95) fL Absolute Neutrophils 7.69 H (1.2-6.7) k/cumm Absolute Lymphocytes 0.89 L (1.2-3.4) k/cumm Absolute Monocytes 0.97 H (0.11-0.7) k/cumm Sodium 135 L (136-145) mmol/L Vital Signs Temperature 37.3 C 11/23/18 19:07 Temperature Source Tympanic 11/23/18 19:07 Pulse 91 H 11/23/18 19:07 Pulse Rhythm Regular 11/23/18 18:06 Respiratory Rate 18 11/23/18 19:07 Respiratory Effort 11/23/18 18:06 Respiratory Depth Normal 11/23/18 18:06 Respiratory Pattern Normal 11/22/18 19:42 Blood Pressure 123/74 11/23/18 19:07 Blood Pressure Mean 73 11/20/18 16:31 Blood Pressure Position Sitting 11/20/18 15:36 Pulse Oximetry 93 L 11/23/18 19:07 Respiratory End-tidal CO2 33 11/22/18 15:00 Oxygen Delivery Method Room Air 11/23/18 19:07 Oxygen Flow Rate 0 11/23/18 19:07 Pain Level 8 11/23/18 20:17 Comment 11/22/18 03:38 Intake & Output 11/22/18 11/23/18 11/23/18 23:59 11:59 23:59 Intake Total 2413.333 / 3384.583 1822 / 2935.333 1113.333 / 2935.333 Output Total 1200 / 3100 500 / 900 400 / 900 Balance 1213.333 / 532.352 9424 / 2035.333 713.333 / 2035.333 Intake: IV 1973.333 / 2944.583 1522 / 2395.333 873.333 / 2395.333 Oral 440 / 440 300 / 540 240 / 540 Output: Urine 950 / 2850 500 / 900 400 / 900 Estimated Blood Loss 250 / 250 Other: Urine Color Yellow Yellow Yellow Urine Appearance Clear Clear Clear Emesis Description None Laboratory Results WBC 9.65 k/cumm (4.4-10.8) D 11/23/18 07:00 RBC 2.95 m/cumm (4.00-5.20) L 11/23/18 07:00 Hgb 9.4 g/dL (12.0-15.5) L 11/23/18 07:00 Hct 29.0 % (36.0-46.0) L 11/23/18 07:00 MCV 98.3 fL (80-95) H 11/23/18 07:00 MCH 31.9 pg (27.0-33.0) 11/23/18 07:00 MCHC 32.4 g/dL (32.0-36.0) 11/23/18 07:00 RDW 12.0 % (11.7-14.6) 11/23/18 07:00 Plt Count 151 x1000/uL (130-400) 11/23/18 07:00 MPV 10.7 fL (8.0-11.0) 11/23/18 07:00 Immature Gran % 0.1 11/23/18 07:00 Neutrophils % 79.7 11/23/18 07:00 Lymphocytes % 9.2 11/23/18 07:00 Monocytes % 10.1 11/23/18 07:00 Eosinophils % 0.8 11/23/18 07:00 Basophils % 0.1 11/23/18 07:00 Absolute Neutrophils 7.69 k/cumm (1.2-6.7) H 11/23/18 07:00 Absolute Lymphocytes 0.89 k/cumm (1.2-3.4) L 11/23/18 07:00 Absolute Monocytes 0.97 k/cumm (0.11-0.7) H 11/23/18 07:00 Absolute Eosinophils 0.08 k/cumm (0.0-0.7) 11/23/18 07:00 Absolute Basophils 0.01 k/cumm (0.0-0.2) 11/23/18 07:00 PT 9.6 sec (9.3-11.0) 11/20/18 16:00 INR 1.0 (0.9-1.1) 11/20/18 16:00 APTT 24.5 sec (21.0-31.4) 11/20/18 16:00 Sodium 135 mmol/L (136-145) L 11/23/18 07:00 Potassium 4.4 mmol/L (3.5-5.1) 11/23/18 07:00 Chloride 102 mmol/L (98-107) 11/23/18 07:00 Carbon Dioxide 26.8 mmol/L (21.0-32.0) 11/23/18 07:00 Anion Gap 6.2 mmol/L (3-11) 11/23/18 07:00 BUN 14 mg/dL (7-18) 11/23/18 07:00 Creatinine 1.01 mg/dL (0.55-1.02) 11/23/18 07:00 Estimated GFR/1.73 m2 53.88 (mL/min/1.73m2) 11/23/18 07:00 Glucose 95 mg/dL (70-100) 11/23/18 07:00 Calcium 8.8 mg/dL (8.5-10.1) 11/23/18 07:00 Magnesium 1.8 mg/dL (1.8-2.4) 11/23/18 07:00 Total Bilirubin 0.3 mg/dL (0.2-1.0) 11/20/18 16:00 AST 15 U/L (15-37) 11/20/18 16:00 ALT 24 U/L (12-78) 11/20/18 16:00 Alkaline Phosphatase 96 U/L (46-116) 11/20/18 16:00 Troponin I < 0.02 ng/mL (0.00-0.06) 11/20/18 16:00 Total Protein 7.1 g/dL (6.4-8.2) 11/20/18 16:00 Albumin 3.9 g/dL (3.4-5.0) 11/20/18 16:00 25-OH Vitamin D Total 57.5 ng/ml (30-100) 11/22/18 06:50 TSH 0.70 uIU/mL (0.358-3.74) 11/21/18 10:12 Patient ABO/Rh O Positive 11/20/18 16:00 Antibody Screen Negative 11/20/18 16:00
[2018-11-24] VITALS (7 sets, daily range): BP systolic 102–125; BP diastolic 60–70; PULSE 85–97; RESP 18–20; TEMP 37–37.7; O2SAT 93–97
[2018-11-24] MEDS: ACETAMINOPHEN 1,000 MG/100 ML BTL 400 MG IVPB ×3 (01:36→17:38)
[2018-11-24] MEDS: Ketorolac 15 MG/ML VIAL IVP ×3 (01:36→23:49)
[2018-11-24] MEDS: Levothyroxine 125 MCG TAB PO (05:08)
[2018-11-24 06:23] LABS: Abs Immature Grans 0.01 k/cumm (0.0-0.09); Absolute Basophil Count 0.03 k/cumm (0.0-0.2); Absolute Eosinophil Count 0.45 k/cumm (0.0-0.7); Absolute Lymphocyte Count 0.94 k/cumm (1.2-3.4); Absolute Monocyte Count 0.64 k/cumm (0.11-0.7); Basophils % 0.5; HCT 25.5 % (36.0-46.0); HGB 8.3 g/dL (12.0-15.5); Immature Grans % 0.2; Lymphocytes % 14.7; Mean Corp. HGB Concentration 32.5 g/dL (32.0-36.0); Mean Corpuscular Hemoglobin 32.2 pg (27.0-33.0); Mean Corpuscular Volume 98.8 fL (80-95); Mean Platelet Volume 10.3 fL (8.0-11.0); Neutrophils % 67.6; Platelet Count 144 x1000/uL (130-400); RBC 2.58 m/cumm (4.00-5.20); RBC Distribution Width 12.4 % (11.7-14.6); White Blood Cell Count 6.41 k/cumm (4.4-10.8)
[2018-11-24 06:25] LABS: Absolute Neutrophil Count 4.33 k/cumm (1.2-6.7)
[2018-11-24 06:26] LABS: Anion Gap 6.6 mmol/L (3-11); BUN 14 mg/dL (7-18); CO2 26.4 mmol/L (21.0-32.0); Calcium 8.3 mg/dL (8.5-10.1); Chloride 101 mmol/L (98-107); Glucose 94 mg/dL (70-100); Magnesium 1.6 mg/dL (1.8-2.4); Potassium 4.4 mmol/L (3.5-5.1); Sodium 134 mmol/L (136-145)
[2018-11-24] MEDS: Docusate Sodium 100 MG CAP PO ×2 (07:24→20:19)
[2018-11-24] MEDS: DULoxetine 30 MG CAP 60 MG PO (07:24)
[2018-11-24] MEDS: Senna TAB 1 TAB PO ×2 (07:24→20:19)
[2018-11-24] MEDS: Apixaban 5 MG TAB PO ×2 (07:24→20:18)
[2018-11-24] MEDS: Pantoprazole 40 MG TABCR PO (07:24)
[2018-11-24] MEDS: buPROPion-XL 150 MG TABCR 300 MG PO (07:24)
[2018-11-24] MEDS: Atorvastatin 20 MG TAB PO (07:24)
[2018-11-24] MEDS: Gabapentin 300 MG CAP PO (07:25)
[2018-11-24] MEDS: Budesonide/Formoterol 160/4.5 6 GM 60 PUFF INH IH ×2 (08:12→20:21)
--- NOTE | 2018-11-24 09:10 | DI.RAD_ITS ---
SYMPTOMS/DIAGNOSIS: SHOULDER PAIN POST FALL LEFT SHOULDER: Comparison is made with [id number]. A left shoulder prosthesis is again noted. There is no evidence of fracture or dislocation. Degenerative changes of the AC joint and chronic rotator cuff tear are again noted. There is some lucency around the proximal portion of the humeral prosthesis which does not appear changed. IMPRESSION: No acute abnormality.
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
[2018-11-24] MEDS: Normal Saline Flush 10 ML SYR IVP ×3 (09:47→23:49)
[2018-11-24] MEDS: MAGNESIUM SULFATE 4 GM/100 ML BAG IVPB (10:09)
--- NOTE | 2018-11-24 11:46 | PT.INTREAT ---
Date of service: 11/24/18 Time of Service: 11:46 PT Notes Inpatient Physical Therapy Treatment Note [facility] Date: 11/24/18 PRECAUTIONS: Fall, WBAT on R SUBJECTIVE: Lisseth reports that she is having significant pain in R hip this morning. OBJECTIVE: PAIN: Patient c/o R LE pain with transfers, ther ex, and gait training BED MOBILITY/TRANSFERS Sit-supine: SBA with leg data visualization developer Sit-stand: SBA Stand-sit: SBA GAIT Assistive Device: FWW Weight bearing: WBAT on R Assist: SBA Distance: 40' x2 THER EX: Patient completed a LE strengthening and stabilization program, as per flow sheet. STAIRS: Up/down 3x4 using B rails and a step to pattern with SBA ASSESSMENT: Patient tolerated session with c/o R LE pain with gait, transfers, and ther ex. She was able to tolerate a progression in gait distance with FWW support and SBA. She would benefit from continued transfer and gait training as well as strengthening for improved mobility and improved ability to perform daily functional tasks at a more independent level. PLAN: Continue with PT's POC TREATMENT CODE/TIME: 30 minutes; [id number], [id number]
--- NOTE | 2018-11-24 11:50 | PTTR_ITS ---
Date of service: 11/24/18 Time of Service: 11:46 PT Notes Inpatient Physical Therapy Treatment Note [facility] Date: 11/24/18 PRECAUTIONS: Fall, WBAT on R SUBJECTIVE: Lisseth reports that she is having significant pain in R hip this morning. OBJECTIVE: PAIN: Patient c/o R LE pain with transfers, ther ex, and gait training BED MOBILITY/TRANSFERS Sit-supine: SBA with leg route agent Sit-stand: SBA Stand-sit: SBA GAIT Assistive Device: FWW Weight bearing: WBAT on R Assist: SBA Distance: 40' x2 THER EX: Patient completed a LE strengthening and stabilization program, as per flow sheet. STAIRS: Up/down 3x4 using B rails and a step to pattern with SBA ASSESSMENT: Patient tolerated session with c/o R LE pain with gait, transfers, and ther ex. She was able to tolerate a progression in gait distance with FWW support and SBA. She would benefit from continued transfer and gait training as well as strengthening for improved mobility and improved ability to perform daily functional tasks at a more independent level. PLAN: Continue with PT's POC TREATMENT CODE/TIME: 30 minutes; [id number], [id number]
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
--- NOTE | 2018-11-24 12:55 | PGE_ITS ---
Date of Service Date of service: 11/24/18 Time of Service: 10:54 Assessment and Plan (1) Closed intertrochanteric fracture of right femur: Current visit: Yes Status: Acute Lisseth is making great progres. I'm impressed she has already ambulated the hernandez and done some stairs but it did take great effort and she still has significant pain which needs better control. She should continue WBAT with assistive devices. Encourage PT and then likely d/c home when able to transfer indepedently and have better pain control. Change dressings to Mepilex square dressings tomorrow. Qualifiers: Encounter type: initial encounter Fracture alignment: displaced Qualified Code(s): S72.141A - Displaced intertrochanteric fracture of right femur, initial encounter for closed fracture (2) Strain of tendon of left rotator cuff: Current visit: Yes Status: Larry Montanez had a previous injury to her left shoulder and has likely deficiencies of her rotator cuff at baseline. X-rays do not demonstrate any fracture but the hemiarthroplasty is high-riding with chronic changes to the superior glenoid and the undersurface of the acromion. This most likely represents a chronic rotator cuff tear. Nevertheless, her motion is superb. She has mild weakness and some mild pain. The nighttime pain and the motion pain is likely due to injury to the rotator cuff from her fall. Fortunately, she has not had any significant weakness which would push us to look deeper at this time. Treat with ice, NSAIDs, and heat if she preferes. Qualifiers: Encounter type: initial encounter Qualified Code(s): S46.012A - Strain of muscle(s) and tendon(s) of the rotator cuff of left shoulder, initial encounter Subjective Interval history since last seen: Lisseth reports some pain in the right thigh but she has been able to get up and walk and even do stairs today. The pain is different from before surgery. Her knee has not buckled any more. No numbness or tingling. She denies any shortness of breath, chest pain, or palpitations. She did complain of some left shoulder pain, especially during the night. She thinks she caught herself with the left arm. She did have a left shoulder hemiarthroplasty performed for fracture more than 20 years ago ( she thinks 23 years ago). She has been able to use the left arm and she has been able to tayler ce weight through it while using the walker to ambulate. The initiation of movement of the arm away from her body causes the greatest pain. She denies any pre-fall pain in the left shoulder. Exam Narrative Exam Narrative: RLE: Dressing c/d/i. Thigh is swollen but compressible. Some ecchymosis present. Tolerates IR/ER of the hip with minimal pain. Some mild pain to palpation throughout the thigh. +ADF/APF/EHL/FHL. SILT DP/SP/Tib. Foot WWP. LUE: Incision seen anteriorly without sign of infection. No appreciable swelling or ecchymosis. Exam is performed supine due to patient comfort with the hip, but she demonstrates excellent range of motion. With a little effort she has 170 degrees of abduction, 160 degrees of forward flexion. She only has about 20 degrees of external rotation which she reports is her baseline. 4/5 abduction and external rotation strength whicch causes slight pain. 5/5 internal rotation strength. Some mild pain to palpation over leo anterolateral aspect of the shoulder. SILT Axillary nerve. Objective Objective Clinical Data: Abnormal lab results 11/24/18 11/24/18 Range/Units 05:54 05:54 RBC 2.58 L (4.00-5.20) m/cumm Hgb 8.3 L (12.0-15.5) g/dL Hct 25.5 L (36.0-46.0) % MCV 98.8 H (80-95) fL Absolute Lymphocytes 0.94 L (1.2-3.4) k/cumm Sodium 134 L (136-145) mmol/L Calcium 8.3 L (8.5-10.1) mg/dL Magnesium 1.6 L (1.8-2.4) mg/dL Vital Signs Temperature 37.1 C 11/24/18 07:20 Temperature Source Tympanic 11/24/18 07:20 Pulse 97 H 11/24/18 07:20 Pulse Rhythm Regular 11/24/18 07:17 Respiratory Rate 18 11/24/18 07:20 Respiratory Effort Non-Labored 11/24/18 07:17 Respiratory Depth Normal 11/24/18 07:17 Respiratory Pattern Normal 11/24/18 07:17 Blood Pressure 113/66 11/24/18 07:20 Blood Pressure Mean 73 11/20/18 16:31 Blood Pressure Position Sitting 11/20/18 15:36 Pulse Oximetry 97 11/24/18 09:06 Respiratory End-tidal CO2 33 11/22/18 15:00 Oxygen Delivery Method Room Air 11/24/18 09:06 Oxygen Flow Rate 0 11/24/18 09:06 Pain Level 6 11/24/18 09:46 Comment 11/22/18 03:38 Intake & Output 11/23/18 11/24/18 11/24/18 23:59 11:59 23:59 Intake Total 1213.333 / 3035.333 2520 / 2520 Output Total 400 / 900 950 / 950 Balance 813.333 / 2135.333 1570 / 1570 Intake: IV 973.333 / 2495.333 1220 / 1220 Oral 240 / 540 1300 / 1300 Output: Urine 400 / 900 950 / 950 Other: Urine Color Yellow Yellow Urine Appearance Clear Clear Stool Size Copious Stool Characteristics Liquid Laboratory Results WBC 6.41 k/cumm (4.4-10.8) D 11/24/18 05:54 RBC 2.58 m/cumm (4.00-5.20) L 11/24/18 05:54 Hgb 8.3 g/dL (12.0-15.5) L 11/24/18 05:54 Hct 25.5 % (36.0-46.0) L 11/24/18 05:54 MCV 98.8 fL (80-95) H 11/24/18 05:54 MCH 32.2 pg (27.0-33.0) 11/24/18 05:54 MCHC 32.5 g/dL (32.0-36.0) 11/24/18 05:54 RDW 12.4 % (11.7-14.6) 11/24/18 05:54 Plt Count 144 x1000/uL (130-400) 11/24/18 05:54 MPV 10.3 fL (8.0-11.0) 11/24/18 05:54 Immature Gran % 0.2 11/24/18 05:54 Neutrophils % 67.6 11/24/18 05:54 Lymphocytes % 14.7 11/24/18 05:54 Monocytes % 10.0 11/24/18 05:54 Eosinophils % 7.0 11/24/18 05:54 Basophils % 0.5 11/24/18 05:54 Absolute Neutrophils 4.33 k/cumm (1.2-6.7) 11/24/18 05:54 Absolute Lymphocytes 0.94 k/cumm (1.2-3.4) L 11/24/18 05:54 Absolute Monocytes 0.64 k/cumm (0.11-0.7) 11/24/18 05:54 Absolute Eosinophils 0.45 k/cumm (0.0-0.7) 11/24/18 05:54 Absolute Basophils 0.03 k/cumm (0.0-0.2) 11/24/18 05:54 PT 9.6 sec (9.3-11.0) 11/20/18 16:00 INR 1.0 (0.9-1.1) 11/20/18 16:00 APTT 24.5 sec (21.0-31.4) 11/20/18 16:00 Sodium 134 mmol/L (136-145) L 11/24/18 05:54 Potassium 4.4 mmol/L (3.5-5.1) 11/24/18 05:54 Chloride 101 mmol/L (98-107) 11/24/18 05:54 Carbon Dioxide 26.4 mmol/L (21.0-32.0) 11/24/18 05:54 Anion Gap 6.6 mmol/L (3-11) 11/24/18 05:54 BUN 14 mg/dL (7-18) 11/24/18 05:54 Creatinine 0.90 mg/dL (0.55-1.02) 11/24/18 05:54 Estimated GFR/1.73 m2 >= 60.00 (mL/min/1.73m2) 11/24/18 05:54 Glucose 94 mg/dL (70-100) 11/24/18 05:54 Calcium 8.3 mg/dL (8.5-10.1) L 11/24/18 05:54 Magnesium 1.6 mg/dL (1.8-2.4) L 11/24/18 05:54 Total Bilirubin 0.3 mg/dL (0.2-1.0) 11/20/18 16:00 AST 15 U/L (15-37) 11/20/18 16:00 ALT 24 U/L (12-78) 11/20/18 16:00 Alkaline Phosphatase 96 U/L (46-116) 11/20/18 16:00 Troponin I < 0.02 ng/mL (0.00-0.06) 11/20/18 16:00 Total Protein 7.1 g/dL (6.4-8.2) 11/20/18 16:00 Albumin 3.9 g/dL (3.4-5.0) 11/20/18 16:00 25-OH Vitamin D Total 57.5 ng/ml (30-100) 11/22/18 06:50 TSH 0.70 uIU/mL (0.358-3.74) 11/21/18 10:12 Patient ABO/Rh O Positive 11/20/18 16:00 Antibody Screen Negative 11/20/18 16:00
[2018-11-24] MEDS: oxyCODONE 5 MG TAB PO ×2 (15:42→20:19)
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
[2018-11-24] MEDS: Melatonin 3 MG TAB 15 MG PO (21:24)
[2018-11-24] MEDS: Gabapentin 600 MG TAB PO (21:25)
[2018-11-25] VITALS (7 sets, daily range): BP systolic 118–148; BP diastolic 59–76; PULSE 76–91; RESP 16–20; TEMP 36.6–37; O2SAT 95–98
[2018-11-25] MEDS: ACETAMINOPHEN 1,000 MG/100 ML BTL 400 MG IVPB ×2 (01:51→09:52)
[2018-11-25] MEDS: Levothyroxine 125 MCG TAB PO (05:26)
[2018-11-25] MEDS: Budesonide/Formoterol 160/4.5 6 GM 60 PUFF INH IH ×2 (07:48→20:21)
[2018-11-25] MEDS: buPROPion-XL 150 MG TABCR 300 MG PO (07:58)
[2018-11-25] MEDS: Docusate Sodium 100 MG CAP PO ×2 (07:58→20:21)
[2018-11-25] MEDS: Atorvastatin 20 MG TAB PO (07:58)
[2018-11-25] MEDS: Pantoprazole 40 MG TABCR PO (07:58)
[2018-11-25] MEDS: Senna TAB 1 TAB PO (07:58)
[2018-11-25] MEDS: Gabapentin 300 MG CAP PO (07:58)
[2018-11-25] MEDS: Apixaban 5 MG TAB PO ×2 (07:59→20:21)
[2018-11-25] MEDS: DULoxetine 30 MG CAP 60 MG PO (07:59)
[2018-11-25 08:45] LABS: Abs Immature Grans 0.01 k/cumm (0.0-0.09); Absolute Basophil Count 0.05 k/cumm (0.0-0.2); Absolute Eosinophil Count 0.35 k/cumm (0.0-0.7); Absolute Lymphocyte Count 0.66 k/cumm (1.2-3.4); Absolute Monocyte Count 0.57 k/cumm (0.11-0.7); Absolute Neutrophil Count 5.15 k/cumm (1.2-6.7); Basophils % 0.7; Eosinophils % 5.2; HCT 26.2 % (36.0-46.0); HGB 8.7 g/dL (12.0-15.5); Immature Grans % 0.1; Lymphocytes % 9.7; Mean Corp. HGB Concentration 33.2 g/dL (32.0-36.0); Mean Corpuscular Hemoglobin 32.2 pg (27.0-33.0); Mean Platelet Volume 10.5 fL (8.0-11.0); Monocytes % 8.4; Neutrophils % 75.9; Platelet Count 173 x1000/uL (130-400); RBC Distribution Width 12.1 % (11.7-14.6); White Blood Cell Count 6.79 k/cumm (4.4-10.8)
[2018-11-25 08:51] LABS: Anion Gap 9.6 mmol/L (3-11); BUN 11 mg/dL (7-18); CO2 24.4 mmol/L (21.0-32.0); CREATININE 0.83 mg/dL (0.55-1.02); Calcium 8.5 mg/dL (8.5-10.1); Chloride 100 mmol/L (98-107); Glucose 94 mg/dL (70-100); Magnesium 2.1 mg/dL (1.8-2.4); Potassium 4.4 mmol/L (3.5-5.1); Sodium 134 mmol/L (136-145)
[2018-11-25] MEDS: oxyCODONE 5 MG TAB PO ×3 (09:13→17:52)
[2018-11-25] MEDS: Normal Saline Flush 10 ML SYR IVP ×3 (09:53→20:20)
--- NOTE | 2018-11-25 10:15 | W.PM.PROGNOT ---
Date of Service Date of service: 11/25/18 Time of Service: 10:15 Assessment and Plan (1) Closed intertrochanteric fracture of right femur: Current visit: Yes Status: Acute POD#3 s/p IMN fixation of R IT Hip Fracture. Doing well but still having significant pain with ambulation. Encourage continued mobilizatiuon to ready for home d/c. Continue to work on pain management. Likely d/c home tomorrow with HHPT. Continue Eliquis. Qualifiers: Encounter type: initial encounter Fracture alignment: displaced Qualified Code(s): S72.141A - Displaced intertrochanteric fracture of right femur, initial encounter for closed fracture Subjective Patient reports: no new complaints, feels better and still having pain Interval history since last seen: Able to mobilize with PT but having significant pain after. Better than yesterday. Left shoulder is improved. Exam Narrative Exam Narrative: RLE dressings intact. Mepilex dressings applied for dressing change. Incisions and c/d/i without drainage. Thigh is full and swollen with ecchymosis. Tolerates IR/ER of the hip. +ADF/APF/EHL/FHL. SITL DP/SP/Tib. Foot WWP Objective Objective Clinical Data: Abnormal lab results 11/25/18 11/25/18 Range/Units 08:30 08:30 RBC 2.70 L (4.00-5.20) m/cumm Hgb 8.7 L (12.0-15.5) g/dL Hct 26.2 L (36.0-46.0) % MCV 97.0 H (80-95) fL Absolute Lymphocytes 0.66 L (1.2-3.4) k/cumm Sodium 134 L (136-145) mmol/L Vital Signs Temperature 36.7 C 11/25/18 07:15 Temperature Source Tympanic 11/25/18 07:15 Pulse 91 H 11/25/18 07:15 Pulse Rhythm Regular 11/25/18 07:51 Respiratory Rate 18 11/25/18 07:15 Respiratory Effort Non-Labored 11/25/18 07:51 Respiratory Depth Normal 11/25/18 07:51 Respiratory Pattern Normal 11/25/18 07:51 Blood Pressure 133/71 11/25/18 07:15 Blood Pressure Mean 73 11/20/18 16:31 Blood Pressure Position Sitting 11/20/18 15:36 Pulse Oximetry 96 11/25/18 07:15 Respiratory End-tidal CO2 33 11/22/18 15:00 Oxygen Delivery Method Room Air 11/25/18 07:15 Oxygen Flow Rate 0 11/25/18 07:15 Pain Level 5 11/25/18 09:52 Comment 11/22/18 03:38 Intake & Output 11/24/18 11/24/18 11/25/18 11:59 23:59 11:59 Intake Total 2520 / 3220 700 / 3220 100 / 100 Output Total 950 / 1700 750 / 1700 Balance 1570 / 1520 -50 / 1520 100 / 100 Intake: IV 1220 / 1440 220 / 1440 100 / 100 Oral 1300 / 1780 480 / 1780 Output: Urine 950 / 1700 750 / 1700 Other: Urine Color Yellow Light Jeannie Urine Appearance Clear Clear Clear Urine Odor None Comment Void post rodriguez d/c. Stool Size Copious Smear Stool Characteristics Liquid Hard Voiding Methods Bedside Commode Laboratory Results WBC 6.79 k/cumm (4.4-10.8) 11/25/18 08:30 RBC 2.70 m/cumm (4.00-5.20) L 11/25/18 08:30 Hgb 8.7 g/dL (12.0-15.5) L 11/25/18 08:30 Hct 26.2 % (36.0-46.0) L 11/25/18 08:30 MCV 97.0 fL (80-95) H 11/25/18 08:30 MCH 32.2 pg (27.0-33.0) 11/25/18 08:30 MCHC 33.2 g/dL (32.0-36.0) 11/25/18 08:30 RDW 12.1 % (11.7-14.6) 11/25/18 08:30 Plt Count 173 x1000/uL (130-400) 11/25/18 08:30 MPV 10.5 fL (8.0-11.0) 11/25/18 08:30 Immature Gran % 0.1 11/25/18 08:30 Neutrophils % 75.9 11/25/18 08:30 Lymphocytes % 9.7 11/25/18 08:30 Monocytes % 8.4 11/25/18 08:30 Eosinophils % 5.2 11/25/18 08:30 Basophils % 0.7 11/25/18 08:30 Absolute Neutrophils 5.15 k/cumm (1.2-6.7) 11/25/18 08:30 Absolute Lymphocytes 0.66 k/cumm (1.2-3.4) L 11/25/18 08:30 Absolute Monocytes 0.57 k/cumm (0.11-0.7) 11/25/18 08:30 Absolute Eosinophils 0.35 k/cumm (0.0-0.7) 11/25/18 08:30 Absolute Basophils 0.05 k/cumm (0.0-0.2) 11/25/18 08:30 PT 9.6 sec (9.3-11.0) 11/20/18 16:00 INR 1.0 (0.9-1.1) 11/20/18 16:00 APTT 24.5 sec (21.0-31.4) 11/20/18 16:00 Sodium 134 mmol/L (136-145) L 11/25/18 08:30 Potassium 4.4 mmol/L (3.5-5.1) 11/25/18 08:30 Chloride 100 mmol/L (98-107) 11/25/18 08:30 Carbon Dioxide 24.4 mmol/L (21.0-32.0) 11/25/18 08:30 Anion Gap 9.6 mmol/L (3-11) 11/25/18 08:30 BUN 11 mg/dL (7-18) 11/25/18 08:30 Creatinine 0.83 mg/dL (0.55-1.02) 11/25/18 08:30 Estimated GFR/1.73 m2 >= 60.00 (mL/min/1.73m2) 11/25/18 08:30 Glucose 94 mg/dL (70-100) 11/25/18 08:30 Calcium 8.5 mg/dL (8.5-10.1) 11/25/18 08:30 Magnesium 2.1 mg/dL (1.8-2.4) 11/25/18 08:30 Total Bilirubin 0.3 mg/dL (0.2-1.0) 11/20/18 16:00 AST 15 U/L (15-37) 11/20/18 16:00 ALT 24 U/L (12-78) 11/20/18 16:00 Alkaline Phosphatase 96 U/L (46-116) 11/20/18 16:00 Troponin I < 0.02 ng/mL (0.00-0.06) 11/20/18 16:00 Total Protein 7.1 g/dL (6.4-8.2) 11/20/18 16:00 Albumin 3.9 g/dL (3.4-5.0) 11/20/18 16:00 25-OH Vitamin D Total 57.5 ng/ml (30-100) 11/22/18 06:50 TSH 0.70 uIU/mL (0.358-3.74) 11/21/18 10:12 Patient ABO/Rh O Positive 11/20/18 16:00 Antibody Screen Negative 11/20/18 16:00
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
[2018-11-25] MEDS: Ketorolac 15 MG/ML VIAL IVP ×2 (11:21→20:20)
--- NOTE | 2018-11-25 15:49 | PDOC.CMPRO ---
Care Management Progress Note S/O: Archana continues to receive pain control, IV fluids and continues to work with PT/OT she is post op day #3. She is sitting up and visiting with her . Hopes to be able to go home soon. A: Archana is a 73 year old female admitted for a fractured right hip status post fall. P: Lisseth will return home when medically cleared for discharge. She will need increased supports including new orders for home health PT and OT. will transport.
--- NOTE | 2018-11-25 20:03 | PT.INTREAT ---
Date of service: 11/25/18 Time of Service: 20:03 PT Notes Inpatient Physical Therapy Treatment Note [facility] Date: 11/25/18 PRECAUTIONS: Fall, WBAT on R SUBJECTIVE: Lisseth reports that she is having significant pain in R hip this morning. OBJECTIVE: PAIN: Patient c/o R LE pain with transfers, ther ex, and gait training BED MOBILITY/TRANSFERS Sit-stand: SBA Stand-sit: SBA GAIT Assistive Device: FWW Weight bearing: WBAT on R Assist: SBA Distance: 40' x2 Deviation: Seated rest x1 THER EX: Patient completed a LE strengthening and stabilization program, as per flow sheet. STAIRS: Up/down 3x4 using B rails and a step to pattern with S ASSESSMENT: Patient tolerated session with c/o R LE pain with gait, transfers, and ther ex. She would benefit from continued transfer and gait training as well as strengthening for improved mobility and improved ability to perform daily functional tasks at a more independent level. PLAN: Continue with PT's POC TREATMENT CODE/TIME: 25 minutes; 26494, [id number]
[2018-11-25] MEDS: Melatonin 3 MG TAB 15 MG PO (21:53)
[2018-11-25] MEDS: Gabapentin 600 MG TAB PO (21:53)
[2018-11-25] MEDS: Acetaminophen 500 MG TAB 1000 MG PO (21:53)
[2018-11-26] MEDS: oxyCODONE 5 MG TAB PO ×3 (02:14→11:38)
[2018-11-26 03:44] VITALS: BP 132/74; PULSE 87; RESP 16; TEMP 36.6; O2SAT 97
[2018-11-26] MEDS: Levothyroxine 125 MCG TAB PO (06:01)
[2018-11-26] MEDS: Acetaminophen 500 MG TAB 1000 MG PO ×2 (06:01→11:38)
[2018-11-26 07:13] VITALS: BP 125/64; PULSE 90; RESP 19; TEMP 37; O2SAT 95
[2018-11-26] MEDS: Budesonide/Formoterol 160/4.5 6 GM 60 PUFF INH IH (07:32)
[2018-11-26] MEDS: Senna TAB 1 TAB PO (07:33)
[2018-11-26] MEDS: Docusate Sodium 100 MG CAP PO (07:33)
[2018-11-26] MEDS: Gabapentin 300 MG CAP PO (07:33)
[2018-11-26] MEDS: Apixaban 5 MG TAB PO (07:33)
[2018-11-26] MEDS: DULoxetine 30 MG CAP 60 MG PO (07:34)
[2018-11-26] MEDS: Pantoprazole 40 MG TABCR PO (07:34)
[2018-11-26] MEDS: buPROPion-XL 150 MG TABCR 300 MG PO (07:34)
[2018-11-26] MEDS: Atorvastatin 20 MG TAB PO (07:34)
[2018-11-26 08:13] LABS: Abs Immature Grans 0.01 k/cumm (0.0-0.09); Absolute Basophil Count 0.05 k/cumm (0.0-0.2); Absolute Eosinophil Count 0.39 k/cumm (0.0-0.7); Absolute Lymphocyte Count 0.78 k/cumm (1.2-3.4); Absolute Monocyte Count 0.58 k/cumm (0.11-0.7); Absolute Neutrophil Count 3.97 k/cumm (1.2-6.7); Basophils % 0.9; Eosinophils % 6.7; HCT 25.4 % (36.0-46.0); HGB 8.4 g/dL (12.0-15.5); Immature Grans % 0.2; Lymphocytes % 13.5; Mean Corp. HGB Concentration 33.1 g/dL (32.0-36.0); Mean Corpuscular Hemoglobin 32.4 pg (27.0-33.0); Mean Corpuscular Volume 98.1 fL (80-95); Mean Platelet Volume 9.8 fL (8.0-11.0); Neutrophils % 68.7; Platelet Count 209 x1000/uL (130-400); RBC 2.59 m/cumm (4.00-5.20); RBC Distribution Width 12.1 % (11.7-14.6); White Blood Cell Count 5.78 k/cumm (4.4-10.8)
[2018-11-26 08:18] LABS: Anion Gap 10.2 mmol/L (3-11); BUN 12 mg/dL (7-18); CO2 25.8 mmol/L (21.0-32.0); CREATININE 0.94 mg/dL (0.55-1.02); Calcium 8.5 mg/dL (8.5-10.1); Chloride 100 mmol/L (98-107); Estimated GFR 58.53 (mL/min/1.73m2); Glucose 91 mg/dL (70-100); Potassium 4.4 mmol/L (3.5-5.1); Sodium 136 mmol/L (136-145)
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
--- NOTE | 2018-11-26 09:28 | OTIE_ITS ---
Occupational Therapy Notes Inpatient Occupational Therapy Evaluation Date: 11/26/18 Referring Doctor:Elise Pastor NP OT Orders: Shoulder pain and hip fx Precautions: Fall, Standard PATIENT PROFILE/ADMITTING DIAGNOSIS: Pt is a 73 year old female who was admitted through the ER for a closed comminuted intertrochanteric fracture of the right f emur and is status post ORIF using an intramedullary nail. Pt states that she would like to go home as soon as possible. She also reports that her pain is limiting at this time. 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) Mild intermittent asthma with acute exacerbation (Chronic 07/07/15) Microscopic hematuria (Chronic 09/11/15) Low back pain (Chronic 07/29/08) Irritable bowel syndrome with constipation (Chronic 09/18/17) Impaired renal function disorder (Chronic 09/12/12) Idiopathic peripheral neuropathy (Chronic) Hypothyroidism (Chronic 06/10/08) Hypercholesterolemia (Chronic) Hoarseness (Chronic 12/25/14) 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) Gastroparesis (Chronic) Endometrial polyp (Chronic 04/14/16) Endometrial mass (Chronic 03/07/16) Cough (Chronic) Congestion of both ears (Chronic 01/24/18) Chronic sinusitis (Chronic 02/25/13) Bloating (Chronic 09/18/17) Bipolar disorder (Chronic) Arthritis (Chronic) Alcohol abuse (Resolved) Closed fracture of lower leg (Resolved) Diarrhea (Resolved 02/20/18) Goiter (Resolved) Labial burning (Resolved 06/30/15) Nuclear sclerotic cataract of left eye (Resolved) Nuclear sclerotic cataract of right eye (Resolved) Pelvic pain in female (Resolved 03/01/16) Pneumonia, organism unspecified (Resolved) Posterior subcapsular age-related cataract of left eye (Resolved) Posterior subcapsular age-related cataract, right eye (Resolved) Surgical History Status post cataract extraction and insertion of intraocular lens of left eye (Chronic 08/10/18) Status post cataract extraction and insertion of intraocular lens of right eye (Chronic 07/27/18) H/O esophagogastroduodenoscopy (Resolved) H/O shoulder replacement (Resolved) Colonoscopy - MAC Dilation and curettage (03/31/16) EGD - MAC (05/15/14) Hysteroscopy (03/31/16) SHOULDER REPLACEMENT Social History/Home Situation: Pt lives in a private home with her with 3 stairs to enter with (B) railings. She has a walk in shower and is (I) at baseline with all ADLs/IADLs. 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 Equipment owned/DME: shower bench, cane, FWW, 4WW, grab bars, raised toilet seat SUBJECTIVE: Pt was sitting in her bed when OT arrived. She was moving from side to side reporting that she had a lot of pain today. Pt is agreeable to OT consult. She states that she is familiar with OT services [place] [facility] [place] but states that she is more interested in adaptive equipment as she has her to help her when she needs it. OBJECTIVE: General Observation: Constantly moving legs throughout whole OT consult, anxious, dressing over incision of (R) hip, pleasant Mental Status: A&O x3 Pain: c/o pain with bed mobility for (R) hip, no c/o shoulder pain. ROM: RUE AROM WNL L UE AROM WNL does report she has a rotator cuff issue (Chronic) doesn't c/o pain when testing shoulder flexion. STRENGTH: RUE 5/5 throughout globally LUE 5/5 throughout globally FUNCTIONAL MOBILITY/ADLS: BATHING Performed prior to OT arrival. Pt reports that nursing set it up and she was able to perform this (I) DRESSING Dressing LE Pt was trained in use of sock aid, bingo caller and dressing hook for LE dressing. She was able to demonstrate with good technique. She has a leg special effects artist which she states helps with bed mobility but she is in so much pain that it is not helpful at this time. GROOMING (I) in sitting per pt report which she performed prior to OT arrival. EATING (I) BALANCE: Static sitting Normal Dynamic Sitting Normal Static Standing NT pt denies d/t pain Dynamic Standing NT pt denies d/t pain SPECIAL TESTS: Daily Activity Limitations Standardized Measure [facility] AM -PAC ?6 clicks? Daily Activity Inpatient Short Form: Raw score: 22 Standardized score: 47.10 CMS score: 25.80% INFORMED CONSENT/EDUCATION: Pt instructed in purpose of OT Consult and plan of care. ASSESSMENT: Patient is a 73-year-old female referred to occupational therapy services with diagnosis of a closed comminuted intertrochanteric fracture of the right femur and is status post ORIF using an intramedullary nail. Patient presents with clinical signs and symptoms consistent with dx, as demonstrated by the following impairment level findings/functional limitations: Decreased bed mobility, pain in (R) hip, decreased (I) in ADLs d/t pain, pain when performing LE dressing. Pt states that her will help her with all her ADLs at home. She denies the need for OT services but was receptive to training in adaptive equipment to increase the (I) in her ADLs when she does return home. OT recommends that pt return home with PT services. AMPAC score 22. CMS score 25.80% Patient is assessed as a Moderate 12345 complexity based on the following: History: See Above Examination: See Above Presentation: Evolving Decision Making: AMPAC score 22, CMS score 25.80% GOALS N/A PLAN OF CARE/TREATMENT PLAN: OT consult only. DISCHARGE RECOMMENDATIONS OT recommends that pt return home with with HH PT services when medically cleared per MD. TREATMENT TIME/MINUTES/CODES 17192, 22 minutes (09:00) [facility]
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
--- NOTE | 2018-11-26 11:31 | INDS_ITS ---
Date of service: 11/26/18 Time of Service: 10:56 PT Notes Inpatient Physical Therapy Discharge Summary Dates: 11/26/2018 Dates of Service: 11/23/2018 through 11/26/2018 Referring Doctor: Greyson Benítez MD PT Orders: PT CONSULT: Status post IMN for right hip fracture. WBAT with assistive devices. Precautions: Fall. Standard. WBAT on right LE with FWW. Patient Profile/Admitting Diagnosis: Patient is a 73-year-old female who presented to the ED on 11/20/2018 due to a fall on wet leaves on her way out of the house and sustained a closed comminuted intertrochanteric fracture of the right femur and is status post ORIF using an intramedullary nail on postoperative day 4. 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) Mild intermittent asthma with acute exacerbation (Chronic 07/07/15) Microscopic hematuria (Chronic 09/11/15) Low back pain (Chronic 07/29/08) Irritable bowel syndrome with constipation (Chronic 09/18/17) Impaired renal function disorder (Chronic 09/12/12) Idiopathic peripheral neuropathy (Chronic) Hypothyroidism (Chronic 06/10/08) Hypercholesterolemia (Chronic) Hoarseness (Chronic 12/25/14) 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) Gastroparesis (Chronic) Endometrial polyp (Chronic 04/14/16) Endometrial mass (Chronic 03/07/16) Cough (Chronic) Congestion of both ears (Chronic 01/24/18) Chronic sinusitis (Chronic 02/25/13) Bloating (Chronic 09/18/17) Bipolar disorder (Chronic) Arthritis (Chronic) Alcohol abuse (Resolved) Closed fracture of lower leg (Resolved) Diarrhea (Resolved 02/20/18) Goiter (Resolved) Labial burning (Resolved 06/30/15) Nuclear sclerotic cataract of left eye (Resolved) Nuclear sclerotic cataract of right eye (Resolved) Pelvic pain in female (Resolved 03/01/16) Pneumonia, organism unspecified (Resolved) Posterior subcapsular age-related cataract of left eye (Resolved) Posterior subcapsular age-related cataract, right eye (Resolved) Surgical History Status post cataract extraction and insertion of intraocular lens of left eye (Chronic 08/10/18) Status post cataract extraction and insertion of intraocular lens of right eye (Chronic 07/27/18) H/O esophagogastroduodenoscopy (Resolved) H/O shoulder replacement (Resolved) Colonoscopy - MAC Dilation and curettage (03/31/16) EGD - MAC (05/15/14) Hysteroscopy (03/31/16) SHOULDER REPLACEMENT Social History/Home Situation: Patient lives with in a 1 floor house with 4 steps to enter leading onto a porch, rails on both sides. She states that she was independent with all aspects of ADLs without the need for use of an assistive device nor an adaptive equipment. She still drives. Current Functional Limitations: Need for physical assist during all bed mobility, transfers, and ambulation task performance Equipment Owned/DME: Walk-in type shower, raised toilet seat, shower bench, grab bars, FWW, cane Subjective: Patient pleasant and cooperative, agreeable to a PT consult today. She reports pain on her right hip at rest and with movement. She denies dizziness, headache, and chest discomfort throughout session. Objective: General Observation: Patient seen resting in bed. IV off in the right UE. Anti-DVT pump off.. Surgical dressings on right lateral hip and knee seen. Mental Status: Alert and oriented x3 Pain: 0/10 on the right hip and knee at rest and 6/10 with weightbearing ROM: Right Upper Extremity: Shoulder Flexion WFL. Shoulder abduction WFL. Elbow flexion WFL. Wrist flexion WFL. Functional opening and closing of hand WFL. Left Upper Extremity: Shoulder Flexion WFL. Shoulder abduction WFL. Elbow flexion WFL. Wrist flexion WFL. Functional opening and closing of hand WFL. Right Lower Extremity: Hip flexion 0-30 with AAROM while in supine with discomfort at end range. Hip abduction 0-5 with AAROM with discomfort at end range. Knee flexion 0-45 with AROM in supine with discomfort at end range. Knee extension, patient able to assume full extension in supine without discomfort. Ankle dorsiflexion WFL. Ankle plantarflexion WFL. Left Lower Extremity: Hip flexion WFL. Hip abduction WFL. Knee flexion WFL. Ankle dorsiflexion WFL. Ankle plantarflexion WFL. Strength: Right Upper Extremity: Shoulder flexors 5/5. Shoulder abductors 5/5. Elbow fle xors 5/5. Elbow extensors 5/5. Administration Vice President strong. Left Upper Extremity: Shoulder flexors 5/5. Shoulder abductors 5/5. Elbow flexors 5/5. Elbow extensors 5/5. Administration Vice President strong. Right Lower Extremity: Hip flexors 3-/5. Hip abductors 3-/5. Knee flexors 3-/5. Knee extensors 3-/5. Ankle dorsiflexors 5/5. Ankle plantarflexors 5/5. Left Lower Extremity:Hip flexors 4/5. Hip abductors 4/5. Knee flexors 4-5. Knee extensors 4-5. Ankle dorsiflexors 4/5. Ankle plantarflexors 4/5. Sensation: Intact as to pain and pressure on BLE Bed Mobility/Transfers: Rolling S Supine to sit S Sit to supine S Sit to stand SBA with FWW Stand to sit SBA with FWW Bed to chair SBA with FWW Chair to bed SBA with FWW Gait: Patient was able to tolerate level surface ambulation of 150 feet forward using FWW with SBA. Does not report any dizziness, headache, and chest discomfort during activity. Patient did say that pain level with weightbearing is staying at 6/10. Step-to gait pattern is still observed. Balance: Static Sitting: Good Dynamic Sitting: Good Static Standing: Fair Dynamic Standing: Fair Special Tests: Mobility Limitations Standardized Measure [facility]-PAC 6 clicks Basic Mobility Inpatient Short Form: Raw Score: 21 CMS Score: 29% deficit Assessment: Patient is a 73-year-old female with closed comminuted intertrochanteric fracture of the right femur and is status post ORIF using an intramedullary nail on postoperative day 4. Patient presents with clinical signs and symptoms consistent with current/admitting diagnoses that have resulted to mobility limitations, gait instability, generalized weakness, and impairment of motor control as demonstrated by the following impairment level findings: 1. Decreased strength to R LE major muscle groups 2. Impaired sitting/standing balance 3. Impaired activity tolerance 4. Limitation of joint range of motion in right hip and knee joints Impairments are contributing to the following functional limitations: 1. Dependent bed mobility skills 2. Increased dependence with transfers 3. Inability to safely ambulate without assistive device and physical assistance 4. Increase completion time for mobility ADL performance 5. Increased fall risk 6. Inability to negotiate steps alone safely Goals: Goals X1 week 1. Supine-Sit independent NOT MET 2. Sit-Supine independent NOT MET 3. Sit-Stand independent NOT MET 4. Stand-Sit independent NOT MET 5. Bed-Chair independent NOT MET 6. Chair-Bed independent NOT MET 7. Independent gait on level surface with use of least restrictive device for at least 300 feet without report of pain NOT MET 8. Independent stair negotiation while holding onto bilateral rails for at least 5 steps without report of pain NOT MET 9. Independent with home exercise program NOT MET 10. Good static and dynamic standing balance/tolerance NOT MET DISCHARGE RECOMMENDATIONS: Patient will benefit from home health PT and OT services in order to maximize mobility level, assess home safety, progress assistive device use, and reduce fall risk at home. No equipment needs at this time. TREATMENT CODE/TIME: 15995 23 minutes beginning at 10:56 AM. Thank you for this referral. Kimmy Sapp, PT, DPT, CLT [facility]
--- NOTE | 2018-11-26 12:12 | W.PM.PROGNOT ---
Date of Service Date of service: 11/26/18 Time of Service: 12:12 Assessment and Plan (1) Closed intertrochanteric fracture of right femur: Current visit: Yes Status: Acute Lisseth is postop day #4 status post intramedullary nail fixation of her right femur fracture. I have encouraged her to be more regular with her pain medication. She should take 1000 mg of acetaminophen every 8 hours as needed for pain. I also think she may benefit from an anti-inflammatory. While she cannot take ibuprofen and it can cause some bleeding issues with her Eliquis, I think it be very beneficial. I would recommend meloxicam either 15 mg a day or 7.5 mg daily. She should also take the oxycodone as needed. I also reviewed using ice and heat to the right leg. She will continue with frequent short walks at home. She will work on exercises given her to physical therapy. Home health physical therapy would also be of benefit given her significant gait abnormalities and weakness. I will see her back in 2 weeks. Weightbearing as tolerated with a walker. Qualifiers: Encounter type: initial encounter Fracture alignment: displaced Qualified Code(s): S72.141A - Displaced intertrochanteric fracture of right femur, initial encounter for closed fracture Subjective Interval history since last seen: Archana continues to make good progress with physical therapy. She continues to have significant pain though. Her use of pain medication the last 24 hours a little bit haphazard and I have encouraged her when she goes home to be more regular with the pain medications. She denies any new symptoms. She denies any numbness or tingling. No chest pain or shortness of breath. Exam Narrative Exam Narrative: Right lower extremity is swollen. There is ecchymosis. Dressings are clean dry and intact. She tolerates some internal and external rotation of the hip without any significant pain. Objective Objective Clinical Data: Abnormal lab results 11/26/18 Range/Units 08:00 RBC 2.59 L (4.00-5.20) m/cumm Hgb 8.4 L (12.0-15.5) g/dL Hct 25.4 L (36.0-46.0) % MCV 98.1 H (80-95) fL Absolute Lymphocytes 0.78 L (1.2-3.4) k/cumm Vital Signs Temperature 37.0 C 11/26/18 07:13 Temperature Source Tympanic 11/26/18 07:13 Pulse 90 11/26/18 07:13 Pulse Rhythm Regular 11/26/18 07:59 Respiratory Rate 19 11/26/18 07:13 Respiratory Effort Non-Labored 11/26/18 07:59 Respiratory Depth Normal 11/26/18 07:59 Respiratory Pattern Normal 11/26/18 07:59 Blood Pressure 125/64 11/26/18 07:13 Blood Pressure Mean 73 11/20/18 16:31 Blood Pressure Position Sitting 11/20/18 15:36 Pulse Oximetry 95 11/26/18 07:13 Respiratory End-tidal CO2 33 11/22/18 15:00 Oxygen Delivery Method Room Air 11/26/18 07:13 Oxygen Flow Rate 0 11/26/18 07:13 Pain Level 6 11/26/18 11:38 Comment 11/22/18 03:38 Intake & Output 11/25/18 11/26/18 11/26/18 23:59 11:59 23:59 Intake Total 1620 / 2070 660 / 660 Output Total 550 / 1050 400 / 400 Balance 1070 / 1020 260 / 260 Intake: IV 30 / 240 Oral 1590 / 1830 660 / 660 Output: Urine 550 / 1050 400 / 400 Other: Urine Color Straw Yellow Urine Appearance Clear Clear Urine Odor Normal Stool Size Copious Stool Characteristics Soft Liquid Brown Voiding Methods Bedside Commode Bedside Commode Laboratory Results WBC 5.78 k/cumm (4.4-10.8) 11/26/18 08:00 RBC 2.59 m/cumm (4.00-5.20) L 11/26/18 08:00 Hgb 8.4 g/dL (12.0-15.5) L 11/26/18 08:00 Hct 25.4 % (36.0-46.0) L 11/26/18 08:00 MCV 98.1 fL (80-95) H 11/26/18 08:00 MCH 32.4 pg (27.0-33.0) 11/26/18 08:00 MCHC 33.1 g/dL (32.0-36.0) 11/26/18 08:00 RDW 12.1 % (11.7-14.6) 11/26/18 08:00 Plt Count 209 x1000/uL (130-400) 11/26/18 08:00 MPV 9.8 fL (8.0-11.0) 11/26/18 08:00 Immature Gran % 0.2 11/26/18 08:00 Neutrophils % 68.7 11/26/18 08:00 Lymphocytes % 13.5 11/26/18 08:00 Monocytes % 10.0 11/26/18 08:00 Eosinophils % 6.7 11/26/18 08:00 Basophils % 0.9 11/26/18 08:00 Absolute Neutrophils 3.97 k/cumm (1.2-6.7) 11/26/18 08:00 Absolute Lymphocytes 0.78 k/cumm (1.2-3.4) L 11/26/18 08:00 Absolute Monocytes 0.58 k/cumm (0.11-0.7) 11/26/18 08:00 Absolute Eosinophils 0.39 k/cumm (0.0-0.7) 11/26/18 08:00 Absolute Basophils 0.05 k/cumm (0.0-0.2) 11/26/18 08:00 PT 9.6 sec (9.3-11.0) 11/20/18 16:00 INR 1.0 (0.9-1.1) 11/20/18 16:00 APTT 24.5 sec (21.0-31.4) 11/20/18 16:00 Sodium 136 mmol/L (136-145) 11/26/18 08:00 Potassium 4.4 mmol/L (3.5-5.1) 11/26/18 08:00 Chloride 100 mmol/L (98-107) 11/26/18 08:00 Carbon Dioxide 25.8 mmol/L (21.0-32.0) 11/26/18 08:00 Anion Gap 10.2 mmol/L (3-11) 11/26/18 08:00 BUN 12 mg/dL (7-18) 11/26/18 08:00 Creatinine 0.94 mg/dL (0.55-1.02) 11/26/18 08:00 Estimated GFR/1.73 m2 58.53 (mL/min/1.73m2) 11/26/18 08:00 Glucose 91 mg/dL (70-100) 11/26/18 08:00 Calcium 8.5 mg/dL (8.5-10.1) 11/26/18 08:00 Magnesium 2.0 mg/dL (1.8-2.4) 11/26/18 08:00 Total Bilirubin 0.3 mg/dL (0.2-1.0) 11/20/18 16:00 AST 15 U/L (15-37) 11/20/18 16:00 ALT 24 U/L (12-78) 11/20/18 16:00 Alkaline Phosphatase 96 U/L (46-116) 11/20/18 16:00 Troponin I < 0.02 ng/mL (0.00-0.06) 11/20/18 16:00 Total Protein 7.1 g/dL (6.4-8.2) 11/20/18 16:00 Albumin 3.9 g/dL (3.4-5.0) 11/20/18 16:00 25-OH Vitamin D Total 57.5 ng/ml (30-100) 11/22/18 06:50 TSH 0.70 uIU/mL (0.358-3.74) 11/21/18 10:12 Patient ABO/Rh O Positive 11/20/18 16:00 Antibody Screen Negative 11/20/18 16:00
--- NOTE | 2018-11-26 12:23 | PDOC.CMDIS ---
- If Service Date Differs Date of service: 11/26/18 Time of Service: 12:23 LACE Index Scoring Tool - Questions: Length of Stay (in days): 4 - 6 Acuity (Admit via E.D.?): Yes E.D. Visits: 3 - Answers: Total Score: 10 Risk of Readmission: High Risk Care Management Discharge Reason for Hospitalization: Fractured right Hip Discharge Plan: Lisseth will be discharged home with home health services for PT and OT. CM contacted agency to provide update on referral. Lisseth states she is ready to return home she is restless and reports feeling some anxiety about the transition home. She is not able to articulate any particular concern. She has her own equipment and a plan to manage her pain. Archana's spouse Se is at the bedside he feels that he will be able to provide her support at home. Patient/Family Education Needs: Discharge education, limitations and follow up plan of care. CM reviewed risk of medicaitons including constipation and treatment. Services Needed at Discharge: Home Health Care Services, Occupational Therapy, Physical Therapy
--- NOTE | 2018-11-27 11:17 | HHF2F_ITS ---
1. Encounter Date and Reason I certify that TIFFANIE QUINTANILLA was seen by Dio Gary on 11/27/18 and that I had a [id number] encounter with this patient that meets the physician face to face encounter requirements. 2. Clinical Findings Supporting Skilled Need and Homebound Status I certify that home health services are medically necessary, include either intermittent residential and/or physical/speech therapy, and that this patient is homebound in that absences from the home require considerable and taxing effort and are infrequent or of short duration, or are attributable to the need to receive medical care. [X] (a) Attached documentation from encounter provides clinical findings supporting skilled need and homebound status (including what assistance patient requires to leave the home). The encounter with the patient was in whole, or in part, for the following medical condition, which is the primary reason for home health care: HIP FRACTURE Detention: Physical Therapy/Occupational Therapy: Hip Fracture s/p ORIF. Need for home PT/OT. Speech Therapy: Homebound: 3. Certification and Authentication I certify that I composed the above information based on my clinical judgement relating to this patient's medical condition and, if applicable, clinical findings communicated to me by the NPP or inpatient physician who performed the Home Health Referral. All further orders will be obtained through (Community Based Physician - PCP)
== END 2018-11-26 13:45 | disposition home or self-care (01) | DRG 481 ==
LOC: ER 16:36 → MS 20:14
PROVIDERS: Internal Medicine; Nurse Practitioner Family; Student in an Organized Health Care Education/Training Program; Admitting Provider General Practice; Emergency Provider Physician Assistant; PCP Family Medicine; Visit Provider Internal Medicine
PROC: 0QS606Z Reposition Right Upper Femur with Intramedullary Internal Fixation Device, Open Approach (ICD-10-PCS; CPT 27245; principal; 2018-11-22 13:30)
DX: S72.141A Displaced intertrochanteric fracture of right femur, initial encounter for closed fracture (principal); I48.92 Unspecified atrial flutter; M25.551 Pain in right hip; M25.511 Pain in right shoulder; K21.9 Gastro-esophageal reflux disease without esophagitis; K58.1 Irritable bowel syndrome with constipation; E03.9 Hypothyroidism, unspecified; F31.9 Bipolar disorder, unspecified; I48.0 Paroxysmal atrial fibrillation; Z79.01 Long term (current) use of anticoagulants; Z96.611 Presence of right artificial shoulder joint; S46.011A Strain of muscle(s) and tendon(s) of the rotator cuff of right shoulder, initial encounter; W01.0XXA Fall on same level from slipping, tripping and stumbling without subsequent striking against object, initial encounter
CPT/HCPCS: 27245; 36415; 51702; 76000; 80048; 80053; 82306; 86850; 86900; 86901; 93005; 94640; 96374; 96375; 97110; 97162; 97166; 97530; 99213; 99222; 99231; 99232; 99233; 99239; 99253; 99285; NC; 71045; 73030; 73501; 73502; 83735; 84443; 84484; 85025; 85610; 85730; 93010; 99284; J0131; J0690; J1100; J1790; J1885; J2405; J3475

== ENCOUNTER → 2018-11-21 07:00 | Outpatient (BNVA) | payer MEDICARE, BC, SELFPAY | PROVIDERS: PCP Family Medicine; Referring Provider Family Medicine; Visit Provider Student in an Organized Health Care Education/Training Program | DX: R69 Illness, unspecified (principal) ==

== ENCOUNTER → 2018-11-22 08:14 | Outpatient (BNVA) | payer MEDICARE, BC, SELFPAY | PROVIDERS: PCP Family Medicine; Referring Provider Family Medicine; Visit Provider Student in an Organized Health Care Education/Training Program | DX: R69 Illness, unspecified (principal) ==

== ENCOUNTER 2018-12-12 13:22 | Outpatient (CLI) | payer MEDICARE, BC, SELFPAY ==
--- NOTE | 2018-12-12 13:19 | DI.RAD_ITS ---
SYMPTOMS/DIAGNOSIS: RIGHT OPEN REDUCTION AND INTERNAL FIXATION OF HIP RIGHT FEMUR: The patient is status post fixation of an intertrochanteric fracture with a gamma nail and intramedullary helene. The fracture fragments remain in good position, unchanged when compared with the previous images.
== END 2018-12-12 13:42 ==
PROVIDERS: PCP Family Medicine; Referring Provider Family Medicine; Visit Provider Student in an Organized Health Care Education/Training Program
DX: S72.141D Displaced intertrochanteric fracture of right femur, subsequent encounter for closed fracture with routine healing (principal); W01.0XXD Fall on same level from slipping, tripping and stumbling without subsequent striking against object, subsequent encounter
CPT/HCPCS: 73552

== ENCOUNTER 2019-01-07 13:24 | Outpatient (CLI) | payer MEDICARE, BC, SELFPAY ==
--- NOTE | 2019-01-07 13:14 | DI.RAD_ITS ---
SYMPTOM/DIAGNOSIS: F/U RT FEMUR IMB RIGHT HIP: Comparison is made with 12/12/18. There has been no change in the fracture or hardware alignment. There has been some interval healing at the intertrochanteric fracture.
== END 2019-01-07 13:44 ==
PROVIDERS: PCP Family Medicine; Referring Provider Family Medicine; Visit Provider Student in an Organized Health Care Education/Training Program
DX: S72.141A Displaced intertrochanteric fracture of right femur, initial encounter for closed fracture (principal); X58.XXXA Exposure to other specified factors, initial encounter
CPT/HCPCS: 73502

== ENCOUNTER 2019-02-04 14:45 | Outpatient (CLI) | payer MEDICARE, BC, SELFPAY ==
--- NOTE | 2019-02-04 13:04 | DI.RAD_ITS ---
SYMPTOM/DIAGNOSIS: S/P IM NAILING FEMUR RIGHT FEMUR: Four views. Comparison 12/12/18 There is again seen an intramedullary helene transfixing the intertrochanteric fracture of the right femur. No change in alignment to the orthopaedic hardware or fracture components seen. The fracture line is still visualized suggesting incomplete healing.
== END 2019-02-04 15:05 ==
PROVIDERS: PCP Family Medicine; Referring Provider Family Medicine; Visit Provider Student in an Organized Health Care Education/Training Program
DX: S72.141G Displaced intertrochanteric fracture of right femur, subsequent encounter for closed fracture with delayed healing (principal); X58.XXXD Exposure to other specified factors, subsequent encounter; M25.551 Pain in right hip
CPT/HCPCS: 20610; 73552; J1040

== ENCOUNTER 2019-02-22 16:11 | Outpatient (REF) | payer MEDICARE, BC, SELFPAY | END 2019-02-22 16:31 | LOC: NCHCN 16:11 | PROVIDERS: PCP Family Medicine; Visit Provider Nurse Practitioner | DX: R30.0 Dysuria (principal) | CPT/HCPCS: 87086 ==

== ENCOUNTER 2019-02-25 15:41 | Outpatient (CLI) | payer MEDICARE, BC, SELFPAY ==
[2019-02-25 17:18] LABS: TSH (W/Ref FT4) 0.19 uIU/mL (0.36-3.74)
[2019-02-25 17:38] LABS: FREE T4 1.07 ng/dL (0.76-1.46)
== END 2019-02-25 16:01 ==
PROVIDERS: PCP Family Medicine; Visit Provider Family Medicine
DX: E03.9 Hypothyroidism, unspecified (principal); K58.1 Irritable bowel syndrome with constipation
CPT/HCPCS: 36415; 84439; 84443

== ENCOUNTER 2019-03-13 15:18 | Outpatient (CLI) | payer MEDICARE, BC, SELFPAY ==
--- NOTE | 2019-03-13 11:10 | DI.RAD_ITS ---
SYMPTOMS/DIAGNOSIS: F/U FRACTURE RIGHT FEMUR: Four views. There has been no change in alignment of the fracture fragments or the intramedullary helene transfixing the intertrochanteric fracture of the proximal right femur. No new fracture or dislocation is present.
== END 2019-03-13 15:38 ==
PROVIDERS: PCP Family Medicine; Referring Provider Family Medicine; Visit Provider Student in an Organized Health Care Education/Training Program
DX: S72.141A Displaced intertrochanteric fracture of right femur, initial encounter for closed fracture (principal); X58.XXXA Exposure to other specified factors, initial encounter; Z98.890 Other specified postprocedural states
CPT/HCPCS: 73552; 99213

== ENCOUNTER 2019-04-03 13:56 | Outpatient (REF) | payer MEDICARE, BC, SELFPAY | END 2019-04-03 14:16 | LOC: LBN 13:56 | PROVIDERS: PCP Family Medicine; Visit Provider Nurse Practitioner Women's Health | DX: R30.0 Dysuria (principal) | CPT/HCPCS: 87077; 87086; 87186 ==

== ENCOUNTER 2019-04-22 10:59 | Outpatient (CLI) | payer MEDICARE, BC, SELFPAY ==
--- NOTE | 2019-04-22 10:55 | DI.RAD_ITS ---
EXAM: XR HIP RT AP LAT ONLY INDICATION: F/U FRACTURE. COMPARISON: XR hip RT AP lat only from 01/07/2019 TECHNIQUE: 2D digital imaging was performed. FINDINGS: Two views were obtained and show gamma nail in place transfixing intertrochanteric fracture of the fe mur. Alignment appears unchanged in comparison with previous examination of January 07. IMPRESSION:
== END 2019-04-22 11:19 ==
PROVIDERS: PCP Family Medicine; Referring Provider Family Medicine; Visit Provider Student in an Organized Health Care Education/Training Program
DX: S72.141D Displaced intertrochanteric fracture of right femur, subsequent encounter for closed fracture with routine healing (principal); X58.XXXD Exposure to other specified factors, subsequent encounter
CPT/HCPCS: 99213; 73502

== ENCOUNTER 2019-05-30 01:38 | Outpatient (CLI) | payer MEDICARE, BC, SELFPAY ==
--- NOTE | 2019-05-30 12:30 | DI.MAMMO_ITS ---
EXAM: MG MAMMO SCREENING CLINICAL HISTORY: screening,Z12.39 TECHNIQUE: Mammograms were interpreted according to the usual protocol including computer analysis w [place] CAD system, tomosynthesis and C-view imaging. COMPARISON: [id number] FINDINGS: The breasts are composed of heterogeneously dense tissue, breast density category C. There are no do minant masses or microcalcifications. There has been no significant interval change in comparison wi th the previous exams. IMPRESSION: Category 1, negative mammogram. Routine yearly screening mammograms are recommended. BI-RADS Cat 1 - Negative Breast Density - Category C - Heterogeneously dense
== END 2019-05-30 01:58 ==
PROVIDERS: PCP Family Medicine; Visit Provider Obstetrics & Gynecology Gynecology
DX: Z12.31 Encounter for screening mammogram for malignant neoplasm of breast (principal)
CPT/HCPCS: 77063; 77067

== ENCOUNTER 2019-06-24 09:12 | Outpatient (CLI) | payer MEDICARE, BC, SELFPAY | END 2019-06-24 09:32 | PROVIDERS: PCP Family Medicine; Visit Provider Family Medicine | DX: F32.9 Major depressive disorder, single episode, unspecified (principal) | CPT/HCPCS: 36415; 84439; 84443 ==

== ENCOUNTER 2019-09-23 11:09 | Outpatient (CLI) | payer MEDICARE, BC, SELFPAY ==
[2019-09-23 13:46] LABS: FREE T4 1.15 ng/dL (0.76-1.46)
== END 2019-09-23 11:29 ==
PROVIDERS: PCP Family Medicine; Visit Provider Family Medicine
DX: E03.9 Hypothyroidism, unspecified (principal)
CPT/HCPCS: 36415; 84439; 84443

== ENCOUNTER 2019-09-24 14:23 | Outpatient (CLI) | payer MEDICARE, BC, SELFPAY ==
[2019-09-24 14:56] LABS: Abs Immature Grans 0.01 k/cumm (0.0-0.09); Absolute Basophil Count 0.04 k/cumm (0.0-0.2); Absolute Eosinophil Count 0.14 k/cumm (0.0-0.7); Absolute Lymphocyte Count 1.23 k/cumm (1.2-3.4); Absolute Neutrophil Count 3.26 k/cumm (1.2-6.7); Basophils % 0.8; Eosinophils % 2.7; HCT 37.5 % (36.0-46.0); HGB 12.1 g/dL (12.0-15.5); Immature Grans % 0.2 %; Lymphocytes % 23.3; Mean Corp. HGB Concentration 32.3 g/dL (32.0-36.0); Mean Corpuscular Hemoglobin 31.7 pg (27.0-33.0); Mean Corpuscular Volume 98.2 fL (80-95); Mean Platelet Volume 9.7 fL (8.0-11.0); Monocytes % 11.4; Neutrophils % 61.6; Platelet Count 255 x1000/uL (130-400); RBC 3.82 m/cumm (4.00-5.20); RBC Distribution Width 12.8 % (11.7-14.6); White Blood Cell Count 5.28 k/cumm (4.4-10.8)
[2019-09-24 16:19] LABS: Ferritin 61 ng/mL (8-252)
== END 2019-09-24 14:43 ==
PROVIDERS: PCP Family Medicine; Visit Provider Nurse Practitioner
DX: D64.9 Anemia, unspecified (principal)
CPT/HCPCS: 36415; 82728; 85025

== ENCOUNTER 2019-12-16 14:55 | Outpatient (CLI) | payer MEDICARE, BC, SELFPAY ==
--- NOTE | 2019-12-16 14:15 | DI.RAD_ITS ---
EXAM: XR HIP RT COMPLETE AP PELVIS CLINICAL HISTORY: eval R hip pain TECHNIQUE: COMPARISON: CR XR HIP RT AP LAT ONLY from 04/22/2019 FINDINGS: Views were obtained and show previously described intertrochanteric fracture of the right femur with gamma nail fixation, no gross interval change in alignment in comparison with examination of April 2019. IMPRESSION:
--- NOTE | 2019-12-16 14:45 | DI.RAD_ITS ---
EXAM: XR LUMBAR SPINE AP, LAT CLINICAL HISTORY: LOWER BACK PAIN TECHNIQUE: Three views were obtained. COMPARISON: CR LUMBAR SPINE COMPLETE from 07/25/2008 FINDINGS: Fecal material overlies the spine on the lateral view. There is a mild right convex lumbar scoliosis . There are mild degenerative changes of both SI joints. There are prominent hypertrophic vertebral endplate changes at L3-4 on the left. Mild hypertrophic endplate changes seen throughout the remain mauricio of the lumbar spine. Moderate facet hypertrophic degenerative changes also noted in the lower francis mbar spine. No evidence of compression fracture. Multilevel disc space loss of height noted consist ent with disc degeneration. IMPRESSION: Degenerative changes as described above.
== END 2019-12-16 15:15 ==
PROVIDERS: PCP Family Medicine; Referring Provider Family Medicine; Visit Provider Student in an Organized Health Care Education/Training Program
DX: M25.551 Pain in right hip (principal); M53.3 Sacrococcygeal disorders, not elsewhere classified; M51.36 Other intervertebral disc degeneration, lumbar region; M54.5 Low back pain
CPT/HCPCS: 20610; 99213; 72100; 73502; J1040

== ENCOUNTER 2019-12-23 02:19 | Outpatient (CLI) | payer MEDICARE, BC, SELFPAY ==
--- NOTE | 2019-12-23 10:45 | DI.MRI_ITS ---
EXAM: MR LUMBAR SPINE WO CLINICAL HISTORY: Lumbar radiculopathy, M54.16, pain. TECHNIQUE: Multiplanar multisequence MRI of the Lumbar spine was performed. COMPARISON: CR XR LUMBAR SPINE AP, LAT from 12/16/2019 FINDINGS: Bones: The last intervertebral disc space is designated the L5/S1 level for the numbering purpose of this examination. The vertebral body heights are well maintained. Alignment is satisfactory. The si gnal characteristics are unremarkable. Cord: The conus tip ends at the L1 level. It is of normal size and signal intensity. T12-L1: No disc herniations or bulges are present. No central spinal canal or neural foraminal stenos is. L1-2: There is mild protrusion of the disc laterally on the right causing mild right neural foraminal narrowing. No central spinal canal or left neural foraminal stenosis. L2-3: Mild asymmetric disc protrusion to the right. No central spinal canal or neural foraminal sten osis. L3-4: Mild left lateral disc protrusion. It causes moderate left neural foraminal narrowing. No patricia tral spinal canal or right neural foraminal stenosis. L4-5: Degenerative changes of the facets are present. There is an 8 x 6 mm cyst projecting into this central spinal canal that arises from the right facet joint. This results in [id number] centr al spinal canal stenosis. No neural foraminal stenosis. L5-S1: No disc herniations or bulges are present. No central spinal canal or neural foraminal stenosi s.There is facet joint hypertrophy present. Soft tissues: The visualized SI joints and sacrum are well maintained. The paraspinal soft tissues ar e unremarkable. IMPRESSION: 1. Degenerative changes at L4-L5 including a synovial cyst projecting into the spinal canal. These f indings result in moderate central spinal canal stenosis. 2. Multilevel degenerative changes in the lumbar spine resulting in multilevel neural foraminal steno sis as described above. DATA REPOSITORY:
== END 2019-12-23 02:39 ==
PROVIDERS: PCP Family Medicine; Visit Provider Student in an Organized Health Care Education/Training Program
DX: M54.16 Radiculopathy, lumbar region (principal); M54.5 Low back pain; M51.37 Other intervertebral disc degeneration, lumbosacral region; M48.061 Spinal stenosis, lumbar region without neurogenic claudication
CPT/HCPCS: 72148

== ENCOUNTER 2020-04-23 14:40 | Outpatient (CLI) | payer MEDICARE, BC, SELFPAY ==
[2020-04-23 16:06] LABS: ALT 26 U/L (14-59); AST 19 U/L (15-37); Albumin 3.8 g/dL (3.4-5.0); Alkaline Phosphatase 103 U/L (46-116); Anion Gap 9.3 mmol/L (3-11); BUN 20 mg/dL (7-18); Bilirubin, Total 0.4 mg/dL (0.2-1.0); CO2 27.7 mmol/L (21.0-32.0); CREATININE 1.48 mg/dL (0.55-1.02); Calcium 9.2 mg/dL (8.5-10.1); Calculated LDL 75 mg/dL (<100); Chloride 106 mmol/L (98-107); Cholesterol 165 mg/dL (<200); Estimated GFR 34.57 (mL/min/1.73m2); Glucose 117 mg/dL (74-106); HDL Cholesterol 68 mg/dL (40-60); Potassium 4.7 mmol/L (3.5-5.1); Sodium 143 mmol/L (136-145); TSH (W/Ref FT4) 0.03 uIU/mL (0.36-3.74); Total Protein 6.9 g/dL (6.4-8.2); Triglyceride 111 mg/dL (<150)
[2020-04-23 17:21] LABS: FREE T4 1.08 ng/dL (0.76-1.46)
== END 2020-04-23 15:00 ==
PROVIDERS: PCP Family Medicine; Visit Provider Family Medicine
DX: E78.00 Pure hypercholesterolemia, unspecified (principal); F31.9 Bipolar disorder, unspecified; K58.1 Irritable bowel syndrome with constipation; R63.5 Abnormal weight gain; M19.90 Unspecified osteoarthritis, unspecified site
CPT/HCPCS: 36415; 80053; 80061; 84439; 84443

== ENCOUNTER 2020-05-14 17:14 | Observation (INO) | payer MEDICARE, BC, SELFPAY ==
--- NOTE | 2020-05-14 17:15 | RT.EKG_ITS ---
APPROVED REPORT Exam: Resting ECG Patient Location: E HR:76 bpm ECG Measurements Heart Rate 76 AXIS [place] 163 P 35 QRSd 91 QRS 16 QT 371 T 54 QTc 418 Conclusion Sinus rhythm...normal P axis, V-rate 60- 99 Low voltage, precordial leads...precordial leads <1.0mV
[2020-05-14 17:22] VITALS: BP 143/78; PULSE 78; RESP 20; TEMP 36.5; O2SAT 97
[2020-05-14] MEDS: diazePAM 2 MG TAB PO (18:13)
[2020-05-14] MEDS: Meclizine 25 MG TAB PO (18:14)
[2020-05-14 19:36] LABS: ALT 19 U/L (14-59); AST 19 U/L (15-37); Albumin 3.4 g/dL (3.4-5.0); Alkaline Phosphatase 104 U/L (46-116); BUN 14 mg/dL (7-18); Bilirubin, Total 0.3 mg/dL (0.2-1.0); Calcium 9.2 mg/dL (8.5-10.1); Chloride 104 mmol/L (98-107); Estimated GFR 40.15 (mL/min/1.73m2); Glucose 105 mg/dL (74-106); Magnesium 2.1 mg/dL (1.8-2.4); Potassium 5.3 mmol/L (3.5-5.1); Sodium 137 mmol/L (136-145); TSH (W/Ref FT4) 0.03 uIU/mL (0.36-3.74); Total Protein 6.6 g/dL (6.4-8.2)
[2020-05-14 19:47] LABS: Troponin I < 0.05 ng/mL (<0.06)
[2020-05-14 20:03] LABS: FREE T4 1.08 ng/dL (0.76-1.46)
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
--- NOTE | 2020-05-14 21:45 | DI.CT_ITS ---
EXAM: CT BRAIN NECK CTA CLINICAL HISTORY: vertigo. TECHNIQUE: Imaging Protocol: Axial CT angiography was performed with multi-slice acquisition and mu lti-planar and/or 3D reconstructions. CONTRAST MATERIAL: Intravenous: Omnipaque 350 Contrast volume:structured data in ml COMPARISON: CT CT CHEST PE CTA from 10/14/2018 FINDINGS: CT angiography of the cervical cranial region was performed according to the usual protocol with intr avenous infusion of 100 cc of Omnipaque 350.. Initial noncontrast scanning of the head is unremarkable except for mild generalized cerebral atrophy .. Visualized lung apices are clear. Visualized portions of thoracic aorta and pulmonary arterial circul ation are unremarkable. There is no evidence of a cervical mass or adenopathy. The tracheal laryngeal structures appear intact. The common, internal, and external carotid arteries are within normal limits in the cervical region w ith no evidence of aneurysm, stenosis, or dissection. The vertebral arteries are unremarkable in appearance in the cervical region with no evidence of aneu rysm, stenosis, or dissection. Intracranial portions of the internal carotid arteries appear normal with no evidence of aneurysm, st enosis, or dissection. Intracranial vertebral arteries and basilar artery appear normal with no evidence of aneurysm, stenos is or dissection. No aneurysm identified in the region of the djcvsb-[id number]. The anterior, middle, and posterior cer ebral arteries and major branches appear intact with no evidence of aneurysm, stenosis, or dissection . No enhancing brain lesion identified. IMPRESSION: Negative CT angiography of the cervical cranial region. RADIATION DOSE DELIVERED: 1,111.36mGy.cmTotal DLP 1,111.36mGy.cm Total DLP DATA REPOSITORY: All CT scans at this facility are submitted to the National Radiology Data Registry (NRDR) Dose Index Registry (DIR) with the [employer] ([employer]). RADIATION OPTIMIZATION: All CT scans at this facility use at least one of these dose optimization te chniques: automated exposure control; mA and/or kV adjustment per patient size (includes targeted exa ms where dose is matched to clinical indication); or iterative reconstruction.
[2020-05-14] MEDS: Omnipaque 350 MG/ML 100 ML BTL 85 ML IJ (22:01)
[2020-05-14] MEDS: Normal Saline - Diluent 50 ML VIAL IV (22:02)
--- NOTE | 2020-05-14 22:05 | DI.RAD_ITS ---
EXAM: XR CHEST 2V PA LATERAL CLINICAL HISTORY: chest discomfort TECHNIQUE: 2D digital imaging was performed. COMPARISON: CR XR PORTABLE CHEST AP from 11/20/2018 FINDINGS: The heart is not enlarged. The lungs are clear and well expanded. No pleural effusion seen. Mediastin al contours appear intact. IMPRESSION: Normal chest. RADIATION DOSE DELIVERED: Total DLP
--- NOTE | 2020-05-14 22:08 | DI.VRAD_ITS ---
PROCEDURE INFORMATION: Exam: XR Chest, 2 Views Exam date and time: 05/14/2020 10:04 PM Age: 74 years old Clinical indication: Other: Chest discomfort TECHNIQUE: Imaging protocol: XR of the chest Views: 2 views. COMPARISON: SC XR PORTABLE CHEST AP 11/20/2018 5:40 PM FINDINGS: Lungs: Unremarkable. No consolidation. Pleural space: Unremarkable. No pleural effusion. No pneumothorax. Heart/Mediastinum: Unremarkable. No cardiomegaly. Bones/joints: Left shoulder prosthesis. IMPRESSION: No acute findings. Dictated and Authenticated by: Sánchez Smith MD. Ordering:CRISTINA Arce MD
[2020-05-14 22:49] VITALS: BP 142/67; PULSE 80; O2SAT 96
--- NOTE | 2020-05-14 22:51 | DI.VRAD_ITS ---
PROCEDURE INFORMATION: Exam: CT Angiography Head Without And With Contrast Exam date and time: 05/14/2020 9:48 PM Age: 74 years old Clinical indication: Vertigo TECHNIQUE: Imaging protocol: Computed tomographic angiography of the head without and with intravenous contrast. 3D rendering (Not supervised by radiologist): MIP and/or 3D reconstructed images were created by the technologist. Contrast material: OMNIPAQUE 350; Contrast volume: 95 ml; Contrast route: INTRAVENOUS (IV); COMPARISON: No relevant prior studies available. FINDINGS: ANTERIOR CIRCULATION: Right internal carotid artery: Intracranial segment is patent with no significant stenosis or occlusion. No aneurysm. Right middle cerebral artery: No occlusion or significant stenosis. No aneurysm. Right anterior cerebral artery: No occlusion or significant stenosis. No aneurysm. Left internal carotid artery: Intracranial segment is patent with no significant stenosis. No aneurysm. Left middle cerebral artery: No occlusion or significant stenosis. No aneurysm. Left anterior cerebral artery: No occlusion or significant stenosis. No aneurysm. POSTERIOR CIRCULATION: Right vertebral artery: No occlusion or significant stenosis. No aneurysm. Left vertebral artery: No occlusion or significant stenosis. No aneurysm. Basilar artery: No occlusion or significant stenosis. No aneurysm. Right posterior cerebral artery: No occlusion or significant stenosis. No aneurysm. Left posterior cerebral artery: No occlusion or significant stenosis. No aneurysm. HEAD: Brain: Unremarkable. No acute intracranial hemorrhage. No significant white matter disease. No edema. Cerebral ventricles: Normal. No ventriculomegaly. Bones/joints: Unremarkable. No acute fracture. Paranasal sinuses: Visualized sinuses are normal. No fluid levels. Mastoid air cells: Visualized mastoids are normal. No mastoid effusion. Soft tissues: Unremarkable. IMPRESSION: No large vessel occlusion. No acute intracranial finding. PROCEDURE INFORMATION: Exam: CT Angiography Neck With Contrast Exam date and time: 05/14/2020 9:48 PM Age: 74 years old Clinical indication: Vertigo TECHNIQUE: Imaging protocol: Computed tomography angiography of the neck with intravenous contrast. 3D rendering (Not supervised by radiologist): MIP and/or 3D reconstructed images were created by the technologist. Contrast material: OMNIPAQUE 350; Contrast route: INTRAVENOUS (IV); COMPARISON: No relevant prior studies available. FINDINGS: Right common carotid artery: No stenosis. No dissection or occlusion. Right internal carotid artery: No stenosis of the extracranial segment. No dissection or occlusion. Right external carotid artery: No occlusion or stenosis of the origin. Right vertebral artery: No stenosis. No dissection or occlusion. Left common carotid artery: No stenosis. No dissection or occlusion. Left internal carotid artery: No stenosis of the extracranial segment. No dissection or occlusion. Left external carotid artery: No occlusion or stenosis of the origin. Left vertebral artery: No stenosis. No dissection or occlusion. Retropharyngeal space: Within normal limits. Thyroid: No mass. Bones/joints: No acute fracture. Mild cervical spondylosis with degenerative disc changes noted most pronounced at the C5-C7 levels with mild intervertebral disc height loss. Soft tissues: Normal. No significant soft tissue swelling. Lymph nodes: No pathologically enlarged lymph nodes. IMPRESSION: No stenosis or occlusion. REFERENCES: NASCET CRITERIA. The degree of internal carotid artery stenosis is based on NASCET criteria. Normal is no stenosis. Mild is less than 50% stenosis. Moderate is 50-69% stenosis. Severe is 70% to 99% stenosis. Total occlusion is no detectable patent lumen. Dictated and Authenticated by: Endy Nuno MD. Ordering:CRISTINA Arce MD
[2020-05-14 22:58] LABS: Troponin I < 0.05 ng/mL (<0.06)
[2020-05-14] MEDS: Aspirin 325 MG TAB PO (23:44)
[2020-05-15] VITALS (7 sets, daily range): BP systolic 114–135; BP diastolic 71–83; PULSE 76–79; RESP 10–19; TEMP 36.1–36.8; O2SAT 91–97
[2020-05-15] MEDS: Apixaban 5 MG TAB PO ×2 (00:39→09:15)
[2020-05-15] MEDS: Meclizine 12.5 MG TAB PO (00:39)
[2020-05-15] MEDS: QUEtiapine 300 MG TAB PO (00:39)
[2020-05-15] MEDS: Normal Saline 1,000 ML 85 ML IV (00:51)
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
[2020-05-15] MEDS: Levothyroxine 112 MCG TAB PO (06:12)
[2020-05-15 07:05] LABS: Troponin I < 0.05 ng/mL (<0.06)
[2020-05-15] MEDS: Budesonide/Formoterol 160/4.5 6 GM 60 PUFF INH IH (07:45)
[2020-05-15] MEDS: buPROPion-XL 150 MG TABCR 300 MG PO (09:14)
[2020-05-15] MEDS: DULoxetine 30 MG CAP 60 MG PO (09:14)
[2020-05-15] MEDS: Gabapentin 600 MG TAB PO ×2 (09:15→14:23)
[2020-05-15] MEDS: Metoprolol CR 50 MG TABCR PO (09:15)
[2020-05-15] MEDS: Dexlansoprazole 30 MG CAP 60 MG PO (09:15)
[2020-05-15] MEDS: Multivitamin TAB 1 TAB PO (09:15)
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
[2020-05-15] MEDS: diazePAM 5 MG TAB PO (09:46)
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
[2020-05-15] MEDS: Normal Saline Flush 10 ML SYR IVP (10:40)
--- NOTE | 2020-05-15 10:40 | DI.MRI_ITS ---
EXAM: MR BRAIN WO CLINICAL HISTORY: vertigo TECHNIQUE: Multiplanar multisequence MRI of the brain was performed. COMPARISON: No exams were available for comparison FINDINGS: The ventricular system is normal in appearance. No signal abnormality identified in the brain except for couple of tiny focal areas of abnormal signa l in periventricular white matter consistent with early microvascular ischemic change, not unusual in this age group... The orbital and temporal bone structures appear intact as does the pituitary. Diffusion weighted imaging shows no evidence of infarction. Susceptibility weighted imaging shows no evidence of intracranial hemorrhage. There is normal flow void in the little traverse of Ramirez vasculature. IMPRESSION: No evidence of acute process. DATA REPOSITORY:
[2020-05-15] MEDS: Acetaminophen 325 MG TAB PO (11:57)
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
[2020-05-15 13:48] LABS: Troponin I < 0.05 ng/mL (<0.06)
--- NOTE | 2020-05-15 15:21 | PDOC.CMDIS ---
- If Service Date Differs Date of service: 05/15/20 Time of Service: 15:21 LACE Index Scoring Tool - Questions: Length of Stay (in days): 1 Acuity (Admit via E.D.?): Yes E.D. Visits: 1 - Answers: Total Score: 5 Risk of Readmission: Low Risk Care Management Discharge Reason for Hospitalization: Vertigo Discharge Plan: Lisseth will return home with no additional services. She will be driven home via private vehicle by family. She will follow up with her PCP and discharge plan of care. Patient/Family Education Needs: Review discharge instructions regarding activity levels and medications, discussion of self care needs including ask me three.
[2020-05-18 10:07] LABS: SARS-CoV-2 RNA Not Detected (NotDetected); SARS-CoV-2 RNA Source Nasal/Nares
[2020-05-19 12:06] LABS: T3,Free 2.9 pg/mL (2.8-5.3)
== END 2020-05-15 15:00 | disposition home or self-care (01) ==
LOC: ER 23:25 → MS 23:56
PROVIDERS: Nurse Practitioner Acute Care; Admitting Provider Internal Medicine; Emergency Provider Student in an Organized Health Care Education/Training Program; PCP Family Medicine; Visit Provider Internal Medicine
DX: R42 Dizziness and giddiness (principal); R07.89 Other chest pain; H53.2 Diplopia; E78.5 Hyperlipidemia, unspecified; F31.9 Bipolar disorder, unspecified; E78.00 Pure hypercholesterolemia, unspecified; E03.9 Hypothyroidism, unspecified; G60.8 Other hereditary and idiopathic neuropathies; K58.1 Irritable bowel syndrome with constipation; E87.5 Hyperkalemia
CPT/HCPCS: 36415; 70496; 70498; 80053; 93005; 94640; 97162; 99220; 99239; 99285; U0003; 70551; 71046; 83735; 84439; 84443; 84481; 84484; 85025; 93010; 99217; G0378; J3490

== ENCOUNTER 2020-08-14 01:53 | Outpatient (CLI) | payer MEDICARE, BC, SELFPAY ==
[2020-08-14 15:15] LABS: ALT 21 U/L (14-59); AST 17 U/L (15-37); Albumin 4.1 g/dL (3.4-5.0); Alkaline Phosphatase 110 U/L (46-116); Anion Gap 6.5 mmol/L (3-11); BUN 17 mg/dL (7-18); Bilirubin, Total 0.5 mg/dL (0.2-1.0); CO2 29.5 mmol/L (21.0-32.0); CREATININE 1.6 mg/dL (0.55-1.02); Calcium 9.7 mg/dL (8.5-10.1); Chloride 103 mmol/L (98-107); Glucose 113 mg/dL (74-106); Potassium 4.9 mmol/L (3.5-5.1); Sodium 139 mmol/L (136-145); TSH (W/Ref FT4) 0.12 uIU/mL (0.36-3.74); Total Protein 7.3 g/dL (6.4-8.2)
[2020-08-14 15:36] LABS: FREE T4 1.02 ng/dL (0.76-1.46)
[2020-08-17 10:20] LABS: Hepatitis C Ab w Rflx HCV PCR Negative (Negative)
== END 2020-08-14 02:13 ==
PROVIDERS: PCP Family Medicine; Visit Provider Family Medicine
DX: F31.9 Bipolar disorder, unspecified (principal); R42 Dizziness and giddiness; Z11.59 Encounter for screening for other viral diseases
CPT/HCPCS: 36415; 80053; 86803; 84439; 84443

== ENCOUNTER 2020-09-24 03:37 | Outpatient (CLI) | payer MEDICARE, BC, SELFPAY ==
[2020-09-24 14:35] LABS: Anion Gap 10.7 mmol/L (3-11); BUN 13 mg/dL (7-18); CO2 27.3 mmol/L (21.0-32.0); CREATININE 1.3 mg/dL (0.55-1.02); Calcium 9.4 mg/dL (8.5-10.1); Chloride 102 mmol/L (98-107); Estimated GFR 40.15 (mL/min/1.73m2); Glucose 107 mg/dL (74-106); Potassium 4.3 mmol/L (3.5-5.1); Sodium 140 mmol/L (136-145)
== END 2020-09-24 03:38 | disposition home or self-care (01) ==
LOC: LBO 03:37
PROVIDERS: PCP Family Medicine; Visit Provider Family Medicine
DX: R79.89 Other specified abnormal findings of blood chemistry (principal)
CPT/HCPCS: 80048

== ENCOUNTER 2021-01-14 03:03 | Outpatient (CLI) | payer MEDICARE, BC, SELFPAY ==
--- NOTE | 2021-01-14 08:15 | DI.MAMMO_ITS ---
Exam(s) MAMMO SCREENING EXAM: MAMMO SCREENING CLINICAL HISTORY: screening, Z12.39. TECHNIQUE: Bilateral full field digital CC and MLO mammographic images were obtained with 3D tomosyn thesis and utilizing computer aided detection (CAD). COMPARISON: Prior mammograms dating back to 2010, the most recent being May 2019. FINDINGS: Fibroglandular tissue is moderately dense, this somewhat decreasing the sensitivity mammogram for fin ding hidden underlying lesions. There are no new significant radiograph findings in left breast. Towards the lateral aspect of the right breast there is a new density measuring approximately 1.8 by 0 point 5 cm, approximately 10 cm in from the nipple, super peer early and superficial. This appears to contain microcalcifications.. Possibly represents a skin mole but nevertheless is more evident o n prior studies. Additional views of the right breast with skin mole marker in place recommended. There is no significant architectural distortion nor skin thickening-retraction. IMPRESSION: No radiographic evidence of malignancy in left breast. New right breast findings described above which possibly is a skin mole but is more evident on prior studies and therefore additional imaging with skin mole marker recommended. BI-RADS Category 0 - Assessment Incomplete: Need additional imaging evaluation Breast Density - Category C - Heterogeneously dense Breast density Category C or D implies that the patient has dense breast tissue. Dense breast tissue can make it harder to find cancer on a mammogram. Dense breast tissue is also associated with an incr eased risk of breast cancer. This information about the result of the mammogram report was provided to the patient to raise their awareness. Use this report when you speak with the patient about their risks for breast cancer, which includes their family history. At that time, you may recommend additional screening tests (Ultrasoun d or MRI) as these tests may add significant information. A negative radiographic report should not delay biopsy if a dominant or clinically suspicious mass is present. Up to ten percent of cancers are not identified on mammography. A negative report may reinforce clinical impression. Adenosis and dense breasts may obscure an underlying neoplasm. False positive reports average 6 to 10%. Patient will receive a letter notifying them of these results.
== END 2021-01-14 03:23 ==
PROVIDERS: PCP Family Medicine; Visit Provider Family Medicine
DX: Z12.31 Encounter for screening mammogram for malignant neoplasm of breast (principal); R92.8 Other abnormal and inconclusive findings on diagnostic imaging of breast
CPT/HCPCS: 77063; 77067

== ENCOUNTER 2021-02-03 02:01 | Outpatient (CLI) | payer MEDICARE, BC, SELFPAY ==
--- NOTE | 2021-02-03 | DI.MAMMO_ITS ---
Exam(s) MAMMO SCREEN CALL BACK UNI EXAM: MAMMO SCREEN CALL BACK UNI RIGHT CLINICAL HISTORY: F/U MAMMO, DENSE TISSUE,NEW RT BREAST DENSITY,? SKIN MOLE. TECHNIQUE: Unilateral spot mammographic images were obtained with 3D tomosynthesis and utilizing Subblimeer aided detection (CAD). . Mole markers were placed COMPARISON: Prior mammograms reviewed, gross recent being the screening mammogram of 01/14/2021 FINDINGS: This additional imaging reveals that the nodule described on the mammogram of 01/14/2021 is indeed a skin mole. Therefore breast ultrasound was not required. IMPRESSION: No radiographic evidence of malignancy in the right breast. Appropriate follow-up is to keep this patient yearly mammogram schedule, with earlier imaging if a se lf detected breast change was noted. The patient was informed of these findings and recommendations prior to leaving the department today. BI-RADS Category 2 - Benign Findings Breast Density - Category C - Heterogeneously dense Breast density Category C or D implies that the patient has dense breast tissue. Dense breast tissue can make it harder to find cancer on a mammogram. Dense breast tissue is also associated with an incr eased risk of breast cancer. This information about the result of the mammogram report was provided to the patient to raise their awareness. Use this report when you speak with the patient about their risks for breast cancer, which includes their family history. At that time, you may recommend additional screening tests (Ultrasoun d or MRI) as these tests may add significant information. A negative radiographic report should not delay biopsy if a dominant or clinically suspicious mass is present. Up to ten percent of cancers are not identified on mammography. A negative report may reinforce clinical impression. Adenosis and dense breasts may obscure an underlying neoplasm. False positive reports average 6 to 10%. Patient will receive a letter notifying them of these results.
== END 2021-02-03 02:21 ==
PROVIDERS: PCP Family Medicine; Visit Provider Family Medicine
DX: Z12.31 Encounter for screening mammogram for malignant neoplasm of breast (principal)
CPT/HCPCS: 77063; 77067

== ENCOUNTER 2021-05-13 15:10 | Outpatient (REF) | payer MEDICARE, BC, SELFPAY ==
[2021-05-13 13:04] LABS: Bilirubin Negative (Negative); Blood Trace-intact (Negative); Clarity Clear (Clear); Glucose Negative (Negative); Ketones Negative (Negative); Leukocyte Esterase Trace (Negative); Nitrite Negative (Negative); Specific Gravity 1.015 (1.005-1.025); Urobilinogen 0.2 EU/dL (Up TO 0.2)
[2021-05-13 13:15] LABS: Bacteria Rare HPF (Negative); C & S Indicated? No/Sq. Contamination; Casts Negative LPF (Negative); Crystals Negative HPF (Negative); Epithelial Cells Moderate HPF (Negative); Mucus Negative (Negative); RBC 0-2 HPF (0-2); WBC 0-2 HPF (0-5)
== END 2021-05-13 15:11 | disposition home or self-care (01) ==
LOC: LBN 15:10
PROVIDERS: PCP Family Medicine; Visit Provider Family Medicine
DX: R35.0 Frequency of micturition (principal)
CPT/HCPCS: 81003; 81015

== ENCOUNTER 2021-09-09 01:59 | Outpatient (CLI) | payer MEDICARE, BC, SELFPAY ==
[2021-09-09 12:54] LABS: Hemoglobin A1C 5.6 % (<5.7)
[2021-09-09 13:54] LABS: Vitamin D 25 Total 48.7 ng/mL (30-100)
[2021-09-09 13:57] LABS: TSH (W/Ref FT4) 0.79 uIU/mL (0.36-3.74); Vitamin B12 375 pg/mL (193-986)
== END 2021-09-09 02:00 | disposition home or self-care (01) ==
LOC: LBO 01:59
PROVIDERS: PCP Family Medicine; Visit Provider Family Medicine
DX: E03.9 Hypothyroidism, unspecified (principal); F32.9 Major depressive disorder, single episode, unspecified; K21.9 Gastro-esophageal reflux disease without esophagitis; K58.1 Irritable bowel syndrome with constipation; M85.88 Other specified disorders of bone density and structure, other site; F31.9 Bipolar disorder, unspecified; R79.89 Other specified abnormal findings of blood chemistry; Z68.33 Body mass index [BMI] 33.0-33.9, adult
CPT/HCPCS: 36415; 82306; 82607; 83036; 84443

== ENCOUNTER 2021-12-16 03:10 | Outpatient (CLI) | payer MEDICARE, BC, SELFPAY ==
[2021-12-16 12:26] LABS: HCT 40.4 % (36.0-46.0); HGB 12.8 g/dL (11.2-15.7); MCH 31.8 pg (27.0-33.0); MCHC 31.7 % (32.0-36.0); MCV 100 fL (80-95); MPV 10.7 fL (8.0-11.0); Platelet Count 268 10^3/uL (130-400); RBC 4.03 10^6/uL (3.93-5.22); RDW 13.2 % (11.7-14.6); RDW-SD 48.8 fL; WBC 6.04 10^3/uL (4.4-10.8)
[2021-12-16 13:02] LABS: ALT 17 U/L (14-59); AST 9 U/L (15-37); Albumin 3.9 g/dL (3.4-5.0); Alkaline Phosphatase 104 U/L (46-116); Anion Gap 11.7 mmol/L (3-11); BUN 13 mg/dL (7-18); Bilirubin, Total 0.4 mg/dL (0.2-1.0); CO2 27.3 mmol/L (21.0-32.0); CREATININE 1.5 mg/dL (0.55-1.02); Calcium 9.1 mg/dL (8.5-10.1); Calculated LDL 74 mg/dL (<100); Chloride 103 mmol/L (98-107); Cholesterol 157 mg/dL (<200); Estimated GFR 33.85 (mL/min/1.73m2); Glucose 108 mg/dL (74-106); HDL Cholesterol 56 mg/dL (40-60); Sodium 142 mmol/L (136-145); TSH (W/Ref FT4) 3.64 uIU/mL (0.36-3.74); Triglyceride 138 mg/dL (<150)
== END 2021-12-16 03:11 | disposition home or self-care (01) ==
LOC: LOS 03:10
PROVIDERS: PCP Family Medicine; Visit Provider Family Medicine
DX: E03.9 Hypothyroidism, unspecified (principal); E04.9 Nontoxic goiter, unspecified; K58.1 Irritable bowel syndrome with constipation; N25.9 Disorder resulting from impaired renal tubular function, unspecified; R79.89 Other specified abnormal findings of blood chemistry
CPT/HCPCS: 36415; 80053; 80061; 85027; 84443

== ENCOUNTER 2022-01-04 20:18 | Outpatient (REF) | payer MEDICARE, BC, SELFPAY ==
[2022-01-04 13:44] LABS: Bilirubin Negative (Negative); Blood Small (Negative); Clarity Sl Cloudy (Clear); Glucose Negative (Negative); Ketones Negative (Negative); Leukocyte Esterase Large (Negative); Nitrite Negative (Negative); Specific Gravity 1.015 (1.005-1.025); Urobilinogen 0.2 EU/dL (Up TO 0.2)
[2022-01-04 13:51] LABS: Bacteria Moderate HPF (Negative); C & S Indicated? Yes; Casts Negative LPF (Negative); Crystals Negative HPF (Negative); Epithelial Cells Few HPF (Negative); Mucus Trace (Negative); WBC >50 HPF (0-5)
== END 2022-01-04 20:19 | disposition home or self-care (01) ==
LOC: LBN 20:18
PROVIDERS: PCP Family Medicine; Visit Provider Family Medicine
DX: N39.0 Urinary tract infection, site not specified (principal)
CPT/HCPCS: 87077; 81003; 81015; 87086; 87186

== ENCOUNTER 2022-04-19 11:42 | Outpatient (CLI) | payer MEDICARE, BC, SELFPAY ==
--- NOTE | 2022-04-19 11:30 | RT.EKG_ITS ---
APPROVED REPORT Exam: Resting ECG Reason for Exam: SOB, palpitations Patient Location: O HR:68 bpm ECG Measurements Heart Rate 68 AXIS WV 174 P 41 QRSd 94 QRS 17 QT 411 T 88 QTc 438 Conclusion Sinus rhythm...normal P axis, V-rate 50- 99 Borderline low voltage, extremity leads...all extremity leads <0.6mV Otherwise normal
== END 2022-04-19 11:43 | disposition home or self-care (01) ==
LOC: DI.CM 11:43
PROVIDERS: PCP Family Medicine; Visit Provider Family Medicine
DX: R00.2 Palpitations (principal); R06.02 Shortness of breath
CPT/HCPCS: 93010

== ENCOUNTER → 2022-04-22 00:24 | Outpatient (CLI) | payer MEDICARE, BC, SELFPAY ==
--- NOTE | 2022-04-22 06:45 | DI.RAD_ITS ---
Exam(s) XR CHEST 2V PA LATERAL EXAM: XR CHEST 2V PA LATERAL CLINICAL HISTORY: cough,PALPITATIONS,R05.9,R00.2. TECHNIQUE: 2D digital imaging was performed. COMPARISON: CR,XR XR CHEST 2V PA LATERAL from 05/14/2020 FINDINGS: 2 views: Heart size is normal. The mediastinum is not widened. Right lung is clear. Density behind the left side of the heart probably relates to left rib at this level. No new infiltrates nor pleural effusions. No pulmonary edema. No pneumothorax. Left prosthesis shoulder again noted IMPRESSION: No acute pulmonary findings.Left posterior rib density, more so than previous. If clinically indicat ed this could be further study with chest CT scan. DATA REPOSITORY: RADIATION DOSE DELIVERED:
== END ==
PROVIDERS: PCP Family Medicine; Visit Provider Family Medicine
DX: R00.2 Palpitations (principal); R05.9 Cough, unspecified
CPT/HCPCS: 36415; 80053; 85027; 71046; 84443

== ENCOUNTER 2022-04-22 01:35 | Outpatient (CLI) | payer MEDICARE, BC, SELFPAY ==
[2022-04-22 11:12] LABS: HCT 39.1 % (36.0-46.0); HGB 12.5 g/dL (11.2-15.7); MCH 30.9 pg (27.0-33.0); MCV 97 fL (80-95); Platelet Count 257 10^3/uL (130-400); RBC 4.05 10^6/uL (3.93-5.22); RDW-SD 46.1 fL
[2022-04-22 12:29] LABS: ALT 16 U/L (14-59); AST 17 U/L (15-37); Albumin 3.8 g/dL (3.4-5.0); Alkaline Phosphatase 107 U/L (46-116); Anion Gap 2.4 mmol/L (3-11); BUN 18 mg/dL (7-18); Bilirubin, Total 0.3 mg/dL (0.2-1.0); CO2 28.6 mmol/L (21.0-32.0); CREATININE 1.3 mg/dL (0.55-1.02); Calcium 9.6 mg/dL (8.5-10.1); Chloride 101 mmol/L (98-107); Estimated GFR 42.88 (mL/min/1.73m2); Glucose 106 mg/dL (74-106); Potassium 3.8 mmol/L (3.5-5.1); Sodium 132 mmol/L (136-145); TSH (W/Ref FT4) 1.42 uIU/mL (0.36-3.74); Total Protein 7.7 g/dL (6.4-8.2)
== END 2022-04-22 01:36 | disposition home or self-care (01) ==
LOC: LBO 01:35
PROVIDERS: PCP Family Medicine; Visit Provider Family Medicine
DX: R00.2 Palpitations (principal)
CPT/HCPCS: 36415; 80053; 85027; 84443

== ENCOUNTER → 2022-05-27 00:07 | Outpatient (CLI) | payer MEDICARE, BC, SELFPAY ==
--- NOTE | 2022-05-27 08:15 | DI.CT_ITS ---
Exam(s) CT CHEST WO EXAM: CT CHEST WO CLINICAL HISTORY: rib - abnl on cxr, R93.89. TECHNIQUE: Multi planar reconstructions were performed. CONTRAST MATERIAL: None COMPARISON: CT CT CHEST PE CTA from 10/14/2018 CR XR CHEST 2V PA LATERAL from 04/22/2022 FINDINGS: CHEST: LUNGS: No infiltrates nor pleural effusions. There are no ominous pulmonary nodules. No significant focal findings in the trachea and mainstem bronchi no abnormal lung findings in the left lower lobe retrocardiac region as seen on recent chest x-ray. MEDIASTINUM: There is no obvious hilar nor mediastinal adenopathy. Visualized thyroid unremarkable.No obvious axillary adenopathy CARDIAC: Heart size is normal. There is no significant pericardial effusion.Caliber of the thoracic aorta is within normal limits. VISUALIZED UPPER ABDOMEN:No adrenal masses. Prior cholecystectomy. No splenomegaly. OSSEOUS: No fractures. No ominous osseous lesions. No posterior rib finding on the left side correl ate to the finding on the recent chest x-ray. Anteriorly there is calcification at the costochondral junctions but this is bilateral. Left shoulder prosthesis noted. IMPRESSION: 1. No significant lung findings, pleural effusions, nor intrathoracic adenopathy. 2. No abnormal osseous findings to correlate with the finding described on the recent chest x-ray beh ind the left side of the heart. There is also no abnormal calcification on the left side of the hear t nor pericardium. 3. Left shoulder prosthesis noted. RADIATION DOSE DELIVERED: 658.69mGy.cm Total DLP DATA REPOSITORY: All CT scans at this facility are submitted to the National Radiology Data Registry (NRDR) Dose Index Registry (DIR) with the [employer] (A[employer]). RADIATION OPTIMIZATION: All CT scans at this facility use at least one of these dose optimization te chniques: automated exposure control; mA and/or kV adjustment per patient size (includes targeted exa ms where dose is matched to clinical indication); or iterative reconstruction.
--- NOTE | 2022-05-27 08:15 | DI.DEXA_ITS ---
Exam(s) XR DEXA BONE DENSITY W/WO MARBIN EXAM: XR DEXA BONE DENSITY W/WO MARBIN CLINICAL HISTORY: osteoporosis, M81.0 TECHNIQUE: Routine DEXA evaluation of the lumbar spine, hip, or forearm. COMPARISON: CR XR LUMBAR SPINE AP, LAT from 12/16/2019 FINDINGS: Performed on a Hologic unit. Lateral image: No compression fracture evident. Lumbar Spine total T-score: 0.2 Hip total T-score:-1.0 Independent reading at the level of the femoral neck yields at T-score of -0.5. Forearm total T-score: -2.1 IMPRESSION: Bone mineral density measures in the osteopenia range. Fracture risk is moderate. Note: Any spine fracture indicates 5x risk for subsequent spine fracture and 2x risk for subsequent h ip fracture. World Health Organization criteria for BMD interpretation classify patients: Normal...... T- Score at or above -1.0 Osteopenic... T- Score between -1.0 and -2.5 Osteoporosis... T-Score at or below -2.5
== END ==
PROVIDERS: PCP Family Medicine; Visit Provider Family Medicine
DX: R93.89 Abnormal findings on diagnostic imaging of other specified body structures (principal); M85.89 Other specified disorders of bone density and structure, multiple sites; Z13.820 Encounter for screening for osteoporosis; Z96.612 Presence of left artificial shoulder joint
CPT/HCPCS: 71250; 77080

== ENCOUNTER 2022-07-05 18:02 | Outpatient (REF) | payer MEDICARE, SELFPAY ==
[2022-07-05 12:37] LABS: Bilirubin Negative (Negative); Blood Small (Negative); Clarity Sl Cloudy (Clear); Glucose Negative (Negative); Ketones Negative (Negative); Leukocyte Esterase Moderate (Negative); Nitrite Positive (Negative); Specific Gravity 1.015 (1.005-1.025); Urobilinogen 0.2 EU/dL (Up TO 0.2); pH 6.5 (5-8)
[2022-07-05 12:49] LABS: Bacteria Moderate HPF (Negative); C & S Indicated? No/Sq. Contamination; Casts Negative LPF (Negative); Crystals Negative HPF (Negative); Epithelial Cells Moderate HPF (Negative); Mucus Trace (Negative); WBC 20-50 HPF (0-5)
== END 2022-07-05 18:03 | disposition home or self-care (01) ==
LOC: LBN 18:02
PROVIDERS: PCP Family Medicine; Visit Provider Family Medicine
DX: R35.0 Frequency of micturition (principal)
CPT/HCPCS: 81003; 81015

== ENCOUNTER 2022-08-02 12:07 | Outpatient (CLI) | payer MEDICARE, SELFPAY ==
--- NOTE | 2022-08-02 12:00 | RT.EKG_ITS ---
APPROVED REPORT Exam: Resting ECG Reason for Exam: Chest discomfort Patient Location: O HR:69 bpm ECG Measurements Heart Rate 69 AXIS [place] 185 P 65 QRSd 93 QRS 44 QT 398 T 56 QTc 427 Conclusion Sinus rhythm...normal P axis, V-rate 50- [address] abnormalities
== END 2022-08-02 12:08 | disposition home or self-care (01) ==
LOC: DI.CM 12:07
PROVIDERS: PCP Family Medicine; Visit Provider Nurse Practitioner Family
DX: R07.89 Other chest pain (principal)
CPT/HCPCS: 93010

== ENCOUNTER 2022-08-02 13:08 | Outpatient (REF) | payer MEDICARE, SELFPAY ==
[2022-08-02 20:35] LABS: HCT 39.3 % (36.0-46.0); HGB 12.9 g/dL (11.2-15.7); MCH 31.5 pg (27.0-33.0); MCHC 32.8 % (32.0-36.0); MCV 96 fL (80-95); MPV 10.9 fL (8.0-11.0); Platelet Count 262 10^3/uL (130-400); RDW 13.2 % (11.7-14.6); RDW-SD 46.6 fL; WBC 6.23 10^3/uL (4.4-10.8)
[2022-08-02 20:48] LABS: ALT 15 U/L (14-59); AST 20 U/L (15-37); Albumin 4.2 g/dL (3.4-5.0); Alkaline Phosphatase 114 U/L (46-116); Anion Gap 9.6 mmol/L (3-11); BUN 17 mg/dL (7-18); Bilirubin, Total 0.4 mg/dL (0.2-1.0); CO2 27.4 mmol/L (21.0-32.0); CREATININE 1.5 mg/dL (0.55-1.02); Calcium 9.4 mg/dL (8.5-10.1); Chloride 102 mmol/L (98-107); Estimated GFR 36.12 (mL/min/1.73m2); Glucose 105 mg/dL (74-106); Potassium 4.5 mmol/L (3.5-5.1); Sodium 139 mmol/L (136-145); Total Protein 7.3 g/dL (6.4-8.2)
[2022-08-02 20:51] LABS: Bilirubin Negative (Negative); Blood Trace-intact (Negative); Clarity Clear (Clear); Glucose Negative (Negative); Ketones Negative (Negative); Leukocyte Esterase Trace (Negative); Nitrite Negative (Negative); Urobilinogen 0.2 EU/dL (Up TO 0.2)
[2022-08-02 21:04] LABS: Bacteria Few HPF (Negative); C & S Indicated? Yes; Crystals Negative HPF (Negative); Epithelial Cells Few HPF (Negative); Mucus Trace (Negative); RBC 0-2 HPF (0-2); WBC 20-50 HPF (0-5)
== END 2022-08-02 13:09 | disposition home or self-care (01) ==
LOC: LBN 13:08
PROVIDERS: PCP Family Medicine; Visit Provider Nurse Practitioner Family
DX: R53.83 Other fatigue (principal); R39.89 Other symptoms and signs involving the genitourinary system; R82.998 Other abnormal findings in urine
CPT/HCPCS: 80053; 85027; 87077; 81003; 81015; 87086; 87186

== ENCOUNTER 2022-10-27 00:21 | Outpatient (CLI) | payer MEDICARE, BC, SELFPAY ==
--- NOTE | 2022-10-27 08:45 | DI.NM_ITS ---
APPROVED REPORT Exam: Pharmacologic Patient Location: Out-Patient Room/Bed: Stress Nurse: Sahara Crump RN Ordering Provider:BETINA LAURENT, Contact Number: [phone] BMI: 36.27 Baseline Rhythm: Sinus Rhythm Indications: SOB, Fatigue Medical History Medical History: PAF, hypothyroidism, SOB, obesity, GERD, HLD, depression, arthritis Cardiac Medications: metoprolol succinate, albuterol sulfate, atorvastatin, apixaban, symbicort, pant oprazole Allergies: Bactrim, PCN, ibuprofen, clarithromycin Cardiac Risk Factors: Family hx, HLD, former smoker, obesity Previous Cardiac Procedures: None Pretest Chest Pain Characteristics: None Exercise History: Indeterminate Physical Disabilities: Legs, Knees Lung Sounds: Clear to auscultation Heart Sounds: Regular Stress Test Details Test: Pharmacologic stress was paired with low level exercise. Reason for pharmacologic stress test: physical limitation. Nuclear Acquisition: Rest Tc-99m/Stress Tc-99m 1 day Rest Isotope: Tc-99m Sestamibi. Dose: 10.2 Date: 10/27/2022 Injection Time: 0910 Stress Isotope: Tc-99m Sestamibi. Dose: 32.9 Date: 10/27/2022 Injection Time: 1125 HR Resting HR Supine: 67 bpm Max Heart Rate (APMHR): 144.575812 bpm Resting HR Standin bpm Target HR (85% APMHR): 122.558384 bpm Max HR Achieved: 104 bpm % of APMHR: 72.22 Recovery HR: 82 bpm BP Resting BP Supine: 110/78 mmHg Resting BP Standin/70 mmHg Max BP: 138/74 mmHg Recovery BP: 118/78 mmHg ECG Resting ECG: Sinus Rhythm Ectopy: None Stress ECG: Sinus Tachycardia ST Change: Nondiagnostic low heart rate Arrhythmia: None Recovery ECG: Sinus Rhythm Recovery ST Change: Nondiagnostic low heart rate Recovery Arrhythmia: None Clinical Stress Symptoms: Mild dyspnea, , General Fatigue Angina Score: None Rate Pressure Product: [id number] Stress ECG Conclusion 1. Resting electrocardiogram showed nondiagnostic ST-T abnormalities 2. Patient underwent testing using pharmacologic stress with regadenoson 3. Peak heart rate achieved was 72% of predicted for age 4. The electrocardiographic portion of the test was nondiagnostic 5. See MPI report Stress Test Summary STAGE HR BP SpO2 Symptoms NOTES Supine 67 110/78 99 Standing 77 108/70 1 min post Lexiscan injection 103 118/70 94 3 min post Lexiscan injection 94 138/74 6 min post Lexiscan injection 85 130/80 94 9 min post Lexiscan injection 82 118/78 MPI Conclusion Myocardial perfusion is normal. There is no ischemia or evidence of prior infarction EF 70%, normal wall motion Radiologist Interpretation Radiologist agrees with [facility] Conveyor Operator's Interpretation. Radiologist Interpretation by: Carola Ackerman MD Interpretation Date/Time: 10/27/2022 16:21:09
[2022-10-27] MEDS: Regadenoson 0.4 MG/5 ML SYR IVP (13:48)
== END 2022-10-27 00:41 ==
PROVIDERS: PCP Family Medicine; Visit Provider Family Medicine
DX: R06.02 Shortness of breath (principal); R53.82 Chronic fatigue, unspecified
CPT/HCPCS: 78452; 93016; 93018; 93017; J2785

== ENCOUNTER 2023-01-24 09:38 | Outpatient (CLI) | payer MEDICARE, BC, SELFPAY ==
--- NOTE | 2023-01-24 09:00 | DI.RAD_ITS ---
Exam(s) XR LUMBAR SPINE COMPLETE EXAM: XR LUMBAR SPINE COMPLETE CLINICAL HISTORY: severe LOW BACK PAIN, DJD, M47.816. TECHNIQUE: 2D digital imaging was performed. COMPARISON: CR XR DEXA BONE DENSITY W/WO MARBIN from 05/27/2022 FINDINGS: Five views. No evidence of acute fracture in. Multilevel advanced disc space narrowing throughout the lumbar spi ne noted. There is degenerative anterolisthesis L4 upon L5, by approximately 6 mm. At L3-4 level there is asymmetric narrowing of the left side of the disc space and left-sided bridgin g osteophytes noted at this level. Multilevel facet arthropathy, most evident at lower 2 levels. IMPRESSION: Multilevel degenerative changes including degenerative anterolisthesis of L4 upon L5. Multilevel chronic degenerative disc disease. Hardware noted in the right hip. DATA REPOSITORY: RADIATION DOSE DELIVERED:
== END 2023-01-24 09:58 ==
LOC: DI 09:38
PROVIDERS: PCP Family Medicine; Visit Provider Family Medicine
DX: M47.816 Spondylosis without myelopathy or radiculopathy, lumbar region (principal)
CPT/HCPCS: 72110

== ENCOUNTER 2023-03-02 05:29 | Outpatient (CLI) | payer MEDICARE, BC, SELFPAY ==
[2023-03-02 12:22] LABS: HCT 38.6 % (36.0-46.0); HGB 12.5 g/dL (11.2-15.7); MCH 30.6 pg (27.0-33.0); MCHC 32.4 % (32.0-36.0); MCV 94 fL (80-95); MPV 11.2 fL (8.0-11.0); Platelet Count 251 10^3/uL (130-400); RBC 4.09 10^6/uL (3.93-5.22); RDW 14.3 % (11.7-14.6); RDW-SD 49.8 fL; WBC 5.38 10^3/uL (4.4-10.8)
[2023-03-02 12:37] LABS: Hemoglobin A1C 5.6 % (<5.7)
[2023-03-02 12:52] LABS: ALT 17 U/L (14-59); AST 15 U/L (15-37); Albumin 3.6 g/dL (3.4-5.0); Alkaline Phosphatase 99 U/L (46-116); Anion Gap 8.4 mmol/L (3-11); BUN 16 mg/dL (7-18); Bilirubin, Total 0.3 mg/dL (0.2-1.0); CO2 28.6 mmol/L (21.0-32.0); CREATININE 1.4 mg/dL (0.55-1.02); Calcium 9.5 mg/dL (8.5-10.1); Calculated LDL 76 mg/dL (<100); Chloride 106 mmol/L (98-107); Cholesterol 150 mg/dL (<200); Estimated GFR 38.99 (mL/min/1.73m2); Glucose 108 mg/dL (74-106); HDL Cholesterol 51 mg/dL (40-60); Sodium 143 mmol/L (136-145); TSH (W/Ref FT4) 4.74 uIU/mL (0.36-3.74); Total Protein 7.1 g/dL (6.4-8.2); Triglyceride 119 mg/dL (<150)
[2023-03-02 15:27] LABS: FREE T4 0.85 ng/dL (0.76-1.46)
== END 2023-03-02 05:30 | disposition home or self-care (01) ==
LOC: LOS 05:29
PROVIDERS: PCP Family Medicine; Visit Provider Family Medicine
DX: E11.9 Type 2 diabetes mellitus without complications (principal); E03.9 Hypothyroidism, unspecified; E78.00 Pure hypercholesterolemia, unspecified; K31.84 Gastroparesis; N25.9 Disorder resulting from impaired renal tubular function, unspecified
CPT/HCPCS: 36415; 80053; 80061; 85027; 83036; 84439; 84443

== ENCOUNTER → 2023-03-29 10:53 | Outpatient (BNVA) | payer MEDICARE, BC, SELFPAY | PROVIDERS: PCP Family Medicine; Referring Provider Family Medicine; Visit Provider Surgery | DX: Z12.11 Encounter for screening for malignant neoplasm of colon (principal); Z80.0 Family history of malignant neoplasm of digestive organs ==

== ENCOUNTER 2023-05-02 19:39 | Observation (INO) | payer MEDICARE, BC, SELFPAY ==
[2023-05-02] VITALS (18 sets, daily range): BP systolic 131–168; BP diastolic 68–131; PULSE 70–109; RESP 12–24; TEMP 36.7; O2SAT 94–99
--- NOTE | 2023-05-02 19:45 | RT.EKG_ITS ---
APPROVED REPORT Exam: Resting ECG Reason for Exam: gi bleed Patient Location: E HR:73 bpm ECG Measurements Heart Rate 73 AXIS [place] 159 P 31 QRSd 74 QRS 25 QT 360 T 167 QTc 398 Conclusion Sinus Rhythm normal rate non specific st changes no change from prior There are no significant changes compared to prior EKG performed on 04/19/2022 at 11:45.
--- NOTE | 2023-05-02 19:45 | DI.CT_ITS ---
Exam(s) CT ABDOMEN PELVIS W EXAM: CT ABDOMEN PELVIS W CLINICAL HISTORY: RUQ and RLQ abd pain, GI bleeding TECHNIQUE: Imaging Protocol: Axial computed tomography images with coronal and sagittal reformatted images were created and reviewed CONTRAST MATERIAL: Intravenous: For 1 contrast volume:75 mL Oral: No COMPARISON: CT RENAL COLIC WO CONTRAST from 04/24/[address] CHEST PE CTA from 10/14/2018 CT,NM,TMT NM MPI REST STRESS GRP from 10/27/2022 FINDINGS: ABDOMEN: Lung Bases: There is a fat containing diaphragmatic hernia on the right. Liver: Normal density. No measurable mass. Portal, Superior Mesenteric, and Splenic Veins: Unremarkable. Gallbladder and Biliary Tract: Status post cholecystectomy. No significant biliary ductal dilatation . Pancreas: Normal density, no abnormal calcifications or inflammatory process. Spleen: Normal. Adrenals: No masses seen. Kidneys: Normal size, contour and axis. No radiodense stones or obstructive uropathy. There is a tiny hypodensity in the left kidney. It is too small for further characterization. No follow-up is kai mmended. Abdominal Aorta: Abdominal portion non-dilated. Atherosclerosis. Bowel: No obstruction or bowel wall thickening. Appendix is unremarkable. There is fluid in the small bowel and colon which can be seen with a diarrheal illness. Peritoneal Cavity: No ascites, collection or mesenteric inflammatory response. No free air. Lymph Nodes: Within normal limits. Bones: Within normal limits for the patient's age. There is an ORIF in the right femur. Soft Tissues: Unremarkable. Small bilateral fat containing inguinal hernias. PELVIS: Bladder: The urinary bladder is incompletely distended but grossly unremarkable. Reproductive Organs: Unremarkable as visualized. Lymph Nodes: Within normal limits. Bones: Within normal limits for the patient's age. IMPRESSION: Fluid seen in the colon and small bowel suggesting a diarrheal illness. No evidence of diverticuliti s or colitis. RADIATION DOSE DELIVERED: Total DLP DATA REPOSITORY: All CT scans at this facility are submitted to the National Radiology Data Registry (NRDR) Dose Index Registry (DIR) with the [employer] ([employer]). RADIATION OPTIMIZATION: All CT scans at this facility use at least one of these dose optimization te chniques: automated exposure control; mA and/or kV adjustment per patient size (includes targeted exa ms where dose is matched to clinical indication); or iterative reconstruction.
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
[2023-05-02 20:00] LABS: Abs Immature Grans 0.02 10^3/uL (0.0-0.06); Absolute Basophil Count 0.08 10^3/uL (0.0-0.2); Absolute Lymphocyte Count 2.86 10^3/uL (1.2-3.4); Absolute Monocyte Count 0.84 10^3/uL (0.1-0.8); Absolute Neutrophil Count 5.59 10^3/uL (1.2-6.7); Basophils % 0.8; Eosinophils % 1.1; HCT 34.5 % (36.0-46.0); HGB 11.3 g/dL (11.2-15.7); Immature Grans % 0.2; Lymphocytes % 30.1; MCH 30.5 pg (27.0-33.0); MCHC 32.8 % (32.0-36.0); MCV 93 fL (80-95); MPV 9.7 fL (8.0-11.0); Monocytes % 8.9; Neutrophils % 58.9; Platelet Count 363 10^3/uL (130-400); RBC 3.71 10^6/uL (3.93-5.22); RDW 13.5 % (11.7-14.6); RDW-SD 45.7 fL; WBC 9.49 10^3/uL (4.4-10.8)
[2023-05-02] MEDS: Pantoprazole 40 MG VIAL 80 MG IVP (20:03)
[2023-05-02] MEDS: Normal Saline 1,000 ML 125 ML IV (20:03)
[2023-05-02 20:10] LABS: Prothrombin Time 10.4 sec (9.1-11.1)
[2023-05-02 20:17] LABS: ALT 16 U/L (14-59); AST 18 U/L (15-37); Alkaline Phosphatase 97 U/L (46-116); Anion Gap 10.4 mmol/L (3-11); BUN 16 mg/dL (7-18); Bilirubin, Total 0.5 mg/dL (0.2-1.0); CO2 23.6 mmol/L (21.0-32.0); CREATININE 1.7 mg/dL (0.55-1.02); Calcium 9.3 mg/dL (8.5-10.1); Chloride 94 mmol/L (98-107); Estimated GFR 30.89 (mL/min/1.73m2); Glucose 122 mg/dL (74-106); Magnesium 1.9 mg/dL (1.8-2.4); Potassium 3.4 mmol/L (3.5-5.1); Sodium 128 mmol/L (136-145); Total Protein 7.8 g/dL (6.4-8.2); Troponin I < 50 ng/L (<or=60)
[2023-05-02] MEDS: Omnipaque 350 MG/ML 100 ML BTL IJ (20:48)
[2023-05-02] MEDS: Normal Saline - Diluent 50 ML VIAL IJ (20:51)
[2023-05-02] MEDS: Normal Saline Flush 10 ML SYR IVP (20:51)
--- NOTE | 2023-05-02 21:29 | DI.VRAD_ITS ---
PROCEDURE INFORMATION: Exam: CT Abdomen And Pelvis With Contrast Exam date and time: 05/02/2023 8:42 PM Age: 77 years old Clinical indication: Abdominal pain; Patient HX: Ruq and rlq abd pain; Additional info: Gi bleeding. Scheduled for colonoscopy tomorrow. TECHNIQUE: Imaging protocol: Computed tomography of the abdomen and pelvis with contrast. COMPARISON: CR XR HIP RT COMPLETE AP PELVIS 12/16/2019 2:45 PM FINDINGS: Lungs: Lung bases clear. Diaphragm: Bochdalek hernia on the right. Liver: Normal appearing liver. Gallbladder and bile ducts: Prior cholecystectomy with postop biliary dilatation. Pancreas: Normal appearing pancreas. Spleen: Normal appearing spleen. Adrenal glands: Normal appearing adrenal glands. Kidneys and ureters: Small indeterminate hypoattenuating left renal lesion, not well characterized but statistically most likely a small renal cyst. Otherwise normal-appearing kidneys no hydronephrosis. No obstructing ureteral stones. Stomach and bowel: Stomach partially distended with fluid. No small bowel dilatation to suggest obstruction. Colon almost completely evacuated of formed fecal material. Fluid throughout the colon suggesting diarrhea. No evidence of diverticulitis or colitis. Mild prominence of the perirectal veins suggesting possible hemorrhoids. Clinical correlation recommended. Appendix: Normal appendix. Intraperitoneal space: No gross ascites or free air. Vasculature: Normal caliber abdominal aorta. Lymph nodes: No pathologically enlarged mesenteric, retroperitoneal, or pelvic sidewall lymph nodes. Urinary bladder: Urinary bladder collapsed and not well evaluated but grossly unremarkable, as seen. Reproductive: Uterus and ovaries partially obscured but grossly normal in size. Bones/joints: Intramedullary helene partially visualized in the proximal right femur with a dynamic hip screw. No acute fracture seen among the bones of the abdomen or pelvis. Spinal degenerative change with discogenic degeneration, vacuum disc deformities, anterior osteophytes, and facet arthrosis at multiple levels. Soft tissues: Small fat containing bilateral inguinal region hernias, larger on the left. IMPRESSION: Fluid throughout the small bowel and colon suggesting diarrhea. No evidence of diverticulitis or colitis. Dictated and Authenticated by: Gilberto Wilde MD. Ordering:SELENE Blanco MD
[2023-05-02 21:52] LABS: Source Nasal/Nares
[2023-05-02 22:23] LABS: COVID-19 PCR Negative (Negative)
[2023-05-02] MEDS: Lactated Ringers 1,000 ML 150 ML IV (23:03)
[2023-05-02 23:26] LABS: Troponin I < 50 ng/L (<or=60)
[2023-05-03] VITALS (14 sets, daily range): BP systolic 129–167; BP diastolic 62–120; PULSE 76–90; RESP 15–20; TEMP 36.3–37.1; O2SAT 96–98; BMI 33.5
[2023-05-03] MEDS: Lactated Ringers 1,000 ML 150 ML IV (05:25)
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
[2023-05-03 07:00] LABS: Abs Immature Grans 0.01 10^3/uL (0.0-0.06); Absolute Basophil Count 0.06 10^3/uL (0.0-0.2); Absolute Eosinophil Count 0.06 10^3/uL (0.0-0.7); Absolute Monocyte Count 0.58 10^3/uL (0.1-0.8); Absolute Neutrophil Count 4.85 10^3/uL (1.2-6.7); Basophils % 0.8; Eosinophils % 0.8; HCT 26.1 % (36.0-46.0); HGB 8.5 g/dL (11.2-15.7); Immature Grans % 0.1; Lymphocytes % 24.5; MCH 30.2 pg (27.0-33.0); MCHC 32.6 % (32.0-36.0); MCV 93 fL (80-95); MPV 9.6 fL (8.0-11.0); Monocytes % 7.9; Neutrophils % 65.9; Platelet Count 243 10^3/uL (130-400); RBC 2.81 10^6/uL (3.93-5.22); RDW 13.4 % (11.7-14.6); RDW-SD 45.4 fL; WBC 7.36 10^3/uL (4.4-10.8)
[2023-05-03 07:17] LABS: ALT 14 U/L (14-59); AST 14 U/L (15-37); Albumin 3.1 g/dL (3.4-5.0); Alkaline Phosphatase 73 U/L (46-116); Anion Gap 7.7 mmol/L (3-11); BUN 11 mg/dL (7-18); Bilirubin, Total 0.4 mg/dL (0.2-1.0); CO2 25.3 mmol/L (21.0-32.0); CREATININE 1.2 mg/dL (0.55-1.02); Calcium 8.7 mg/dL (8.5-10.1); Chloride 103 mmol/L (98-107); Estimated GFR 46.91 (mL/min/1.73m2); Glucose 96 mg/dL (74-106); Potassium 3.6 mmol/L (3.5-5.1); Sodium 136 mmol/L (136-145); Total Protein 6.1 g/dL (6.4-8.2)
--- NOTE | 2023-05-03 09:01 | NUR.NOTE ---
Nursing Note: The patient in 214 was in the outpatient observation status upon this nurses shift. This nurse got report and did a bedside round. within an hour of this nurses shift, the patient was transferred to the OR for a colonoscopy and would be discharged from the OR. This nurse did not have time to do a full shift assessment but upon bedside report the patients VSS and the patient appeared to be in no distress.
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
--- NOTE | 2023-05-03 09:38 | BOWEL_PTH ---
PATIENT: Lisseth Lomeli LOC: U#:[id number] AGE/SX: 77/F ROOM: 214 RE05/02/[address]: Haley Chang MD : 1945 BED: A DIS: 05/05/2023 SPEC #: [id number] RECD: 05/03/23 12:36 STATUS: SOUSher REQ #: [id number] MARTIN: 05/03/23 09:[address]: Nehemiah Hess DEPT: Surgical Specimen RECD BY: Maira Hdz ENTERED: 05/03/23 12:37 SP TYPE: Bowel OTHR DR: Marely Singh MD, DC Haley Chang MD Tissues: 1 - BIOPSY BOWEL 2 - STOMACH BIOPSY 3 - ESOPHAGUS BIOPSY Procedures: GROSS AND MICRO LEVEL 4 Comments: [id number]
--- NOTE | 2023-05-03 10:28 | W.ANESPOSTOP ---
Postoperative Evaluation Date, Time and Location Date Performed: 05/03/23 Time Performed: 10:28 Patient Location: PACU Vital Signs Most Recent Imported Vital Signs: Most Recent Vital Signs Temp Pulse Resp BP Pulse Ox 36.8 C 85 18 132/83 98 05/03/23 07:52 05/03/23 07:52 05/03/23 07:52 05/03/23 07:52 05/03/23 07:52 Pain Score Most Recent Pain Score: Most Recent Pain Score Pain Level 5 05/03/23 07:52 Assessment Mental Status: Awake (Alert & Oriented to Patient Baseline) Airway and Respiratory Function: Patent airway with normal (patient baseline) respiratory exam Cardiovascular Function: Hemodynamically Stable Hydration Status: Adequately Hydrated Nausea & Vomiting: No Nausea or Vomiting Pain: Pt. Denies Any Pain Peripheral Nerve Block: Patient did not receive a nerve block
--- NOTE | 2023-05-03 10:33 | ENDO_ITS ---
Date of service: 05/03/23 Time of Service: 11:19 Endoscopy Report PROCEDURE DESCRIPTION: Procedures performed: 1.? Esophagogastroduodenoscopy with cold forceps biopsies Preoperative diagnosis: GI bleeding Postoperative diagnosis: Moderate (2-3cm) type I sliding hiatal hernia(Hill 2), mild duodenitis Surgeon: Austin Hess Anesthesia: Jorge Indication for procedure: 77-year-old woman who has started having GI bleeding (bright red bleeding per rectum) over the last week. She does take Eliquis at baseline. Findings: - D3, D2 - normal - no inflammation or ulcers -Duodenal bulb - a mild patch of inflammation seen. This is not a zbigniew ulceration. This is on the anterior surface. Has no visible stigmata of recent bleeding; there is no visible vessel. I biopsied this with cold forceps technique. - Pylorus - patent.? No bile reflux visualized during procedure. - Antrum - does not look inflamed. biopsies taken to rule out occult H. pylori - Stomach Body - normal appearance. There are no coffee grounds anywhere. - Fundus -? Normal.? No polyps. - Hiatus - Retroflexion showed a moderate?size type I sliding hiatal hernia (2- 3cm slide). The hiatal opening is Hill grade 2 - Esophagus - distal esophagus does not look inflamed at al despite small hernia.? No stricture or evidence of Do's.? The mid and proximal esophagus was also normal. I took cold forceps biopsies of the distal esophagus because of the hernia. - Cords/hypopharynx - Normal OVERALL - mild duodenitis would not explain bright red bleeding per rectum. Overall nothing found in the foregut to explain GI bleeding. Surveillance/follow-up recommendations: Pending biopsy results. Unlikely to be necessary.?? Complications: None Blood loss: Minimal Specimens:? YES Procedure in detail: Written consent was obtained from the patient who was in agreement with the risks, benefits and indications of the procedure.? We went to the endoscopy suite and laid the patient in left lateral decubitus position.? Anesthesia was administered which was tolerated well.? A timeout was performed and when we are all in agreement we began the procedure. A well?lubricated endoscope was advanced without difficulty down the esophagus, into the stomach, through a patent pylorus and into the duodenum.? It was then slowly pulled back with findings noted above. The scope was then removed and the patient tolerated the procedure well and was then turned for the colonoscopy portion of the procedure (see separate procedure note)
--- NOTE | 2023-05-03 10:33 | W.COLOREPORT ---
Date of service: 05/03/23 Time of Service: 10:33 Colonoscopy Report Procedure Description: Procedures performed: 1. Colonoscopy Preoperative diagnosis: Surveillance colonoscopy, GI bleeding Postoperative diagnosis: Grade 2 internal hemorrhoids Surgeon: Austin Hess Anesthesia: Jorge Indication for procedure: Patient is a 77-year-old woman who is due for surveillance colonoscopy but about a week ago started noticing bright blood per rectum. She is on blood thinners. She says I think it is my hemorrhoids. A single isolated aunt had colon cancer. Findings: There is no evidence of new or old blood anywhere in the colon. No polyps were found. In the rectum there are a few small blood clots and small?amount of blood in the rectal vault and significant grade 2 internal hemorrhoid disease at all 3 columns. Surveillance/follow-up recommendations: Repeat colonoscopy can be considered in 10 years if a good life expectancy exists at that time. GI bleeding felt to be related to hemorrhoids. Complications: None Blood loss: Minimal Specimens:?? No Quality of Prep:?? Excellent Procedure in detail: Written consent was obtained from the patient who was in agreement with the risks, benefits and indications of the procedure.? The patient was turned from upper endoscopy (see separate procedure note) and kept in the same position and anesthesia was continued and I started the colonoscopy portion of the procedure. Digital rectal exam and visual examination was performed and some old blood is visible in the anal canal and significant hemorrhoid disease is palpable with some amount visible. A well?lubricated colonoscope was advanced without difficulty all the way to the cecum identified by the ileocecal valve, and triangular folds and appendiceal orifice.? I was unable to intubate the terminal ileum despite finding the obvious ileocecal valve. The scope was then slowly withdrawn.?? Retroflexion was performed in the rectum.? The findings/interventions are noted above. The scope was then removed and the patient tolerated the procedure well and then banding was performed (see separate procedure note).
--- NOTE | 2023-05-03 10:38 | W.PM.OP ---
Date of service: 05/03/23 Time of Service: 10:40 Operative Note Operative Note PROCEDURE: Procedures performed: 1.? Anoscopy 2.? Internal Hemorrhoid banding x5 Preoperative diagnosis: Symptomatic grade 2 internal hemorrhoids that were bleeding Postoperative diagnosis: Same Surgeon: Austin Hess Anesthesia: Jorge Indication for procedure: 77-year-old woman on blood thinners with GI bleeding likely related to internal hemorrhoid disease since EGD and colonoscopy did not reveal any obvious bleeding source and the patient has been seeing bright red blood per rectum. Findings: All 3 columns banded. The hemorrhoids were significant enough in size that a second set of bands were able to be placed left lateral and right posterior. A total of 5 banding performed. Surveillance/follow-up recommendations: No follow-up needed.? The durability of hemorrhoidal interventions varies greatly and sometimes is only a few years before other hemorrhoids develop/recur. Complications: None Blood loss: Minimal Specimens:? No Procedure in detail: Written consent was obtained from the patient who was in agreement with the risks, benefits and indications of the procedure.? She was kept in the same position after the colonoscopy was done (see separate procedure note) and a well?lubricated anoscope was introduced in the anal canal carefully evaluated for other pathology such as fistulas and/or fissures.? None were seen. Grade 2 internal hemorrhoids were visualized at all 3 columns.? Rubber band ligation was performed just above the dentate line at each location.? The patient tolerated this procedure well. The scope was then removed and the patient went to the PACU in stable condition and was not having perianal pain at that time. Refer to Anesthesia Record
[2023-05-03] MEDS: ACETAMINOPHEN 1,000 MG/100 ML BTL 400 MG IVPB (10:40)
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
[2023-05-03] MEDS: Ondansetron 4 MG/2 ML VIAL IVP (11:56)
[2023-05-03] MEDS: Acetaminophen 325 MG TAB 650 MG PO (11:56)
[2023-05-03] MEDS: HYDROcodone 5/Acetaminophen 325 TAB PO ×3 (11:56→21:02)
[2023-05-03] MEDS: Metoprolol CR 50 MG TABCR PO (12:56)
[2023-05-03] MEDS: buPROPion-XL 150 MG TABCR 300 MG PO (12:56)
[2023-05-03] MEDS: Levothyroxine 112 MCG TAB PO (14:32)
[2023-05-03] MEDS: busPIRone 5 MG TAB 10 MG PO ×2 (14:33→19:51)
[2023-05-03] MEDS: Gabapentin 600 MG TAB PO ×2 (14:33→19:51)
--- NOTE | 2023-05-03 14:46 | CHAPLAIN ---
Korin was resting in bed when I visited. She said she came in for a colonoscopy and ended up having surgery for bleed hemorrhoids. Her was with her. She's hoping to be discharged tomorrow. I introduced myself and offered support.
--- NOTE | 2023-05-03 16:14 | PGE_ITS ---
Date of Service Date of service: 05/03/23 Time of Service: 16:14 Assessment and Plan Assessment and plan (1) Hemorrhoids with complication: Status: Acute Assessment and plan: Korin is a 77-year-old female who underwent an upper endoscopy and colonoscopy today. She was originally scheduled for colonoscopy only for screening purposes. 5 days ago she started having bleeding which she felt was from her hemorrhoids. Last night it became bad enough that she got worried. She was also having more dizziness and just did not feel well. She was admitted overnight for hydration. She was anemic this morning although I suspect some of that was hydration overnight. She is not feeling dizzy at this point. She is having quite a bit of pain from her internal hemorrhoid banding which was done today. I will increase her [place] codon to every 4 hours as needed. We will add lidocaine ointment. She has sitz bath's. We will also start some Flagyl 500 mg 3 times daily. All her other home medications have been restarted including the Eliquis. Hopefully home tomorrow as long as her pain is better controlled Subjective Subjective Interval history since last seen: Korin underwent an upper endoscopy and colonoscopy with internal hemorrhoid banding today with Dr. Hess. She was admitted yesterday because of rectal bleeding which just started 5 days ago. She is doing okay postoperatively but is having some pain due to the hemorrhoid banding. The hydrocodone is helping but only lasts about 4 hours. She is using the sitz bath's. I am unable to give her Toradol or ibuprofen secondary to her Eliquis. She denies nausea. She was able to eat lunch without difficulty. She has had no fevers. Exam Const General: no acute distress and other (visibly uncomfortable) [facility] Head: normocephalic and atraumatic Resp Effort & Inspection: normal respiratory effort Objective Last Vital Signs Temp 97.9 F 05/03/23 12:15 Pulse 90 05/03/23 12:15 Resp 18 05/03/23 12:15 BP 141/80 H 05/03/23 12:15 Pulse Ox 98 05/03/23 12:15 Laboratory Results - last 24 hr 05/02/23 05/02/23 05/02/23 19:53 21:45 23:01 WBC 9.49 RBC 3.71 L Hgb 11.3 Hct 34.5 L MCV 93 MCH 30.5 MCHC 32.8 RDW 13.5 Plt Count 363 MPV 9.7 Immature Gran % 0.2 Neutrophils % 58.9 Lymphocytes % 30.1 Monocytes % 8.9 Eosinophils % 1.1 Basophils % 0.8 Nucleated RBC % 0.0 Absolute Neutrophils 5.59 Absolute Lymphocytes 2.86 Absolute Monocytes 0.84 H Absolute Eosinophils 0.10 Absolute Basophils 0.08 PT 10.4 INR 1.0 Sodium 128 L Potassium 3.4 L Chloride 94 L Carbon Dioxide 23.6 Anion Gap 10.4 BUN 16 Creatinine 1.7 H Est GFR (CKD-EPI 2020) 30.89 Glucose 122 H Calcium 9.3 Magnesium 1.9 Total Bilirubin 0.5 AST 18 ALT 16 Alkaline Phosphatase 97 Troponin I < 50 < 50 Total Protein 7.8 Albumin 4.0 COVID-19 Source Nasal/Nares SARS-CoV-2 (PCR) Negative Patient ABO/Rh O Positive Antibody Screen NEGATIVE 05/03/23 06:40 WBC 7.36 RBC 2.81 L Hgb 8.5 L D Hct 26.1 L MCV 93 MCH 30.2 MCHC 32.6 RDW 13.4 Plt Count 243 MPV 9.6 Immature Gran % 0.1 Neutrophils % 65.9 Lymphocytes % 24.5 Monocytes % 7.9 Eosinophils % 0.8 Basophils % 0.8 Nucleated RBC % 0.0 Absolute Neutrophils 4.85 Absolute Lymphocytes 1.80 Absolute Monocytes 0.58 Absolute Eosinophils 0.06 Absolute Basophils 0.06 PT INR Sodium 136 Potassium 3.6 Chloride 103 Carbon Dioxide 25.3 Anion Gap 7.7 BUN 11 Creatinine 1.2 H Est GFR (CKD-EPI 2020) 46.91 Glucose 96 Calcium 8.7 Magnesium Total Bilirubin 0.4 AST 14 L ALT 14 Alkaline Phosphatase 73 Troponin I Total Protein 6.1 L Albumin 3.1 L COVID-19 Source SARS-CoV-2 (PCR) Patient ABO/Rh Antibody Screen Time Spent with Patient Time Spent with Patient: <25 minutes Time was spent: ordering medications,tests, procedures and counseling the patient
[2023-05-03] MEDS: Dexlansoprazole 30 MG CAP 60 MG PO (16:58)
[2023-05-03] MEDS: metroNIDAZOLE 500 MG TAB PO (18:08)
[2023-05-03] MEDS: Lidocaine 2% Jelly 6 ML SYR TP (19:50)
[2023-05-03] MEDS: Docusate Sodium 100 MG CAP PO (19:51)
[2023-05-03] MEDS: Normal Saline Flush 10 ML SYR IVP (19:51)
[2023-05-03] MEDS: Budesonide/Formoterol 160/4.5 6 GM 60 PUFF INH IH (20:42)
[2023-05-03] MEDS: QUEtiapine 300 MG TAB PO (21:01)
[2023-05-04] VITALS (7 sets, daily range): BP systolic 97–114; BP diastolic 53–70; PULSE 81–91; RESP 16–18; TEMP 36.7–37.3; O2SAT 93–97
[2023-05-04] MEDS: HYDROcodone 5/Acetaminophen 325 TAB PO ×4 (02:04→22:32)
[2023-05-04] MEDS: metroNIDAZOLE 500 MG TAB PO ×3 (02:05→17:46)
[2023-05-04] MEDS: Levothyroxine 112 MCG TAB PO (05:51)
[2023-05-04 06:55] LABS: HCT 22.4 % (36.0-46.0); HGB 7.3 g/dL (11.2-15.7)
[2023-05-04 07:10] LABS: Anion Gap 10.4 mmol/L (3-11); BUN 8 mg/dL (7-18); CO2 23.6 mmol/L (21.0-32.0); CREATININE 1.2 mg/dL (0.55-1.02); Calcium 8.6 mg/dL (8.5-10.1); Chloride 105 mmol/L (98-107); Estimated GFR 46.91 (mL/min/1.73m2); Glucose 102 mg/dL (74-106); Potassium 3.2 mmol/L (3.5-5.1); Sodium 139 mmol/L (136-145)
[2023-05-04] MEDS: Budesonide/Formoterol 160/4.5 6 GM 60 PUFF INH IH ×2 (07:55→19:23)
[2023-05-04] MEDS: DULoxetine 30 MG CAP 60 MG PO (08:15)
[2023-05-04] MEDS: buPROPion-XL 150 MG TABCR 300 MG PO (08:16)
[2023-05-04] MEDS: Gabapentin 600 MG TAB PO ×3 (08:16→20:36)
[2023-05-04] MEDS: Docusate Sodium 100 MG CAP PO ×2 (08:16→20:35)
[2023-05-04] MEDS: busPIRone 5 MG TAB 10 MG PO ×3 (08:16→20:36)
[2023-05-04] MEDS: Dexlansoprazole 30 MG CAP 60 MG PO (08:17)
[2023-05-04] MEDS: Apixaban 5 MG TAB PO ×2 (08:17→20:39)
[2023-05-04] MEDS: Atorvastatin 20 MG TAB PO (08:17)
[2023-05-04] MEDS: Polyethylene Glycol 3350 17 GM PACKET PO (08:18)
--- NOTE | 2023-05-04 09:40 | W.PM.PROGNOT ---
Date of Service Date of service: 05/04/23 Time of Service: 09:40 Assessment and Plan Assessment and plan (1) GI (gastrointestinal bleed): Status: Chronic Assessment and plan: Hemoglobin is down today, and she is fairly fatigued. We will transfuse a unit of packed red blood cells, and repeat hemoglobin tomorrow. Qualifiers: GI bleed type/associated pathology: anorectal hemorrhage Qualified Code(s): K62.5 - Hemorrhage of anus and rectum Subjective Subjective Interval history since last seen: Lisseth felt pretty well overnight. She was able to sleep without much difficulty. She has not had any more blood per rectum. She is hungry this morning. She has a little bit of pain around her anus, but otherwise feels okay. It is better than yesterday. Exam GI Other: Abdomen is soft, nontender nondistended. Objective Last Vital Signs Temp 99.0 F 05/04/23 07:14 Pulse 81 05/04/23 07:14 Resp 16 05/04/23 07:14 BP 97/53 L 05/04/23 07:14 Pulse Ox 94 05/04/23 07:14 Laboratory Results - last 24 hr 05/04/23 06:38 Hgb 7.3 L Hct 22.4 L Sodium 139 Potassium 3.2 L Chloride 105 Carbon Dioxide 23.6 Anion Gap 10.4 BUN 8 Creatinine 1.2 H Est GFR (CKD-EPI 2020) 46.91 Glucose 102 Calcium 8.6 Time Spent with Patient Time Spent with Patient: 25-34 minutes Time was spent: preparing to see the patient(eg.review tests) and counseling the patient
--- NOTE | 2023-05-04 10:45 | PDOC.CMDIS ---
Date of service: 05/04/23 Time of Service: 10:45 LACE Index Scoring Tool Questions: Length of Stay (in days): 2 Was the patient admitted via the E.D.?: Yes Comorbidities: Mild Liver/Renal Disease E.D. Visits: 0 Answers: Total Score: 7 Risk of Readmission: Low Risk Care Management Discharge Plan Reason for Hospitalization: GI bleed; dehydration, hypokalemia Discharge Plan: Korin will return home once medically cleared. Her will drive her home via private vehicle. She will follow up with her PCP and discharge plan of care. CM will continue to follow. Patient/Family Education Needs: Review discharge instructions, discuss Ask Me Three.
[2023-05-04] MEDS: Potassium Chloride 20 MEQ TABCR 40 MEQ PO (15:41)
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
[2023-05-04] MEDS: Lidocaine 2% Jelly 6 ML SYR TP (17:47)
[2023-05-04] MEDS: QUEtiapine 300 MG TAB PO (22:33)
[2023-05-05] MEDS: metroNIDAZOLE 500 MG TAB PO ×2 (02:30→09:47)
[2023-05-05 04:04] VITALS: BP 83/46; PULSE 95; RESP 18; TEMP 37.1; O2SAT 97
[2023-05-05 04:12] VITALS: BP 110/71; PULSE 92
[2023-05-05] MEDS: Levothyroxine 112 MCG TAB PO (06:13)
[2023-05-05] MEDS: HYDROcodone 5/Acetaminophen 325 TAB PO (06:37)
[2023-05-05 06:39] LABS: HGB 8.1 g/dL (11.2-15.7)
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
[2023-05-05] MEDS: Polyethylene Glycol 3350 17 GM PACKET PO (08:24)
[2023-05-05] MEDS: Dexlansoprazole 30 MG CAP 60 MG PO (08:25)
[2023-05-05] MEDS: busPIRone 5 MG TAB 10 MG PO (08:25)
[2023-05-05] MEDS: buPROPion-XL 150 MG TABCR 300 MG PO (08:26)
[2023-05-05] MEDS: DULoxetine 30 MG CAP 60 MG PO (08:26)
[2023-05-05] MEDS: Atorvastatin 20 MG TAB PO (08:27)
[2023-05-05] MEDS: Gabapentin 600 MG TAB PO (08:28)
[2023-05-05] MEDS: Apixaban 5 MG TAB PO (08:29)
[2023-05-05] MEDS: Docusate Sodium 100 MG CAP PO (08:29)
[2023-05-05] MEDS: Budesonide/Formoterol 160/4.5 6 GM 60 PUFF INH IH (09:07)
--- NOTE | 2023-05-05 10:45 | PDOC.CMDIS ---
Date of service: 05/05/23 Time of Service: 10:45 LACE Index Scoring Tool Questions: Length of Stay (in days): 3 Was the patient admitted via the E.D.?: Yes E.D. Visits: 0 Answers: Total Score: 6 Risk of Readmission: Low Risk Care Management Discharge Plan Reason for Hospitalization: GI bleed; dehydration, hypokalemia Discharge Plan: Korin returned home today with no new services. Her will drive her home via private vehicle. She will follow up with her PCP and discharge plan of care. She is happy to be going home. Patient/Family Education Needs: Review discharge instructions and limitations, discussion of self care needs including ask me three.
== END 2023-05-05 11:25 | disposition home or self-care (01) ==
LOC: ER 21:53 → MS 22:48
PROVIDERS: Student in an Organized Health Care Education/Training Program; Surgery; Admitting Provider Surgery; Emergency Provider Registered Nurse Emergency; PCP Family Medicine; Visit Provider Surgery
PROC: 0DJD8ZZ Inspection of Lower Intestinal Tract, Via Natural or Artificial Opening Endoscopic (ICD-10-PCS; CPT 45378; principal; 2023-05-03 09:00)
DX: K62.5 Hemorrhage of anus and rectum (principal); D62 Acute posthemorrhagic anemia; K64.1 Second degree hemorrhoids; K44.9 Diaphragmatic hernia without obstruction or gangrene; K29.80 Duodenitis without bleeding; E86.0 Dehydration; E87.1 Hypo-osmolality and hyponatremia; E87.6 Hypokalemia; M47.816 Spondylosis without myelopathy or radiculopathy, lumbar region; I48.0 Paroxysmal atrial fibrillation; M48.00 Spinal stenosis, site unspecified; G47.00 Insomnia, unspecified; M85.80 Other specified disorders of bone density and structure, unspecified site; J45.20 Mild intermittent asthma, uncomplicated; K58.1 Irritable bowel syndrome with constipation; E03.9 Hypothyroidism, unspecified; N28.9 Disorder of kidney and ureter, unspecified; E78.00 Pure hypercholesterolemia, unspecified; F31.9 Bipolar disorder, unspecified; K31.84 Gastroparesis
CPT/HCPCS: 45378; 43239; 46221; 00123; 36415; 36416; 80048; 80053; 82962; 86850; 86900; 86901; 86920; 87635; 88305; 93005; 94640; 96360; 96361; 96374; 96375; 99222; 99285; 74177; 83735; 84484; 85014; 85018; 85025; 85610; 93010; 94664; G0378; J0131; J2001; J2405; J2704; J3490; P9016

== ENCOUNTER → 2023-05-03 07:35 | Outpatient (BNVA) | payer MEDICARE, BC, SELFPAY | PROVIDERS: PCP Family Medicine; Referring Provider Family Medicine; Visit Provider Student in an Organized Health Care Education/Training Program ==

== ENCOUNTER → 2023-05-19 09:47 | Outpatient (BNVA) | payer MEDICARE, BC, SELFPAY | PROVIDERS: PCP Family Medicine; Referring Provider Family Medicine; Visit Provider Surgery | DX: K64.8 Other hemorrhoids (principal); R53.83 Other fatigue | CPT/HCPCS: 99214 ==

== ENCOUNTER 2023-05-19 10:48 | Outpatient (CLI) | payer MEDICARE, BC, SELFPAY ==
[2023-05-19 10:54] LABS: HGB 10.8 g/dL (11.2-15.7)
[2023-05-19 11:18] LABS: Iron 23 ug/dL (50-170); Total Iron Binding Capacity 392 ug/dL (250-450); Transferrin Sat 6 % (15-50)
== END 2023-05-19 10:49 | disposition home or self-care (01) ==
LOC: LBO 10:49
PROVIDERS: PCP Family Medicine; Visit Provider Surgery
DX: D64.9 Anemia, unspecified (principal)
CPT/HCPCS: 36415; 99214; 83540; 83550; 85014; 85018

== ENCOUNTER 2023-05-30 01:44 | Outpatient (CLI) | payer MEDICARE, BC, SELFPAY ==
[2023-05-30 14:39] LABS: HCT 33.2 % (36.0-46.0); HGB 10.5 g/dL (11.2-15.7); MCH 29.3 pg (27.0-33.0); MCHC 31.6 % (32.0-36.0); MCV 93 fL (80-95); MPV 10.5 fL (8.0-11.0); Platelet Count 298 10^3/uL (130-400); RBC 3.58 10^6/uL (3.93-5.22); RDW 13.5 % (11.7-14.6); RDW-SD 46.6 fL; WBC 5.33 10^3/uL (4.4-10.8)
[2023-05-30 15:16] LABS: Iron 31 ug/dL (50-170)
[2023-05-30 15:41] LABS: ALT 14 U/L (14-59); AST 24 U/L (15-37); Albumin 3.5 g/dL (3.4-5.0); Alkaline Phosphatase 102 U/L (46-116); Anion Gap 8.6 mmol/L (3-11); BUN 15 mg/dL (7-18); Bilirubin, Total 0.4 mg/dL (0.2-1.0); CO2 25.4 mmol/L (21.0-32.0); CREATININE 1.4 mg/dL (0.55-1.02); Calcium 9.6 mg/dL (8.5-10.1); Chloride 104 mmol/L (98-107); Estimated GFR 38.99 (mL/min/1.73m2); Ferritin 15 ng/mL (8-252); Glucose 122 mg/dL (74-106); Potassium 4.5 mmol/L (3.5-5.1); Sodium 138 mmol/L (136-145); TSH (W/Ref FT4) 1.49 uIU/mL (0.36-3.74); Total Protein 7.4 g/dL (6.4-8.2)
== END 2023-05-30 01:45 | disposition home or self-care (01) ==
LOC: LBO 01:46
PROVIDERS: PCP Family Medicine; Visit Provider Family Medicine
DX: K92.1 Melena (principal); D64.9 Anemia, unspecified; E03.9 Hypothyroidism, unspecified; I10 Essential (primary) hypertension
CPT/HCPCS: 36415; 80053; 85027; 82728; 83540; 84443

== ENCOUNTER 2023-06-15 01:44 | Outpatient (RCR) | payer MEDICARE, BC, SELFPAY ==
[2023-06-07] MEDS: Normal Saline Flush 10 ML SYR IVP (13:22)
[2023-06-07] MEDS: SODIUM FER. GLUC./SUC. 125 MG in Normal Saline 100 ML 110 MG IVPB (13:27)
[2023-06-15] MEDS: SODIUM FER. GLUC./SUC. 125 MG in Normal Saline 100 ML 110 MG IVPB (12:05)
[2023-06-15] MEDS: Normal Saline Flush 10 ML SYR IVP (12:05)
== END 2023-06-15 23:59 | disposition home or self-care (01) ==
LOC: INF 01:44
PROVIDERS: PCP Family Medicine; Visit Provider Family Medicine
DX: D50.9 Iron deficiency anemia, unspecified (principal)
CPT/HCPCS: 96365; J2916

== ENCOUNTER 2023-06-28 04:07 | Outpatient (RCR) | payer MEDICARE, BC, SELFPAY ==
[2023-06-21] MEDS: Normal Saline Flush 10 ML SYR IVP (13:20)
[2023-06-21] MEDS: SODIUM FER. GLUC./SUC. 125 MG in Normal Saline 100 ML 110 MG IVPB (13:20)
[2023-06-28] MEDS: SODIUM FER. GLUC./SUC. 125 MG in Normal Saline 100 ML 110 MG IVPB (13:19)
[2023-06-28] MEDS: Normal Saline Flush 10 ML SYR IVP ×2 (13:19→14:27)
== END 2023-07-16 23:59 | disposition home or self-care (01) ==
LOC: INF 04:07
PROVIDERS: PCP Family Medicine; Visit Provider Family Medicine
DX: D64.9 Anemia, unspecified (principal)
CPT/HCPCS: 96365; J2916

== ENCOUNTER 2023-09-12 10:46 | Outpatient (CLI) | payer MEDICARE, BC, SELFPAY ==
[2023-09-12 12:10] LABS: HCT 41.6 % (36.0-46.0); HGB 13.2 g/dL (11.2-15.7); MCH 30.2 pg (27.0-33.0); MCHC 31.7 % (32.0-36.0); MCV 95 fL (80-95); MPV 10.5 fL (8.0-11.0); Platelet Count 282 10^3/uL (130-400); RBC 4.37 10^6/uL (3.93-5.22); RDW 16.3 % (11.7-14.6); WBC 5.84 10^3/uL (4.4-10.8)
[2023-09-12 12:26] LABS: Iron 78 ug/dL (50-170)
[2023-09-12 12:40] LABS: ALT 18 U/L (14-59); AST 14 U/L (15-37); Alkaline Phosphatase 105 U/L (46-116); Anion Gap 7.3 mmol/L (3-11); BUN 15 mg/dL (7-18); Bilirubin, Total 0.4 mg/dL (0.2-1.0); CO2 29.7 mmol/L (21.0-32.0); CREATININE 1.3 mg/dL (0.55-1.02); Calcium 9.9 mg/dL (8.5-10.1); Chloride 104 mmol/L (98-107); Estimated GFR 42.62 (mL/min/1.73m2); Ferritin 66 ng/mL (8-252); Glucose 107 mg/dL (74-106); Potassium 4.2 mmol/L (3.5-5.1); Sodium 141 mmol/L (136-145); Total Protein 7.8 g/dL (6.4-8.2)
== END 2023-09-12 10:47 | disposition home or self-care (01) ==
LOC: LOS 10:47
PROVIDERS: PCP Family Medicine; Referring Provider Family Medicine; Visit Provider Family Medicine
DX: R79.0 Abnormal level of blood mineral (principal); I10 Essential (primary) hypertension; D50.9 Iron deficiency anemia, unspecified
CPT/HCPCS: 36415; 80053; 85027; 82728; 83540

== ENCOUNTER 2023-10-30 16:05 | Emergency (ER) | payer MEDICARE, BC, SELFPAY ==
[2023-10-30 16:11] VITALS: BP 137/80; PULSE 79; RESP 16; TEMP 36.6; O2SAT 94
--- NOTE | 2023-10-30 17:15 | DI.RAD_ITS ---
Exam(s) XR LUMBAR SPINE COMPLETE EXAM: XR LUMBAR SPINE COMPLETE CLINICAL HISTORY: pain. TECHNIQUE: 2D digital imaging was performed. Five views. COMPARISON: CR XR LUMBAR SPINE COMPLETE from 01/24/2023 FINDINGS: BONES: No fracture or destructive lesion. Vertebral body heights are maintained. Facet degenerative changes are present throughout. There is mild degenerative spondylolisthesis at L4-5 and L5-S1. DISKS: Severe narrowing of the L3-4 disc space on the left side where there are prominent endplate os teophytes. Moderate disc space narrowing seen at L4-5 and L5-S1. Disc space narrowing also seen at L2-3. ALIGNMENT: Degenerative dextroscoliosis. SOFT TISSUE: Vascular calcification. IMPRESSION: Degenerative changes throughout, greatest at L3-4. DATA REPOSITORY: RADIATION DOSE DELIVERED:
--- NOTE | 2023-10-30 17:15 | DI.RAD_ITS ---
Exam(s) XR PELVIS AP XR FEMUR LT EXAM: XR PELVIS AP m, CLINICAL HISTORY: left hip pain. TECHNIQUE: 2D digital imaging was performed. Single AP view. COMPARISON: CR XR HIP RT COMPLETE AP PELVIS from 12/16/2019 CR XR FEMUR LT from 10/30/2023 FINDINGS: BONES: No acute fracture is present. No bony destructive lesion is seen. Hardware is again noted in t he right proximal femur. There is a left knee prosthesis. JOINTS: No dislocation present. No joint space narrowing is present. The SI joints and pubic symphys is are unremarkable. SOFT TISSUE: Normal. IMPRESSION: No acute abnormality. DATA REPOSITORY: RADIATION DOSE DELIVERED:
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
[2023-10-30] MEDS: HYDROmorphone 2 MG/ML SYR 1 MG IM (17:30)
[2023-10-30] MEDS: predniSONE 20 MG TAB 60 MG PO (17:31)
== END 2023-10-30 18:58 | disposition home or self-care (01) ==
PROVIDERS: Emergency Provider Emergency Medicine; PCP Family Medicine
DX: M54.50 Low back pain, unspecified (principal); M25.552 Pain in left hip; Z79.01 Long term (current) use of anticoagulants; Z87.891 Personal history of nicotine dependence
CPT/HCPCS: 73552; 96372; 99283; 72110; 72170; J1170; J7512

== ENCOUNTER 2023-11-13 14:55 | Outpatient (REF) | payer MEDICARE, BC, SELFPAY ==
[2023-11-13 13:05] LABS: Bilirubin Negative (Negative); Blood Trace-intact (Negative); Clarity Sl Cloudy (Clear); Glucose Negative (Negative); Ketones Negative (Negative); Leukocyte Esterase Small (Negative); Nitrite Negative (Negative)
[2023-11-13 13:26] LABS: Bacteria Few HPF (Negative); C & S Indicated? No/Sq. Contamination; Casts Negative LPF (Negative); Crystals Negative HPF (Negative); Epithelial Cells Moderate HPF (Negative); Mucus Negative (Negative); WBC >50 HPF (0-5)
== END 2023-11-13 14:56 | disposition home or self-care (01) ==
LOC: LBN 14:55
PROVIDERS: PCP Family Medicine; Visit Provider Family Medicine
DX: R35.0 Frequency of micturition (principal)
CPT/HCPCS: 81003; 81015

== ENCOUNTER → 2023-11-24 00:07 | Outpatient (CLI) | payer MEDICARE, BC, SELFPAY ==
--- NOTE | 2023-11-24 08:00 | DI.MRI_ITS ---
Exam(s) MR LUMBAR SPINE WO EXAM: MR LUMBAR SPINE WO CLINICAL HISTORY: severe lumbar pain despite conservative care,m54.50,m79.605,lt leg pain. TECHNIQUE: Multiplanar multisequence MRI of the Lumbar spine was performed. COMPARISON: CR XR LUMBAR SPINE AP, LAT from 12/16/2019 MR MR LUMBAR SPINE WO from 12/23/2019 CR XR LUMBAR SPINE COMPLETE from 10/30/2023 FINDINGS: Bones: The last intervertebral disc space is designated the L5/S1 level for the numbering purpose of this ex amination. The vertebral body heights are well maintained. Alignment: Degenerative dextroscoliosis. Degenerative signal changes in the endplates at L4-5. The marrow signal characteristics are otherwis e unremarkable. Cord: The conus tip ends at the T12 level. It is of normal size and signal intensity. T12-L1: No focal disc herniation is present. No central spinal canal stenosis.No neural foraminal st enosis. L1-2:Minimal disc bulging eccentric toward the right. No focal disc herniation is present. No centr al spinal canal stenosis.No neural foraminal stenosis. L2-3:Moderate loss of disc height. Small endplate osteophytes. Mild facet degenerative changes. No focal disc herniation is present. No central spinal canal stenosis.Mild bilateral neural foraminal stenosis. L3-4: Severe loss of disc height with prominent endplate osteophytes eccentric toward the left. Face t degenerative changes.No focal disc herniation is present. No central spinal canal stenosis.Severe left and mild right neural foraminal stenosis. L4-5: Moderate loss of disc height. Concentric disc bulging. Superimposed central disc protrusion. Facet degenerative changes. Moderate central spinal canal stenosis.Severe right and moderate left n eural foraminal stenosis. L5-S1: Mild disc bulging.No focal disc herniation is present. Facet degenerative changes. No centra l spinal canal stenosis.Moderate left and mild right neural foraminal narrowing. Neural foraminal s tenosis. The visualized SI joints and sacrum are unremarkable. Soft tissues: The paraspinal soft tissues are unremarkable. IMPRESSION: Advanced degenerative disc changes and facet degenerative changes at L3-4 and L4-5. Multilevel neura l foraminal narrowing. The findings have progressed somewhat from the prior exam. New central disc protrusion at L4-5. DATA REPOSITORY:
== END ==
PROVIDERS: PCP Family Medicine; Visit Provider Family Medicine
DX: M54.50 Low back pain, unspecified (principal); M79.605 Pain in left leg
CPT/HCPCS: 72148

== ENCOUNTER 2024-02-05 02:12 | Outpatient (CLI) | payer MEDICARE, SELFPAY ==
[2024-02-05 12:22] LABS: Hemoglobin A1C 5.5 % (<5.7)
[2024-02-05 12:48] LABS: HCT 37.8 % (36.0-46.0); HGB 12.5 g/dL (11.2-15.7); MCH 31.5 pg (27.0-33.0); MCHC 33.1 % (32.0-36.0); MCV 95 fL (80-95); MPV 11.2 fL (8.0-11.0); Platelet Count 259 10^3/uL (130-400); RBC 3.97 10^6/uL (3.93-5.22); RDW 13.4 % (11.7-14.6); WBC 5.37 10^3/uL (4.4-10.8)
[2024-02-05 13:04] LABS: ALT 15 U/L (14-59); AST 13 U/L (15-37); Albumin 3.6 g/dL (3.4-5.0); Alkaline Phosphatase 111 U/L (46-116); Anion Gap 10.4 mmol/L (3-11); BUN 16 mg/dL (7-18); Bilirubin, Total 0.31 mg/dL (0.2-1.0); CO2 27.6 mmol/L (21.0-32.0); CREATININE 1.5 mg/dL (0.55-1.02); Calcium 9.7 mg/dL (8.5-10.1); Calculated LDL 66 mg/dL (<100); Chloride 102 mmol/L (98-107); Cholesterol 142 mg/dL (<200); Estimated GFR 35.67 (mL/min/1.73m2); Glucose 104 mg/dL (74-106); HDL Cholesterol 50 mg/dL (40-60); Potassium 4.3 mmol/L (3.5-5.1); Sodium 140 mmol/L (136-145); TSH (W/Ref FT4) 17.37 uIU/mL (0.36-3.74); Total Protein 7.2 g/dL (6.4-8.2); Triglyceride 134 mg/dL (<150); Vitamin B12 367 pg/mL (193-986)
[2024-02-05 13:23] LABS: FREE T4 0.94 ng/dL (0.76-1.46)
== END 2024-02-05 02:13 | disposition home or self-care (01) ==
LOC: LBO 02:13
PROVIDERS: PCP Family Medicine; Visit Provider Family Medicine
DX: I10 Essential (primary) hypertension (principal); N25.9 Disorder resulting from impaired renal tubular function, unspecified; E11.9 Type 2 diabetes mellitus without complications; D64.9 Anemia, unspecified; E03.9 Hypothyroidism, unspecified
CPT/HCPCS: 36415; 80053; 80061; 85027; 82607; 83036; 84439; 84443

== ENCOUNTER 2024-02-07 15:51 | Outpatient (CLI) | payer MEDICARE, BC, SELFPAY ==
--- NOTE | 2024-02-07 06:00 | DI.RAD_ITS ---
Exam(s) XR PAIN CLINIC LUMBAR SP 2V EXAM: XR PAIN CLINIC LUMBAR SP 2V CLINICAL HISTORY: Lumbar Radiculopathy TECHNIQUE: 2D and realtime digital imaging was performed. CONTRAST MATERIAL: Refer to procedure report. COMPARISON: No exams were available for comparison FINDINGS: Fluoroscopy was provided for Dr. Rome during the performance of a lumbar epidural steroid injection. Please refer to the procedure report for complete details. Ka,r=20.3 mGy IMPRESSION: RADIATION DOSE DELIVERED: 0.0 0.0 0
[2024-02-07 16:03] VITALS: BP 131/88; PULSE 75; RESP 20; TEMP 36.3; O2SAT 95
[2024-02-07 16:24] VITALS: PULSE 84; RESP 15; O2SAT 94
[2024-02-07 16:30] VITALS: PULSE 76; RESP 13; O2SAT 95
[2024-02-07 16:35] VITALS: BP 139/93; PULSE 78
[2024-02-07] MEDS: Omnipaque 240 MG/ML 50 ML BTL IJ (16:38)
[2024-02-07] MEDS: methylPREDNISolone ACETATE 80 MG/ML VIAL IJ (16:39)
[2024-02-07] MEDS: Epidural Tray 1 EACH MC (16:40)
--- NOTE | 2024-02-07 17:15 | PDOC.PAIN ---
Date of service: 02/07/24 Time of Service: 17:16 Pain Managment Procedure Note Procedure Note Procedure Note: PROCEDURE NOTE LUMBAR EPIDURAL STEROID INJECTION Date of Service: February 07, 2024 Patient:Lisseth Nguyen? Provider: Elias Rome DO, MPH Lisseth Lomeli has been referred to the [facility] for a lumbar epidural steroid injection. Pre-operative diagnosis: Lumbosacral Radiculopathy Post-operative diagnosis: Same Pre-Procedure Pain: VAS= 6 /10 Comments: I previously evaluated the patient in the office on 01/01/24. She has been off the Eliquis for 3 days and will restart in 24 hours per instructions from her PCP. Lisseth was interviewed and the medical record was reviewed.? There were no medical, pharmacologic, radiographic or other structural contraindications to attempting fluoroscopically guided Lumbar epidural steroid injection.? Risks, potential side effects, indications, and potential benefits of the procedure were reviewed with Lisseth.? Questions and concerns were addressed.? After it was clear that Lisseth was fully informed about the procedure, the printed consent form was signed by the patient and myself.? Lisseth was placed in the prone position on the fluoroscopy table and automated blood pressure cuff and pulse oximeter applied. The skin entry point for entering/approaching the epidural space for the lumbar epidural steroid injection was marked. Following thorough chlorhexadine preparation of the skin and draping and 1% lidocaine infiltration of the skin entry point and subcutaneous tissues, an 18 gauge Touhy needle was placed and advanced under fluoroscopic guidance and with loss of resistance technique into the L5-S1 epidural space. Needle tip placement and depth were aided and confirmed by fluoroscopy. There was no paresthesia or return of blood or CSF through the needle. 1 mls of Omnipaque 240 was injected with clear epidural spread confirmed with fluoroscopy. 80 mg of Depo-Medrol was? injected. This was followed by 1 ml of preservative-free normal saline to flush the steroid out of the needle. There was no unusual discomfort expressed by Lisseth. The needle was withdrawn without difficulty. (49 mls of Omnipaque was wasted) Lisseth was observed and was without hemodynamic, neurologic, or allergic reactions.? Fluoroscopic images were digitally archived. Lisseth's vital signs were stable throughout the procedure and were as recorded in nursing records. Follow up plans and appointments were discussed with Lisseth. Post procedure instruction was given as documented in nursing records and having met discharge criteria Lisseth was discharged from the [facility]. COMMENTS: No apparent complications. Post-procedure pain: VAS= 4/10. Lisseth to contact [facility] as needed. If at least 50% improvement in pain and/or function for at least 3 months is achieved, this procedure can be repeated. I personally performed this entire procedure. ELIAS ROME DO, MPH ABPMR-subspecialty board certification in Pain Medicine [facility]
== END 2024-02-07 15:52 | disposition home or self-care (01) ==
LOC: PC 15:51
PROVIDERS: PCP Family Medicine; Visit Provider Preventive Medicine Occupational Medicine
DX: M54.50 Low back pain, unspecified (principal); M54.17 Radiculopathy, lumbosacral region
CPT/HCPCS: 62323; 72100; J1010; Q9967

== ENCOUNTER 2024-04-17 14:34 | Outpatient (CLI) | payer MEDICARE, BC, SELFPAY ==
--- NOTE | 2024-04-17 06:00 | DI.RAD_ITS ---
Exam(s) XR PAIN CLINIC LUMBAR SP 2V EXAM: XR PAIN CLINIC LUMBAR SP 2V CLINICAL HISTORY: DX: Lumbar Spondylosis TECHNIQUE: 2D and realtime digital imaging was performed. CONTRAST MATERIAL: Refer to procedure report. COMPARISON: No exams were available for comparison FINDINGS: Fluoroscopy was provided for Dr. Rome during the performance of a bilateral lumbar medial branch blo ck. Please refer to the procedure report for complete details. Ka,r=19.5 mGy IMPRESSION: RADIATION DOSE DELIVERED: 0.0 0.0 0
[2024-04-17 14:44] VITALS: BP 131/75; PULSE 74; RESP 20; TEMP 36.6; O2SAT 94
[2024-04-17 15:04] VITALS: O2SAT 95
[2024-04-17 15:06] VITALS: BP 137/99; PULSE 101; PULSE 79; RESP 18; O2SAT 96
[2024-04-17 15:10] VITALS: PULSE 78; RESP 14; O2SAT 94
[2024-04-17 15:15] VITALS: BP 133/91; PULSE 76; PULSE 78; RESP 17; O2SAT 94
[2024-04-17 15:20] VITALS: PULSE 76; RESP 14; O2SAT 94
[2024-04-17] MEDS: Omnipaque 240 MG/ML 50 ML BTL IJ (15:27)
[2024-04-17] MEDS: Nerve Block Tray 1 EACH MC (15:27)
[2024-04-17] MEDS: Bupivacaine 0.5% Pres-Free 10 ML VIAL IJ (15:28)
--- NOTE | 2024-04-17 15:41 | PDOC.PAIN_ITS ---
Date of service: 04/17/24 Time of Service: 15:42 Pain Managment Procedure Note Procedure Note Procedure Note: PROCEDURE NOTE Bilateral Lumbar Medial Branch Blocks #1 Date of Service: April 17, 2024 Patient: Lisseth Lomeli Provider: Elias Rome DO, MPH Lisseth Lomeli has been referred to the [facility] for lumbar medial branch blocks. Pre-operative diagnosis: Lumbar Spondylosis without Myelopathy ICD-10 M47.816 Post-operative diagnosis: Same Pre-procedure pain: VAS= 7/10 COMMENTS: I previously evaluated her in the office. Alexia was interviewed and the medical records were reviewed. There were no medical, pharmacologic, radiographic or other structural contraindications to attempting fluoroscopically guided local anesthetic lumbar medial branch blocks. Risks and potential side effects were discussed. I also discussed the potential benefit(s) of the procedure with Lisseth, and voiced concerns were addressed. After Lisseth was completely informed about the procedure, the printed consent form was signed. A standard time-out procedure was performed. Lisseth was placed in the prone position on the fluoroscopy table. Automated blood pressure cuff and pulse oximeter were applied. The skin entry points for approaching the anatomic target points of the segmental medial branches of bilateral L3,L4,L5 were identified with fluoroscopy and marked. The skin at the target site area was thoroughly prepared with Chlorhexadine. The skin was then draped. Next, a 25 gauge 3.5 spinal needle was placed under fluoroscopic guidance down on to the target point (the articular pillar) for each respective segmental medial branch. Position was confirmed in A/P and lateral views. Aspiration revealed no blood or clear fluid. Next, 0.25ml of omnipaque 240 was injected at each level. No contrast following a vascular or neural pattern was visualized under continuous fluoroscopy. Next, 0.25 ml of preservative-free 0.5% bupivicaine was injected at each level. There was no unusual discomfort expressed by Lisseth. The needles were withdrawn without difficulty. (49 mls of Omnipaque was wasted) Lisseth was observed and was without hemodynamic, neurologic, or allergic reactions.? Fluoroscopic images were digitally archived. Provacative testing using the Modified Ortega's facet loading test- Left side Right Side Directly before the block VAS (0-10) = 7/10 VAS (0-10) = 7/10 Five minutes after the block VAS (0-10) = 4/10 VAS (0-10) = 4/10 Percentage relief obtained with this diagnostic block 50% 50% Any improved physical functioning directly after the blocks? Able to extend her low back much easier. Follow up plans and appointments were discussed with Lisseth. Lisseth was instructed to keep careful note of how the usual pain was modified by these injections. Specifically, to keep a pain diary for the next 4 hours using a numeric pain scale of 0-10 and report these results. Post procedure instruction was given as documented in the nursing documentation and having met discharge criteria, the patient was discharged from the [facility]. Based on the medial branches blocked today, if they patient has adequate relief and we are able to proceed to radiofrequency ablation, the treatment should result in the denervation of the bilateral L4-L5 and L5-S1 facet joints. We would expect to denervate a total of 4 facets during the radiofrequency ablation. COMMENTS: No apparent complications. Post-procedure pain: VAS= 4/10 Lisseth will call back with 0-4 hour post-procedure pain scores. I personally performed the entire procedure. ELIAS ROME DO, MPH ABPM&R-subspecialty board certification in Pain Medicine [facility]
== END 2024-04-17 14:35 | disposition home or self-care (01) ==
LOC: PC 14:34
PROVIDERS: PCP Family Medicine; Visit Provider Preventive Medicine Occupational Medicine
DX: M54.50 Low back pain, unspecified (principal); M47.816 Spondylosis without myelopathy or radiculopathy, lumbar region
CPT/HCPCS: 64493; 64494; 72100; J0665; Q9967

== ENCOUNTER 2024-08-27 10:35 | Outpatient (CLI) | payer MEDICARE, BC, SELFPAY ==
[2024-08-27 12:42] LABS: Hemoglobin A1C 5.6 % (<5.7)
[2024-08-27 19:31] LABS: Hepatitis C Ab w Rflx HCV PCR Negative (Negative)
== END 2024-08-27 10:36 | disposition home or self-care (01) ==
LOC: LOS 10:35
PROVIDERS: PCP Family Medicine; Referring Provider Family Medicine; Visit Provider Family Medicine
DX: Z11.59 Encounter for screening for other viral diseases (principal); E11.9 Type 2 diabetes mellitus without complications; E03.9 Hypothyroidism, unspecified; Z79.01 Long term (current) use of anticoagulants; I10 Essential (primary) hypertension
CPT/HCPCS: 36415; 86803; 83036

== ENCOUNTER 2025-03-27 04:16 | Outpatient (CLI) | payer MEDICARE, BC, SELFPAY ==
[2025-03-27 14:48] LABS: HCT 38.9 % (36.0-46.0); HGB 12.6 g/dL (11.2-15.7); MCH 32.0 pg (27.0-33.0); MCHC 32.4 % (32.0-36.0); MCV 99 fL (80-95); MPV 10.0 fL (8.0-11.0); Platelet Count 248 10^3/uL (130-400); RBC 3.94 10^6/uL (3.93-5.22); RDW 13.0 % (11.7-14.6); RDW-SD 47.3 fL; WBC 6.84 10^3/uL (4.4-10.8)
[2025-03-27 16:32] LABS: ALT 17 U/L (14-59); AST 14 U/L (15-37); Albumin 3.8 g/dL (3.4-5.0); Alkaline Phosphatase 115 U/L (46-116); Anion Gap 5.1 mmol/L (3-11); BUN 11 mg/dL (7-18); Bilirubin, Total 0.5 mg/dL (0.2-1.0); CO2 30.9 mmol/L (21.0-32.0); Calcium 9.2 mg/dL (8.5-10.1); Chloride 104 mmol/L (98-107); Estimated GFR 38.51 (mL/min/1.73m2); Glucose 93 mg/dL (74-106); Potassium 4.2 mmol/L (3.5-5.1); Sodium 140 mmol/L (136-145); Total Protein 7.2 g/dL (6.4-8.2)
[2025-03-27 17:37] LABS: TSH (W/Ref FT4) 13.39 uIU/mL (0.36-3.74)
== END 2025-03-27 04:17 | disposition home or self-care (01) ==
LOC: LBO 04:16
PROVIDERS: PCP Family Medicine; Visit Provider Family Medicine
DX: E03.9 Hypothyroidism, unspecified (principal); Z79.01 Long term (current) use of anticoagulants; I10 Essential (primary) hypertension
CPT/HCPCS: 36415; 80053; 85027; 84439; 84443

== ENCOUNTER 2025-06-23 15:27 | Outpatient (CLI) | payer MEDICARE, BC, SELFPAY ==
--- NOTE | 2025-06-23 15:15 | RT.EKG_ITS ---
APPROVED REPORT Exam: Resting ECG Reason for Exam: chest pain Patient Location: O HR:85 bpm ECG Measurements Heart Rate 85 AXIS IA 185 P 56 QRSd 87 QRS 30 QT 369 T 35 QTc 439 Conclusion Sinus rhythm...normal P axis, V-rate 50- 99 Borderline low voltage, extremity leads...all extremity leads <0.6mV Otherwise normal ECG
== END 2025-06-23 15:28 | disposition home or self-care (01) ==
LOC: DI.CM 15:28
PROVIDERS: PCP Family Medicine; Visit Provider Nurse Practitioner Family
DX: R07.9 Chest pain, unspecified (principal)
CPT/HCPCS: 93010

== ENCOUNTER 2025-06-23 16:49 | Emergency (ER) | payer MEDICARE, BC, SELFPAY ==
[2025-06-23] VITALS (12 sets, daily range): BP systolic 135–170; BP diastolic 85–91; PULSE 72–80; RESP 16–20; TEMP 37.3; O2SAT 92–98
--- NOTE | 2025-06-23 16:45 | RT.EKG_ITS ---
APPROVED REPORT Exam: Resting ECG Reason for Exam: Chest Pain Patient Location: E HR:82 bpm ECG Measurements Heart Rate 82 AXIS IN 175 P 24 QRSd 75 QRS 25 QT 337 T 166 QTc 394 Conclusion Sinus rhythm...normal P axis, V-rate 60- 99
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
[2025-06-23 19:01] LABS: Abs Immature Grans 0.02 10^3/uL (0.0-0.06); HCT 39.7 % (36.0-46.0); HGB 13.1 g/dL (11.2-15.7); Immature Grans % 0.3 %; MCH 31.2 pg (27.0-33.0); MCHC 33.0 % (32.0-36.0); MCV 95 fL (80-95); MPV 10.4 fL (8.0-11.0); Platelet Count 264 10^3/uL (130-400); RBC 4.20 10^6/uL (3.93-5.22); RDW 13.0 % (11.7-14.6); RDW-SD 45.0 fL; WBC 7.59 10^3/uL (4.4-10.8)
[2025-06-23 19:27] LABS: COVID-19 PCR Negative (Negative); RSV PCR Negative (Negative)
[2025-06-23 19:42] LABS: Troponin I 5 ng/L (<35)
[2025-06-23 19:45] LABS: Magnesium 2.3 mg/dL (1.6-2.6)
[2025-06-23 19:46] LABS: ALT 11 U/L (10-49); AST 19 U/L (<34); Albumin 4.5 g/dL (3.2-5.0); Alkaline Phosphatase 104 U/L (46-116); Anion Gap 8.3 mmol/L (3-11); BUN 11 mg/dL (9-23); Bilirubin, Total 0.30 mg/dL (0.2-1.2); CO2 28.7 mmol/L (20.0-31.0); Calcium 9.4 mg/dL (8.3-10.6); Chloride 105 mmol/L (98-107); Glucose 102 mg/dL (74-106); Potassium 4.5 mmol/L (3.5-5.1); Sodium 142 mmol/L (136-145); Total Protein 7.1 g/dL (5.7-8.2)
[2025-06-23 19:57] LABS: D-Dimer 563 ng/mlFEU (<500)
[2025-06-23 20:43] LABS: Troponin I 5 ng/L (<35)
== END 2025-06-23 21:18 | disposition home or self-care (01) ==
PROVIDERS: Emergency Provider Emergency Medicine; PCP Family Medicine
DX: R07.9 Chest pain, unspecified (principal); R06.02 Shortness of breath; Z59.41 Food insecurity; I48.0 Paroxysmal atrial fibrillation
CPT/HCPCS: 99284 ×2; 80053; 87637; 93005; 83735; 84484; 85025; 85379; 93010